=== PATIENT | female | born 1940 | race Caucasian/White ===

== ENCOUNTER 2016-06-06 20:37 | Emergency (ER) | payer MEDICARE ==
[2016-06-06 21:24] VITALS: BP 133/54
[2016-06-06] MEDS ORDERED: BSS OPTH.SOL* BTL ONE ×2 (21:56→22:02)
[2016-06-06] MEDS ORDERED: Fluorescein Sodium TOPICAL* 1 MG TEST ONE (21:56)
--- NOTE | 2016-06-06 22:16 | UC ---
Eye Complaint HPI - HPI Summary HPI Summary: pt is acocmpanied by . Pt reports that [place] and the wind blew dirt/dust into her right eye. Pt reports that she irrigated her right eye with copious amounts of water but still has FB sensation. Pt reports pain worsens with blinking of eye. - History of Current Complaint Chief Complaint: UCEye Stated Complaint: FB RIGHT EYE Time Seen by Provider: 06/06/16 21:51 Hx Obtained From: Patient Hx Last Menstrual Period: n/a ?: No Onset/Duration: Sudden Onset, Lasting Hours Timing: Constant - with blinking Severity Initially: Mild Severity Currently: Mild Character: Foreign Body Sensation Aggravating Factor(s): Light, Other - blinking Associated Signs And Symptoms: Positive: Drainage (Clear) - Allergies/Home Medications Allergies/Adverse Reactions: Allergies Allergy/AdvReac Type Severity Reaction Status Date / Time Adhesive Tape Allergy Intermediate Rash Verified 06/06/16 21:08 Penicillins Allergy Intermediate Hives Verified 06/06/16 21:08 Amoxicillin Allergy Hives Verified 06/06/16 21:08 Prednisone Allergy Facial Verified 06/06/16 21:08 Redness/Flushing Tetracycline AdvReac Intermediate Headache Verified 06/06/16 21:08 Home Medications: Home Medications Meclizine TAB* [Antivert 12.5 TAB*] 25 mg PO TID PRN 06/06/16 [History Confirmed 06/06/16] PMH/Surg Hx/FS Hx/Imm Hx Previously Healthy: Yes Endocrine History Of: Denies: Diabetes Cardiovascular History Of: Denies: Hypertension, Congestive Heart Failure Respiratory History Of: Reports: Asthma, Bronchitis - HX OF GI/ History Of: Denies: Renal Disease Cancer History Of: Denies: Breast Cancer - Surgical History Surgical History: Yes Surgery Procedure, Year, and Place: GALLBLADDER 2004[id number]. right knee surgery- [facility]. x2[facility] wall hernia[facility], then mesh infection and subsequent removal. Hernia repair Mar 2016. TUBAL LIGATION - Family History Known Family History: Positive: None - Social History Occupation: Retired Alcohol Use: None Substance Use Type: None Smoking Status (MU): Never Smoked Tobacco - Immunization History Most Recent Influenza Vaccination: 2016 Most Recent Tetanus Shot: UTD Most Recent Pneumonia Vaccination: 11/2013 Review of Systems Constitutional: Negative Skin: Negative Eyes: Drainage, Eye Redness, Other - FB sensation ENT: Negative Respiratory: Negative Cardiovascular: Negative Gastrointestinal: Negative Genitourinary: Negative Motor: Negative Neurovascular: Negative Musculoskeletal: Negative Neurological: Negative Psychological: Negative All Other Systems Reviewed And Are Negative: Yes Physical Exam Triage Information Reviewed: Yes Appearance: Well-Appearing Vital Signs: Initial Vital Signs Temp 98.1 F 06/06/16 21:12 Pulse 80 06/06/16 21:12 Resp 18 06/06/16 21:12 BP 133/54 06/06/16 21:12 Pulse Ox 98 06/06/16 21:12 Vital Signs Reviewed: Yes Eye Exam: Other - scleritis Eyes: Positive: Conjunctiva Clear, Other: - negative uptake for flurouscein, no fb visualized Respiratory Exam: Other Respiratory: Positive: No respiratory distress Musculoskeletal Exam: Normal Neurological Exam: Normal Psychological Exam: Normal Skin Exam: Normal Eye Complaint Course/Dx - Differential Dx/Diagnosis Differential Diagnosis/HQI/PQRI: Corneal Abrasion, Foreign Body Provider Diagnoses: possible FB right eye. eye pain right eye Discharge - Discharge Plan Condition: Stable Disposition: HOME Patient Education Materials: Eye Pain (ED) Referrals: Jonh Gallardo MD [Primary Care Provider] - Additional Instructions: Please follow up with your eye care provider tomorrow if your symptoms do not improve.
== END 2016-06-06 22:18 | disposition home or self-care (01) ==
LOC: UCCORT 20:37
DX: H57.11 Ocular pain, right eye (principal)
CPT/HCPCS: 99212; A9270-GY; G0463

== ENCOUNTER 2017-10-23 11:41 | Emergency (ER) | payer MEDICARE ==
--- OUTSIDE RECORDS SUMMARY | 2017-10-23 12:00 | XMS REPORT ---
:1940 External Reference #:[id number] Author Organization [facility] Address [address] [place] [address] Phone [phone] Care Team Providers Name Role Phone Jonh Gallardo M.D. Primary Care Physician Unavailable Payers Type Date Identification Numbers Payment Provider Subscriber Medicare Primary Effective: Policy Number: Medicare-National Mariangel Oviedo 2006 [id number] [id number] PayID: [id number] [address] [place] [address] Medigap Part B Effective: Policy Number: Aarp United Mariangel Oviedo 2014 [id number] Healthcare Group Name: Medicare Supplement Plan [facility] Claims PayID: [id number] [address] [place] [address] Medigap Part B Effective: 2009 Policy Number: [id number] Anabell Oviedo Expires: 2014 [facility] [address] [place] [address] Problems Date Description Provider Status Onset: 03/15/2017 Uncomplicated moderate persistent LORI EncarnacionC Active asthma Onset: 07/28/2016 Mild persistent asthma Cristian Abreu M.D. Active Onset: 07/28/2016 Body mass index 30+ - obesity Cristian Abreu M.D. 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 Has a window air conditioner Home Environment Stairs are present Home Environment The basement is dry Home Environment Finished Basement Home Environment Cotton Comforter Home Environment Mattress is 8 years old Home Environment Mattress is not encased in an allergy proof case Home Environment Regular Mattress Home Environment Pillows are polyester Home Environment Pillows are not encased in an allergy proof case Home Environment Does not use a dehumidifier Home Environment There are draperies in the home Home Environment The home is not daryl Home Environment The floors are wood Home Environment The floors are carpeted Home Environment Uses hot water heating Home Environment Uses baseboard heating Home Environment [place] Home Environment Water Source: Well Smoke-Free Home is smoke-free Pets 1 cat Pets 1 dog Occupation Retired ETOH Use Denies alcohol use Smoking Patient has never smoked Recreational Drug Use Denies Drug Use Allergies, Adverse Reactions, Alerts Date Description Reaction Status Severity Comments 08/07/2001 Amoxicillin Urticaria active 07/28/2016 Tetracycline active headache 09/28/2017 Adhesives (Tape) reddens skin active Medications Medication Date Status Form Strength Qnty SIG Indications Ordering Provider Proair HFA 06/22/ Active Aerosol 108(90Base 1units 2 puffs q4 2016 ) mcg/Act hours when Uldrich, needed. FOUNTAIN WAITRESS/WAITER-C pre-exerci se 2 puffs Flovent HFA 02/25/ Active Aerosol 110mcg/Act 1units inhale 2 J45.40 Alba 2016 puffs by Uldrich, mouth FOUNTAIN WAITRESS/WAITER-C twice a day Omeprazole / Active Capsules DR 40mg once a day Unknown 0000 Sucralfate / Active Tablets 1gm once a day Unknown 0000 Vitamin B12 / Active Tablets 100mcg once a day Unknown 0000 Calcium / Active Capsules 200-100-33 Unknown 600/Magnesium 0000 .3mg-mg-Un 300/Vitamin D it Fish Oil / Active Capsules 600mg once a day Unknown 0000 Nystatin / Active Cream [id number] Morgan To Unknown 0000 /GM Affected Areas Under Breasts tid prn Metamucil / Active Packet 51.7% once a Unknown Fiber 0000 day. Domperidone / Active 10mg once a day Unknown 0000 Fluticasone / Active Suspension 50mcg/Act 16unit 1 spray in Alba Propionate 0000 s each Uldrich, nostril FOUNTAIN WAITRESS/WAITER-C twice daily Vitamin D3 / Active Capsules 1000Unit 1 by mouth Unknown 0000 every day Medications Administered in Office Medication Date Status Form Strength Qnty SIG Indications Ordering Provider Injection 09/28/ Administered Injection Allergy 2017 Injection Injection 08/01/ Administered Injection Allergy 2017 Injection Injection 07/17/ Administered Injection Allergy 2017 Injection Injection 07/03/ Administered Injection Cristian Goldie 2017 Deisy Abreu Injection 07/03/ Administered Injection Allergy 2017 Injection Injection 06/19/ Administered Injection Allergy 2017 Injection Injection 05/29/ Administered Injection Allergy 2017 Injection Injection 05/15/ Administered Injection Allergy 2017 Injection Injection 05/03/ Administered Injection Allergy 2018 Injection Injection 04/19/ Administered Injection Allergy 2018 Injection Injection 03/13/ Administered Injection Allergy 2018 Injection Injection 02/15/ Administered Injection Allergy 2018 Injection Injection 01/09/ Administered Injection Allergy 2018 Injection Injection 12/07/ Administered Injection Allergy 2017 Injection Injection 11/07/ Administered Injection Allergy 2017 Injection Injection 10/24/ Administered Injection Allergy 2017 Injection Injection 10/03/ Administered Injection Allergy 2017 Injection Injection 09/19/ Administered Injection Allergy 2016 Injection Injection 08/29/ Administered Injection Allergy 2016 Injection Injection 08/15/ Administered Injection Allergy 2016 Injection Injection 08/01/ Administered Injection Allergy 2016 Injection Injection 07/20/ Administered Injection Allergy 2016 Injection Injection 07/06/ Administered Injection Allergy 2016 Injection Injection 06/21/ Administered Injection Allergy 2016 Injection Injection 06/08/ Administered Injection Allergy 2016 Injection Injection 05/30/ Administered Injection Cristian Abreu M.D. Injection 05/30/ Administered Injection Allergy 2016 Injection Injection 05/16/ Administered Injection Allergy 2016 Injection Injection 05/02/ Administered Injection Allergy 2016 Injection Injection 04/18/ Administered Injection Allergy 2016 Injection Injection 04/06/ Administered Injection Allergy 2016 Injection Injection 03/07/ Administered Injection Allergy 2016 Injection Injection // Administered Injection Cristian Amezcua 2016 Deisy Abreu Injection 01/31/ Administered Injection Allergy 2016 Injection Injection 01/05/ Administered Injection Allergy 2016 Injection Injection 12/01/ Administered Injection Allergy 2015 Injection Injection 11/15/ Administered Injection Allergy 2015 Injection Injection 10/20/ Administered Injection Allergy 2015 Injection Injection 10/04/ Administered Injection Allergy 2015 Injection Injection 09/20/ Administered Injection Allergy 2015 Injection Injection 08/30/ Administered Injection Allergy 2015 Injection Injection 08/09/ Administered Injection Allergy 2015 Injection Injection 07/19/ Administered Injection Allergy 2015 Injection Injection 06/28/ Administered Injection Allergy 2015 Injection Injection 06/14/ Administered Injection Allergy 2015 Injection Injection 06/02/ Administered Injection Allergy 2015 Injection Injection 05/17/ Administered Injection Allergy 2015 Injection Injection 04/26/ Administered Injection Allergy 2015 Injection Injection 04/12/ Administered Injection Allergy 2015 Injection Injection 02/18/ Administered Injection Allergy 2015 Injection Injection 01/19/ Administered Injection Allergy 2016 Injection Injection 12/22/ Administered Injection Allergy 2015 Injection Injection 11/24/ Administered Injection Allergy 2015 Injection Injection 11/17/ Administered Injection Allergy 2015 Injection Injection 11/10/ Administered Injection Allergy 2015 Injection Injection 11/03/ Administered Injection Allergy 2015 Injection Injection 10/29/ Administered Injection Allergy 2015 Injection Injection 10/06/ Administered Injection Allergy 2015 Injection Injection 09/15/ Administered Injection Allergy 2015 Injection Injection 08/18/ Administered Injection Allergy 2015 Injection Injection 06/23/ Administered Injection Allergy 2015 Injection Injection 06/04/ Administered Injection Allergy 2015 Injection Injection 05/19/ Administered Injection Allergy 2015 Injection Injection 05/05/ Administered Injection Allergy 2015 Injection Injection 04/28/ Administered Injection Allergy 2015 Injection Injection 03/17/ Administered Injection Allergy 2015 Injection Injection 02/10/ Administered Injection Allergy 2015 Injection Injection 01/06/ Administered Injection Allergy 2015 Injection Injection 12/02/ Administered Injection Allergy 2013 Injection Injection 11/04/ Administered Injection Allergy 2013 Injection Injection 10/21/ Administered Injection Jj 2013 Deisy Monson Injection 10// Administered Injection Allergy 2013 Injection Injection 10/07/ Administered Injection Jj 2013 Deisy Monson Injection 10/07/ Administered Injection Allergy 2013 Injection Injection 09/16/ Administered Injection Jj 2013 Deisy Monson Injection 09/16/ Administered Injection Allergy 2013 Injection Injection 09/02/ Administered Injection Jj 2013 Deisy Monson Injection 09/02/ Administered Injection Allergy 2013 Injection Injection 08/19/ Administered Injection Allergy 2013 Injection Injection 08/05/ Administered Injection Jj 2013 Deisy Monson Injection 08/05/ Administered Injection Allergy 2013 Injection Injection 08/28/ Administered Injection Jj 2013 Deisy Monson Injection // Administered Injection Allergy 2013 Injection Injection // Administered Injection Jj 2013 Deisy Monson Injection 07/08/ Administered Injection Allergy 2013 Injection Injection 07/31/ Administered Injection Allergy 2013 Injection Injection // Administered Injection Allergy 2013 Injection Injection // Administered Injection Jj 2013 Deisy Monson Injection // Administered Injection Allergy 2013 Injection Injection 05// Administered Injection Jj 2013 Deisy Monson Injection // Administered Injection Allergy 2013 Injection Injection 05/29/ Administered Injection Jj 2013 Deisy Monson Injection 05/29/ Administered Injection Allergy 2013 Injection Injection 05/01/ Administered Injection Jj 2013 Deisy Monson Injection 05/01/ Administered Injection Allergy 2013 Injection Injection 04/05/ Administered Injection Allergy 2013 Injection Injection 03/08/ Administered Injection Jj 2013 Deisy Monson Injection 03/08/ Administered Injection Allergy 2013 Injection Injection 02/08/ Administered Injection Jj 2013 Deisy Monson Injection // Administered Injection Allergy 2013 Injection Injection 12/26/ Administered Injection Jj 2012 Deisy Monson Injection // Administered Injection Allergy 2012 Injection Injection 11/30/ Administered Injection Jj 2012 Deisy Monson Injection 11/30/ Administered Injection Allergy 2012 Injection Injection 10/24/ Administered Injection Allergy 2012 Injection Injection 09/05/ Administered Injection Jj 2012 Deisy Monson Injection 09/05/ Administered Injection Allergy 2012 Injection Injection // Administered Injection Jj 2012 Deisy Monson Injection // Administered Injection Allergy 2012 Injection Injection 08// Administered Injection Jj 2012 Deisy Monson Injection // Administered Injection Allergy 2012 Injection Injection 08/29/ Administered Injection Jj 2012 Deisy Monson Injection 08/29/ Administered Injection Allergy 2012 Injection Injection 08/03/ Administered Injection Jj 2012 Deisy Monson Injection 08/03/ Administered Injection Allergy 2012 Injection Injection 07/18/ Administered Injection Tamanna Chiquis 2012 Deisy Chi Injection 06/11/ Administered Injection Jj 2012 Deisy Monson Injection 07/18/ Administered Injection Allergy 2012 Injection Injection 07/04/ Administered Injection Jj 2012 Deisy Monson Injection 07/04/ Administered Injection Allergy 2012 Injection Injection 06/20/ Administered Injection Jj 2012 Deisy Monson Injection 06/20/ Administered Injection Allergy 2012 Injection Injection 06/06/ Administered Injection Jj 2012 Deisy Monson Injection 06/06/ Administered Injection Allergy 2012 Injection Injection 05/23/ Administered Injection Jj 2012 Deisy Monson Injection 05/23/ Administered Injection Allergy 2012 Injection Injection 05/09/ Administered Injection Jj 2012 Deisy Monson Injection 05/09/ Administered Injection Allergy 2012 Injection Injection 04/18/ Administered Injection Jj 2012 Deisy Monson Injection 03/21/ Administered Injection Jj 2012 Deisy Monson Injection 02/21/ Administered Injection Jj 2012 Deisy Monson Injection 01/17/ Administered Injection Jj 2011 Deisy Monson Injection 11/22/ Administered Injection Jj 2011 Deisy Monson Injection 11/01/ Administered Injection Jj 2011 Deisy Monson Injection 10/18/ Administered Injection Jj 2011 Deisy Monson Injection 09/27/ Administered Injection Jj 2011 Deisy Monson Injection 09/13/ Administered Injection Jj 2011 Deisy Monson Injection 08/30/ Administered Injection Jj 2011 Deisy Monson Injection 08/16/ Administered Injection Jj 2011 Deisy Monson Injection 08/02/ Administered Injection Jj 2011 Deisy Monson Injection 07/21/ Administered Injection Jj 2011 Deisy Monson Injection 07/05/ Administered Injection Jj 2011 Deisy Monson Injection 06/23/ Administered Injection Jj 2011 Deisy Monson Injection 06/07/ Administered Injection Jj 2011 Deisy Monson Injection 05/26/ Administered Injection Jj 2011 Deisy Monson Injection 05/10/ Administered Injection Jj 2011 Deisy Monson Celestone/Cor 05/03/ Administered Injection Jj tisone 2011 Ermias, [id number] M.DNito cc Injection 04/19/ Administered Injection Jj 2011 Deisy Monson Injection 04/06/ Administered Injection Jj 2011 Deisy Monson Injection 03/09/ Administered Injection Jj 2011 Deisy Monson Injection 02/09/ Administered Injection Jj 2011 Deisy Monson Injection 01/12/ Administered Injection Jj 2010 Deisy Monson Injection 12/17/ Administered Injection Jj 2010 Deisy Monson Injection 11/26/ Administered Injection Jj 2010 Deisy Monson Injection 11/10/ Administered Injection Jj 2010 Deisy Monson Injection 10/27/ Administered Injection Jj 2010 Deisy Monson Injection 10/13/ Administered Injection Jj 2010 Deisy Monson Injection 09/22/ Administered Injection Jj 2010 Deisy Monson Injection 09/10/ Administered Injection Jj 2010 Deisy Monson Injection 08/25/ Administered Injection Jj 2010 Deisy Monson Injection 08/11/ Administered Injection Jj 2010 Deisy Monson Injection 07/28/ Administered Injection Jj 2010 Deisy Monson Injection 06/25/ Administered Injection Jj 2010 Deisy Monson Celestone/Cor 06/18/ Administered Injection Jj tisone 2010 Ermias [id number] 1 M.DNito cc Injection 06/02/ Administered Injection Jj 2010 Deisy Monson Injection 05/19/ Administered Injection Jj 2010 Deisy Monson Injection 05/05/ Administered Injection Jj 2010 Deisy Monson Injection 04/21/ Administered Injection Jj 2010 Deisy Monson Injection 03/19/ Administered Injection Jj 2010 Deisy Monson Injection 02/12/ Administered Injection Jj 2010 Deisy Monson Injection 01/20/ Administered Injection Jj 2009 Diesy Monson Injection 12/25/ Administered Injection Jj 2009 Deisy Monson Injection 11/27/ Administered Injection Jj 2009 Deisy Monson Injection 11/11/ Administered Injection Tamanna M 2009 Deisy Chi Injection 10/28/ Administered Injection Jj 2009 Deisy Monson Injection 10/16/ Administered Injection Jj 2009 Deisy Monson Injection 09/30/ Administered Injection Jj 2009 Deisy Monson Injection 09/16/ Administered Injection Jj 2009 Deisy Monson Injection 08/26/ Administered Injection Jj 2009 Deisy Monson Injection 08/12/ Administered Injection Jj 2009 Deisy Monson Injection 07/22/ Administered Injection Jj 2009 Deisy Monson Injection 07/01/ Administered Injection Jj 2009 Deisy Monson Injection 06/17/ Administered Injection Jj 2009 Deisy Monson Injection 06/03/ Administered Injection Jj 2009 Deisy Monson Injection 05/20/ Administered Injection Jj 2009 Deisy Monson Injection 05/06/ Administered Injection Jj 2009 Deisy Monson Injection 04/08/ Administered Injection Jj 2009 Deisy Monson Injection 03/11/ Administered Injection Tamanna M 2009 Deisy Chi Injection 02/11/ Administered Injection Jj 2009 Deisy Monson Injection 01/16/ Administered Injection Jj 2008 Deisy Monson Injection 12/17/ Administered Injection Christopher 2008 Jes[facility]s House M.D. Injection 11/19/ Administered Injection Jj 2008 Deisy Monson Injection 10/29/ Administered Injection Jj 2008 Deisy Monson Injection 10/15/ Administered Injection Jj 2008 Deisy Monson Injection 10/01/ Administered Injection Jj 2008 Deisy Monson Injection 09/10/ Administered Injection Jj 2008 Deisy Monson Injection 08/27/ Administered Injection Jj 2008 Deisy Monson Injection 08/13/ Administered Injection Jj 2008 Deisy Monsno Injection 08/01/ Administered Injection Jj 2008 Deisy Monson Injection 07/18/ Administered Injection Jj 2008 Deisy Monson Injection 07/04/ Administered Injection Jj 2009 Deisy Monson Injection 06/25/ Administered Injection Jj 2009 Deisy Monson Injection 06/13/ Administered Injection Jj 2008 Deisy Monson Injection 05/30/ Administered Injection Jj 2008 Deisy Monson Injection 05/21/ Administered Injection Jj 2009 Deisy Monson Injection 04/23/ Administered Injection Jj 2008 Deisy Monson Injection 03/26/ Administered Injection Jj 2009 Deisy Monson Injection 02/26/ Administered Injection Jj 2008 Deisy Monson Injection 01/24/ Administered Injection Jj 2007 Deisy Monson Injection 12/25/ Administered Injection Jj 2007 Deisy Monson Injection 11/20/ Administered Injection Jj 2007 Deisy Monson Injection 11/06/ Administered Injection Jj 2007 Deisy Monson Injection 10/23/ Administered Injection Jj 2007 Deisy Monson Injection 10/09/ Administered Injection Jj 2007 Deisy Monson Injection 09/25/ Administered Injection Jj 2007 Deisy Monson Injection 09/13/ Administered Injection Jj 2007 Deisy Monson Injection 08/21/ Administered Injection Jj 2007 Deisy Monson Injection 08/07/ Administered Injection Jj 2007 Deisy Monson Injection 07/26/ Administered Injection Jj 2007 Deisy Monson Injection 06/19/ Administered Injection Jj 2007 Deisy Monson Injection 05/29/ Administered Injection Jj 2007 Deisy Monson Injection 05/08/ Administered Injection Jj 2007 Deisy Monson Injection 04/24/ Administered Injection Jj 2007 Deisy Monson Injection 03/28/ Administered Injection Jj 2007 Deisy Monson Injection 03/07/ Administered Injection Jj 2008 Deisy Monson Injection 02/09/ Administered Injection Jj 2008 Deisy Monson Injection 01/17/ Administered Injection Jj 2007 Deisy Monson Injection 01/03/ Administered Injection Jj 2006 Deisy Monson Injection 12/22/ Administered Injection Jj 2007 Deisy Monson Injection 12/06/ Administered Injection Jj 2007 Deisy Monson Injection 11/24/ Administered Injection Jj 2007 Deisy Monson Injection 11/08/ Administered Injection Jj 2007 Deisy Monson Injection 10/25/ Administered Injection Jj 2007 Deisy Monson Injection 10/11/ Administered Injection Jj 2007 Deisy Monson Injection 09/27/ Administered Injection Jj 2007 Deisy Monson Injection 09/13/ Administered Injection Jj 2007 Deisy Monson Injection 08/30/ Administered Injection Jj 2006 Deisy Monson Injection 08/16/ Administered Injection Jj 2007 Deisy Monson Injection 08/02/ Administered Injection Jj 2007 Deisy Monson Injection 07/21/ Administered Injection Jj 2007 Deisy Monson Injection 06/28/ Administered Injection Jj 2007 Deisy Monson Injection 06/14/ Administered Injection Jj 2007 Deisy Monson Injection 05/31/ Administered Injection Jj 2007 Deisy Monson Injection 05/19/ Administered Injection Jj 2007 Deisy Monson Injection 05/05/ Administered Injection Jj 2007 Deisy Monson Injection 04/19/ Administered Injection Jj 2007 Deisy Monson Injection 03/31/ Administered Injection Jj 2007 Deisy Monson Injection 03/17/ Administered Injection Jj 2007 Deisy Monson Injection 03/03/ Administered Injection Jj 2007 Deisy Monson Injection 02/15/ Administered Injection Jj 2007 Deisy Monson Injection 02/01/ Administered Injection Jj 2006 Deisy Monson Injection 01/25/ Administered Injection Jj 2006 Deisy Monson Injection 01/06/ Administered Injection Jj 2006 Deisy Monson Injection 11/30/ Administered Injection Jj 2006 Deisy Monson Injection 11/16/ Administered Injection Jj 2006 Deisy Monson Injection 11/04/ Administered Injection Jj 2006 Deisy Monson Injection 09/28/ Administered Injection Jj 2006 Deisy Monson Injection 09/21/ Administered Injection Jj 2006 Deisy Monson Injection 09/07/ Administered Injection Jj 2006 Deisy Monson Injection 08/24/ Administered Injection Jj 2006 Deisy Monson Injection 08/03/ Administered Injection Jj 2006 Deisy Monson Injection 07/13/ Administered Injection Jj 2006 Deisy Monson Injection 06/24/ Administered Injection Jj 2006 Deisy Monson Injection 06/01/ Administered Injection Jj 2006 Deisy Monson Injection 05/18/ Administered Injection Jj 2006 Deisy Monson Injection 04/20/ Administered Injection Jj 2006 Deisy Monson Injection 03/23/ Administered Injection Jj 2006 Deisy Monson Injection 02/23/ Administered Injection Jj 2006 Deisy Monson Injection 01/19/ Administered Injection Jj 2005 Deisy Monson Injection 12/29/ Administered Injection Jj 2005 Deisy Monson Injection 12/17/ Administered Injection Jj 2005 Deisy Monson Injection 11/26/ Administered Injection Jj 2005 Deisy Monson Injection 11/12/ Administered Injection Jj 2005 Deisy Monson Injection 10/27/ Administered Injection Jj 2005 Deisy Monson Injection 10/08/ Administered Injection Jj 2005 Deisy Monson Injection 09/24/ Administered Injection Jj 2004 Deisy Monson Injection 09/10/ Administered Injection Jj 2004 Deisy Monson Injection 08/20/ Administered Injection Jj 2004 Deisy Monson Injection 08/06/ Administered Injection Jj 2005 Deisy Monson Injection 07/23/ Administered Injection Jj 2005 Deisy Monson Injection 07/09/ Administered Injection Jj 2005 Deisy Monson Injection 06/25/ Administered Injection Jj 2005 Deisy Monson Injection 06/11/ Administered Injection Jj 2005 Deisy Monson Injection 05/28/ Administered Injection Jj 2005 Jaki MonsonNito Injection 05/14/ Administered Injection Jj 2005 Chiquis Monson.DNito Injection 04/30/ Administered Injection Jj 2005 Ermias M.D. Injection 04/14/ Administered Injection Jj 2005 Ermias M.D. Injection 03/17/ Administered Injection Jj 2005 Chiquis Monson.DNito Injection 02/17/ Administered Injection Jj 2005 Josefina MonsonDNito Injection 01/22/ Administered Injection Jj 2003 Chiquis Monson.DNito Injection 12/25/ Administered Injection Jj 2004 Chiquis Monson.DNito Injection 11/27/ Administered Injection Jj 2004 Chiquis Monson.D. Injection 11/11/ Administered Injection Jj 2004 Ermias M.D. Injection 10/30/ Administered Injection Jj 2004 Chiquis Monson.D. Injection 10/16/ Administered Injection Jj 2004 Chiquis Monson.D. Injection 09/25/ Administered Injection Jj 2004 Deisy Monson Injection 09/18/ Administered Injection Jj 2004 Josefina MonsonDNito Injection 09/04/ Administered Injection Jj 2004 Chiquis Monson.DNito Injection 08/21/ Administered Injection Jj 2004 Josefina MonsonDNito Injection 08/07/ Administered Injection Jj 2004 Chiquis Monson.DNito Injection 07/24/ Administered Injection Jj 2004 Ermias, M.D. Injection 07/10/ Administered Injection Jj 2004 Chiquis Monson.D. Injection 06/26/ Administered Injection Jj 2004 Chiquis Monson.D. Injection 06/12/ Administered Injection Jj 2004 Ermias M.D. Injection 05/29/ Administered Injection Jj 2004 Chiquis Monson.D. Injection 05/15/ Administered Injection Jj 2004 Chiquis Monson.D. Injection 04/24/ Administered Injection Jj 2004 Ermias M.D. Injection 04/17/ Administered Injection Jj 2004 Ermias M.D. Injection 04/04/ Administered Injection Jj 2004 Chiquis Monson.D. Injection 03/21/ Administered Injection Jj 2004 Chiquis Monson.D. Injection 03/07/ Administered Injection Jj 2004 Chiquis Monson.D. Injection 01/15/ Administered Injection Jj 2004 Deisy Monson Injection 01/29/ Administered Injection Jj 2002 Deisy Monson Injection 01/15/ Administered Injection Jj 2002 Deisy Monson Injection 01/01/ Administered Injection Jj 2002 Deisy Monson Injection 12/20/ Administered Injection Jj 2002 Deisy Monson Injection 12/06/ Administered Injection Jj 2002 Deisy Monson Injection 11/22/ Administered Injection Jj 2002 Deisy Monson Injection 11/08/ Administered Injection Jj 2002 Deisy Monson Injection 10/25/ Administered Injection Jj 2002 Deisy Monson Injection 10/11/ Administered Injection Jj 2002 Deisy Monson Injection 09/25/ Administered Injection Jj 2002 Deisy Monson Injection 09/06/ Administered Injection Jj 2002 Deisy Monson Immunizations CPT Code Status Date Vaccine Lot # [id number] Given Unknown Pneumococcal Vaccine 19750 Given Unknown Pneumococcal Vaccine 89879 Given Unknown Pneumococcal Vaccine 41222 Given Unknown Influenza Vaccine 26701 Given Unknown Influenza Vaccine 87558 Given Unknown Influenza Vaccine Vital Signs Date Vital Result Comment 09/28/2017 Height 62 inches 5'2" Weight 194.00 lb Weight in kg's 87.998 Respiratory Rate 20 /min Heart Rate 83 /min O2 % BldC Oximetry 97 % BP Systolic 133 mmHg BP Diastolic 65 mmHg Asthma Control Test 24 BMI (Body Mass Index) 35.5 kg/m2 03/24/2017 Height 62 inches 5'2" Weight 198.00 lb Weight in kg's 89.813 Respiratory Rate 18 /min Heart Rate 100 /min O2 % BldC Oximetry 97 % BP Systolic 138 mmHg BP Diastolic 75 mmHg Asthma Control Test 21 BMI (Body Mass Index) 36.2 kg/m2 03/15/2017 Height 62 inches 5'2" Weight 198.00 lb Weight in kg's 89.813 Respiratory Rate 20 /min Heart Rate 94 /min Body Temperature 98.3 F O2 % BldC Oximetry 96 % BP Systolic 127 mmHg BP Diastolic 66 mmHg Asthma Control Test 23 BMI (Body Mass Index) 36.2 kg/m2 02/15/2017 Height 62 inches 5'2" Weight 198.00 lb Weight in kg's 89.813 Respiratory Rate 20 /min Heart Rate 90 /min Body Temperature 99.0 F O2 % BldC Oximetry 98 % BP Systolic 132 mmHg BP Diastolic 60 mmHg Asthma Control Test 23 BMI (Body Mass Index) 36.2 kg/m2 01/25/2017 Height 62 inches 5'2" Weight 190.00 lb Weight in kg's 86.184 Respiratory Rate 16 /min Heart Rate 84 /min 84 First Take Body Temperature 99.1 F O2 % BldC Oximetry 96 % BP Systolic 121 mmHg 141/74 First Take BP Diastolic 57 mmHg 141/74 First Take Asthma Control Test 25 BMI (Body Mass Index) 34.7 kg/m2 07/28/2016 Height 62 inches 5'2" Weight 190.00 lb Weight in kg's 86.184 Respiratory Rate 20 /min Heart Rate 91 /min O2 % BldC Oximetry 97 % BP Systolic 123 mmHg BP Diastolic 57 mmHg Asthma Control Test 24 BMI (Body Mass Index) 34.7 kg/m2 08/05/2015 Height 62 inches 5'2" Weight 186.00 lb Weight in kg's 84.370 Respiratory Rate 16 /min Heart Rate 90 /min O2 % BldC Oximetry 97 % BP Systolic 132 mmHg BP Diastolic 61 mmHg Asthma Control Test 25 BMI (Body Mass Index) 34.0 kg/m2 02/25/2015 Height 62 inches 5'2" Weight 186.00 lb Weight in kg's 84.370 Respiratory Rate 20 /min Heart Rate 93 /min O2 % BldC Oximetry 97 % BP Systolic 111 mmHg BP Diastolic 57 mmHg Asthma Control Test 24 BMI (Body Mass Index) 34.0 kg/m2 03/26/2014 Height 62 inches 5'2" Weight 202.00 lb patient stated Weight in kg's 91.627 Respiratory Rate 16 /min Heart Rate 95 /min O2 % BldC Oximetry 98 % BP Systolic 148 mmHg BP Diastolic 80 mmHg Asthma Control Test 22 BMI (Body Mass Index) 36.9 kg/m2 09/18/2013 Height 62 inches 5'2" Weight 201.00 lb Weight in kg's 91.174 Respiratory Rate 18 /min Heart Rate 79 /min O2 % BldC Oximetry 97 % BP Systolic 128 mmHg BP Diastolic 82 mmHg BMI (Body Mass Index) 36.8 kg/m2 06/12/2013 Height 62.5 inches 5'2.50" Weight 199.00 lb Weight in kg's 90.266 Respiratory Rate 20 /min Heart Rate 93 /min O2 % BldC Oximetry 96 % BP Systolic 136 mmHg BP Diastolic 62 mmHg Asthma Control Test 24 BMI (Body Mass Index) 35.8 kg/m2 01/23/2013 Height 63 inches 5'3" Weight 202.00 lb Weight in kg's 91.627 Respiratory Rate 20 /min Heart Rate 87 /min O2 % BldC Oximetry 96 % BMI (Body Mass Index) 35.8 kg/m2 07/18/2012 Height 64 inches 5'4" Weight 214.00 lb Weight in kg's 97.070 Respiratory Rate 16 /min Heart Rate 87 /min O2 % BldC Oximetry 94 % BP Systolic 124 mmHg BP Diastolic 66 mmHg BMI (Body Mass Index) 36.7 kg/m2 02/29/2012 Respiratory Rate 16 /min Heart Rate 82 /min O2 % BldC Oximetry 94 % Results Description No Information Procedures Date CPT Code Description Status 09/28/2017 29559 Injection Completed 09/28/2017 52114 Pre PFT Completed 09/07/2017 29971 Injection Completed 08/23/2017 72161 Injection Completed 08/09/2017 41696 Injection Completed 08/09/2017 60599 Injection Completed 07/26/2017 33852 Injection Completed 07/05/2017 00040 Injection Completed 06/21/2017 85892 Injection Completed 06/09/2017 45560 Injection Completed 05/26/2017 99953 Injection Completed 04/19/2017 56486 Injection Completed 03/24/2017 22530 Injection Completed 03/15/2017 05422 Ippb Completed 03/15/2017 74025 Pre PFT Completed 02/15/2017 25071 Injection Completed 02/15/2017 47843 Pre PFT Completed 01/13/2017 51482 Injection Completed 12/17/2016 76320 Extract 1-10 Completed 12/14/2016 88501 Injection Completed 11/30/2016 28216 Injection Completed 11/09/2016 06872 Injection Completed 10/26/2016 69874 Injection Completed 10/05/2016 20703 Injection Completed 09/21/2016 08931 Injection Completed 09/07/2016 52938 Injection Completed 08/26/2016 22081 Injection Completed 08/12/2016 12914 Injection Completed 07/28/2016 96552 Injection Completed 07/28/2016 44988 Pre PFT Completed 07/22/2016 14273 Extract 1-10 Completed 07/15/2016 99504 Injection Completed 07/06/2016 62621 Injection Completed 07/06/2016 51322 Injection Completed 06/22/2016 25434 Injection Completed 06/08/2016 96783 Injection Completed 05/25/2016 40993 Injection Completed 05/13/2016 67484 Injection Completed 04/13/2016 59087 Injection Completed 03/09/2016 70858 Injection Completed 03/09/2016 44317 Injection Completed 02/12/2016 08049 Injection Completed 01/08/2016 11414 Injection Completed 12/23/2015 80688 Injection Completed 11/27/2015 58680 Injection Completed 11/12/2015 32728 Extract 1-10 Completed 11/11/2015 48356 Injection Completed 10/28/2015 68873 Injection Completed 10/07/2015 49052 Injection Completed 09/16/2015 77048 Injection Completed 08/26/2015 12927 Injection Completed 08/05/2015 22985 Injection Completed 08/05/2015 64333 Pre PFT Completed 07/22/2015 07863 Injection Completed 07/10/2015 15750 Injection Completed 06/24/2015 44255 Injection Completed 06/03/2015 43602 Injection Completed 05/20/2015 63051 Injection Completed 04/16/2015 87369 Extract 1-10 Completed 03/27/2015 98044 Injection Completed 02/25/2015 15127 Injection Completed 02/25/2015 78712 Pre PFT Completed 01/28/2015 04745 Injection Completed 12/31/2014 83911 Injection Completed 12/24/2014 43743 Injection Completed 12/17/2014 02687 Injection Completed 12/10/2014 59557 Injection Completed 12/05/2014 12656 Injection Completed 11/12/2014 29221 Injection Completed 10/22/2014 51327 Injection Completed 09/24/2014 42318 Injection Completed 07/30/2014 75825 Injection Completed 07/11/2014 39590 Injection Completed 07/03/2014 98384 Extract 1-10 Completed 06/25/2014 25235 Injection Completed 06/11/2014 55177 Injection Completed 06/04/2014 86198 Injection Completed 04/23/2014 27001 Injection Completed 03/26/2014 22318 Pre PFT Completed 03/19/2014 53694 Injection Completed 02/12/2014 45164 Injection Completed 01/08/2014 73979 Injection Completed 12/11/2013 74470 Injection Completed 11/27/2013 59954 Injection Completed 11/27/2013 69496 Injection Completed 11/13/2013 35943 Injection Completed 11/13/2013 30335 Injection Completed 10/23/2013 16706 Injection Completed 10/23/2013 81132 Injection Completed 10/18/2013 71378 Extract 1-10 Completed 10/09/2013 28250 Injection Completed 10/09/2013 41716 Injection Completed 09/25/2013 22128 Injection Completed 09/18/2013 54670 Pre PFT Completed 09/18/2013 48420 Pre PFT Completed 09/11/2013 45666 Injection Completed 09/11/2013 70129 Injection Completed 08/28/2013 81504 Injection Completed 08/28/2013 20985 Injection Completed 08/14/2013 71127 Injection Completed 08/14/2013 28028 Injection Completed 07/31/2013 50258 Injection Completed 07/17/2013 96375 Injection Completed 06/26/2013 27446 Injection Completed 06/26/2013 05692 Injection Completed 06/12/2013 50944 Pre PFT Completed 06/12/2013 33107 Injection Completed 06/12/2013 98988 Injection Completed 05/29/2013 52830 Injection Completed 05/29/2013 14595 Injection Completed 05/01/2013 39881 Injection Completed 05/01/2013 83861 Injection Completed 04/05/2013 87314 Injection Completed 03/08/2013 07628 Injection Completed 03/08/2013 35736 Injection Completed 02/08/2013 54014 Injection Completed 02/08/2013 73992 Injection Completed 01/23/2013 97398 Oxygen Level - Pulse Oximiter Completed 01/01/2013 86330 Extract 1-10 Completed 12/26/2012 23238 Injection Completed 12/26/2012 18545 Injection Completed 11/30/2012 27434 Injection Completed 11/30/2012 32597 Injection Completed 10/24/2012 79084 Injection Completed 10/12/2012 94325 Injection Completed 10/12/2012 66707 Injection Completed 09/26/2012 42609 Injection Completed 09/26/2012 83823 Injection Completed 09/12/2012 66438 Injection Completed 09/12/2012 92243 Injection Completed 08/29/2012 10740 Injection Completed 08/29/2012 98502 Injection Completed 08/03/2012 23497 Injection Completed 08/03/2012 24261 Injection Completed 07/18/2012 69331 Injection Completed 07/18/2012 38681 Injection Completed 07/18/2012 04853 Injection Completed 07/18/2012 53272 Oxygen Level - Pulse Oximiter Completed 07/18/2012 04715 Pulmonary Function Test Completed 07/04/2012 51234 Injection Completed 07/04/2012 43065 Injection Completed 06/20/2012 37617 Injection Completed 06/20/2012 87447 Injection Completed 06/06/2012 26475 Injection Completed 06/06/2012 90163 Injection Completed 05/26/2012 73191 Extract 1-10 Completed 05/23/2012 36294 Injection Completed 05/23/2012 22144 Injection Completed 05/09/2012 42042 Injection Completed 05/09/2012 70468 Injection Completed 04/18/2012 88604 Injection Completed 03/21/2012 74767 Injection Completed 02/22/2012 63718 Injection Completed 01/18/2012 67096 Injection Completed 11/23/2011 14991 Injection Completed 11/02/2011 42213 Injection Completed 10/19/2011 41843 Injection Completed 09/28/2011 39950 Injection Completed 09/14/2011 10707 Injection Completed 08/31/2011 93363 Injection Completed 08/26/2011 49886 Extract 1-10 Completed 08/17/2011 20232 Injection Completed 08/03/2011 27067 Injection Completed 07/22/2011 62482 Injection Completed 07/06/2011 91390 Injection Completed 07/06/2011 89075 Pulmonary Function Test Completed 06/24/2011 98297 Injection Completed 06/08/2011 21902 Injection Completed 05/27/2011 11411 Injection Completed 05/11/2011 88204 Injection Completed 04/20/2011 61953 Injection Completed 04/06/2011 69699 Injection Completed 03/09/2011 03696 Injection Completed 02/11/2011 17150 Extract 1-10 Completed 02/09/2011 53244 Injection Completed 01/12/2011 92551 Injection Completed 12/17/2010 56430 Injection Completed 11/26/2010 45426 Injection Completed 11/10/2010 51815 Injection Completed 10/27/2010 06889 Injection Completed 10/13/2010 87520 Injection Completed 09/22/2010 80811 Injection Completed 09/22/2010 88248 Pulmonary Function Test Completed 09/10/2010 99678 Injection Completed 08/25/2010 69711 Injection Completed 08/11/2010 45430 Injection Completed 08/11/2010 75981 Extract 1-10 Completed 07/28/2010 06620 Injection Completed 06/25/2010 86833 Injection Completed 06/18/2010 48809 Pulmonary Function Test Completed 06/02/2010 95966 Injection Completed 05/19/2010 35318 Injection Completed 05/05/2010 51718 Injection Completed 04/21/2010 62730 Injection Completed 03/19/2010 47928 Injection Completed 02/12/2010 30180 Injection Completed 01/20/2010 75831 Injection Completed 12/25/2009 82319 Injection Completed 11/27/2009 36026 Injection Completed 11/27/2009 05710 Pulmonary Function Test Completed 11/13/2009 43818 Extract 1-10 Completed 11/11/2009 88347 Injection Completed 10/28/2009 48626 Injection Completed 10/16/2009 26214 Injection Completed 09/30/2009 76865 Injection Completed 09/16/2009 43939 Injection Completed 08/26/2009 72393 Injection Completed 08/12/2009 53265 Injection Completed 07/22/2009 20776 Injection Completed 07/01/2009 48901 Injection Completed 06/17/2009 20143 Injection Completed 06/05/2009 18339 Extract 1-10 Completed 06/03/2009 12180 Injection Completed 05/20/2009 84925 Injection Completed 05/06/2009 90846 Injection Completed 04/08/2009 10328 Injection Completed 03/11/2009 68688 Injection Completed 02/11/2009 82243 Injection Completed 01/16/2009 29054 Injection Completed 12/17/2008 05437 Injection Completed 12/05/2008 77305 Pulmonary Function Test Completed 11/19/2008 35116 Injection Completed 10/29/2008 56363 Injection Completed 10/15/2008 50785 Injection Completed 10/03/2008 77394 Extract 1-10 Completed 10/01/2008 52275 Injection Completed 09/10/2008 94237 Injection Completed 08/27/2008 98465 Injection Completed 08/13/2008 00076 Injection Completed 08/01/2008 96159 Injection Completed 07/18/2008 56840 Injection Completed 07/04/2008 46950 Injection Completed 06/25/2008 83106 Injection Completed 06/13/2008 43144 Injection Completed 05/30/2008 35020 Injection Completed 05/21/2008 04018 Injection Completed 04/25/2008 44582 Extract 1-10 Completed 04/23/2008 93022 Injection Completed 03/26/2008 53961 Injection Completed 02/27/2008 98470 Injection Completed 01/25/2008 56443 Injection Completed 12/26/2007 09220 Injection Completed 12/19/2007 35675 Pulmonary Function Test Completed 11/21/2007 05404 Injection Completed 11/07/2007 68174 Injection Completed 10/24/2007 20242 Injection Completed 10/10/2007 89781 Injection Completed 09/26/2007 25078 Injection Completed 09/14/2007 65629 Injection Completed 08/22/2007 96727 Injection Completed 08/08/2007 16419 Injection Completed 07/27/2007 30581 Injection Completed 06/20/2007 00319 Injection Completed 05/30/2007 43860 Injection Completed 05/09/2007 22265 Injection Completed 05/04/2007 12302 Extract 1-10 Completed 04/25/2007 32023 Injection Completed 03/28/2007 67072 Injection Completed 03/07/2007 84073 Injection Completed 02/09/2007 52867 Injection Completed 01/17/2007 03633 Injection Completed 01/03/2007 96356 Injection Completed 12/22/2006 61403 Injection Completed 12/20/2006 85274 Pulmonary Function Test Completed 12/06/2006 68940 Injection Completed 11/24/2006 22127 Injection Completed 11/08/2006 16768 Injection Completed 10/26/2006 16650 Extract 1-10 Completed 10/25/2006 40551 Injection Completed 10/11/2006 88072 Injection Completed 09/27/2006 02794 Injection Completed 09/13/2006 71621 Injection Completed 08/30/2006 20527 Injection Completed 08/16/2006 82311 Injection Completed 08/02/2006 08422 Injection Completed 07/21/2006 45107 Injection Completed 06/28/2006 33253 Injection Completed 06/14/2006 94595 Injection Completed 05/31/2006 14445 Injection Completed 05/19/2006 27092 Injection Completed 05/10/2006 96317 Extract 1-10 Completed 05/05/2006 97224 Injection Completed 04/19/2006 63437 Injection Completed 03/31/2006 21255 Injection Completed 03/17/2006 68613 Injection Completed 03/03/2006 04684 Injection Completed 02/15/2006 98624 Injection Completed 02/01/2006 46529 Injection Completed 01/25/2006 23968 Injection Completed 01/24/2006 36990 Extract 1-10 Completed 01/06/2006 85223 Injection Completed 12/21/2005 47869 Pulmonary Function Test Completed 11/30/2005 26007 Injection Completed 11/16/2005 13306 Injection Completed 11/04/2005 43881 Injection Completed 10/14/2005 58523 Ippb Completed 09/28/2005 65084 Injection Completed 09/21/2005 79206 Injection Completed 09/07/2005 29714 Injection Completed 08/24/2005 74086 Injection Completed 08/03/2005 99354 Injection Completed 07/13/2005 58804 Injection Completed 07/08/2005 89748 Extract 1-10 Completed 06/24/2005 21749 Injection Completed 06/01/2005 87931 Injection Completed 05/18/2005 27937 Injection Completed 04/20/2005 33716 Injection Completed 03/23/2005 87570 Injection Completed 02/23/2005 33684 Injection Completed 01/19/2005 70519 Injection Completed 12/29/2004 34017 Injection Completed 12/17/2004 91464 Injection Completed 11/26/2004 72869 Injection Completed 11/24/2004 98941 Extract 1-10 Completed 11/12/2004 22999 Injection Completed 10/27/2004 20303 Injection Completed 10/13/2004 61595 Pulmonary Function Test Completed 10/08/2004 88751 Injection Completed 09/24/2004 96674 Injection Completed 09/10/2004 97757 Injection Completed 08/20/2004 37026 Injection Completed 08/06/2004 62136 Injection Completed 07/23/2004 44308 Injection Completed 07/09/2004 37587 Injection Completed 06/25/2004 06430 Injection Completed 06/23/2004 79547 Extract 1-10 Completed 06/11/2004 20236 Injection Completed 05/28/2004 63932 Injection Completed 05/14/2004 13291 Injection Completed 04/30/2004 43718 Injection Completed 04/14/2004 51923 Injection Completed 03/17/2004 66127 Injection Completed 02/18/2004 44758 Injection Completed 01/23/2004 80601 Injection Completed 12/26/2003 66620 Injection Completed 11/28/2003 65520 Injection Completed 11/26/2003 35896 Extract 1-10 Completed 11/12/2003 66590 Injection Completed 10/31/2003 36275 Injection Completed 10/17/2003 36641 Injection Completed 09/26/2003 81727 Injection Completed 09/19/2003 60623 Injection Completed 09/05/2003 30980 Injection Completed 08/27/2003 45808 Pulmonary Function Test Completed 08/22/2003 94004 Injection Completed 08/08/2003 19382 Injection Completed 07/25/2003 96593 Injection Completed 07/11/2003 78322 Injection Completed 07/09/2003 33967 Extract 1-10 Completed 06/27/2003 62301 Injection Completed 06/13/2003 07927 Injection Completed 05/30/2003 90298 Injection Completed 05/16/2003 37013 Injection Completed 04/25/2003 89519 Injection Completed 04/18/2003 66644 Injection Completed 04/04/2003 99058 Injection Completed 03/21/2003 56755 Injection Completed 03/07/2003 51003 Injection Completed 02/21/2003 01788 Injection Completed 02/05/2003 66829 Extract 1-10 Completed 01/29/2003 31223 Injection Completed 01/15/2003 85414 Injection Completed 01/01/2003 93927 Injection Completed 12/20/2002 46280 Injection Completed 12/06/2002 74913 Injection Completed 11/22/2002 85862 Injection Completed 11/08/2002 34997 Injection Completed 10/25/2002 08333 Injection Completed 10/11/2002 58225 Injection Completed 09/25/2002 37701 Injection Completed 09/21/2002 32916 Extract 1-10 Completed 09/06/200264854 Injection Completed Encounters Type Date Location Provider CPT E/M Dx Office Visit 09/28/2017 9:00a [facility] Alba Mcgovern [facility] 56542 J30.89 J30.81 J30.2 J45.40 Office Visit 03/24/2017 3:00p [facility] Haylee Nathan [facility] 54908 J45.40 J30.1 J30.81 J30.89 J30.2 Office Visit 03/15/2017 11:20a [facility] Nancy Yarbrough [facility] 68695 J45.40 J30.1 J30.81 R05 J06.9 Office Visit 02/15/2017 3:00p [facility] Nancy Yarbrough [facility] 66636 J30.1 J45.30 J30.2 Office Visit 01/25/2017 11:40a [facility] Tamanna Chi M.D. 77961 J30.1 J30.2 J30.81 J30.89 J45.30 J01.90 Office Visit 07/28/2016 11:00a [facility] Cristian Abreu M.D. 65363 J30.89 J45.30 Z68.34 Office Visit 08/05/2015 2:40p [facility] Haylee Nathan, [facility] 13837 J45.40 J30.1 J30.81 J30.89 J30.2 Z68.34 Office Visit 02/25/2015 10:20a [facility] Haylee Nathan, [facility] 28303 J45.40 J30.1 J30.2 J30.89 J30.81 Z68.34 Office Visit 03/26/2014 9:20a [facility] Nadine Bowenvirybarber, [address] 477.0 PH.D, [facility] 477.8 493.00 Office Visit 09/18/2013 9:20a [facility] Valeria Duke [facility] 67891 477.0 477.8 493.00 Office Visit 06/12/2013 10:20a [facility] Valeria Duke [facility] 80715 477.8 477.0 493.00 Office Visit 01/23/2013 2:20p [facility] Valeria Leilani [facility] 74700 461.0 Office Visit 07/18/2012 8:40a [facility] Tamanna Chi M.D. 89744 477.0 477.8 477.0 493.00 Office Visit 02/29/2012 10:40a [facility] Oumou Verma, [facility] 17661 784.91 786.2 465.8 Office Visit 01/18/2012 8:54a [facility] Jj Monson M.D. 54689 477.0 477.8 Office Visit 01/28/2011 10:40a [facility] Greyson Flaherty M.D. 91774 477.0 477.8 493.90 Office Visit 11/11/2009 11:00a [facility] Tamanna Chi M.D. 76418 477.0 477.8 493.90 Office Visit 10/14/2005 8:30a [facility] Jj Monson M.D. 35293 477.0 477.8 493.90 Office Visit 02/12/2003 9:00a [facility] Jj Monson M.D. 61031 477.0 477.8 Plan of Care Future Appointment(s):10/11/2017 9:00 am - Allergy Injection at [place] Ohslzl6709/28/2017 - OSCAR Crenshaw-CJ30.89 Other allergic evrdoqpnP60.81 Allergic rhinitis due to animal (cat) (dog) hair and vdhkfyN69.2 Other seasonal allergic ahbiayvdI35.40 Moderate persistent asthma, uncomplicatedRecommendations :Continue all medications as prescribed.Refrain from wearing perfumes/scented colognes while visitingour office. Continue the Fluticasone 2 sprays each nostril daily Continue the Flovent 2 puffs twice a day Continue the Proair 2 puffs every 4 hours for chest congestion, coughing, shortness of breath, or wheezing Monitor Albuterol use. If using more than 2x/week, please call the office as your asthma medications may need to be adjusted. Continue the allergy shots
[2017-10-23 12:28] VITALS: BP 137/57
--- NOTE | 2017-10-23 13:24 | UC ---
Respiratory Complaint HPI - HPI Summary HPI Summary: Cough with temp in the mid s and a headache upon waking today. Pt denies previous lung disease. Is being followed by Dr. Montemayor for CLL, no active treatment right now. Took acetaminophen and temp ad LAY went down. - History of Current Complaint Chief Complaint: UCGeneralIllness Stated Complaint: FEVER,LAY,COUGH Time Seen by Provider: 10/23/17 13:12 Hx Obtained From: Patient Hx Last Menstrual Period: n/a ?: No Onset/Duration: Sudden Onset Timing: Constant Severity Initially: Mild Severity Currently: Mild Pain Intensity: 0 Character: Cough: Productive Aggravating Factors: Nothing Alleviating Factors: OTC Meds Associated Signs And Symptoms: Positive: URI, Nasal Congestion - Allergies/Home Medications Allergies/Adverse Reactions: Allergies Allergy/AdvReac Type Severity Reaction Status Date / Time Adhesive Tape Allergy Intermediate Rash Verified 06/06/16 21:08 amoxicillin Allergy Hives Verified 10/23/17 12:29 Penicillins Allergy Hives Verified 10/23/17 12:29 prednisone Allergy Facial Verified 10/23/17 12:29 Redness/Flushing tetracycline Allergy Headache Verified 10/23/17 12:29 Home Medications: Home Medications Acetaminophen [Acetaminophen Extra Strength] 100 mg PO DAILY 10/23/17 [History Confirmed 10/23/17] Domperidone 10/23/17 [History] PMH/Surg Hx/FS Hx/Imm Hx - Additional Past Medical History Additional PMH: CLL Respiratory History: Asthma - Surgical History Surgical History: Yes Surgery Procedure, Year, and Place: GALLBLADDER 2004--[id number]. right knee surgery- [facility]. x2Abd wall hernia[place], then mesh infection and subsequent removal. Hernia repair Mar 2016. TUBAL LIGATION - Family History Known Family History: Positive: None - Social History Occupation: Retired Lives: With Family Alcohol Use: None Substance Use Type: None Smoking Status (MU): Never Smoked Tobacco - Immunization History Most Recent Influenza Vaccination: 2015 Most Recent Tetanus Shot: UTD Most Recent Pneumonia Vaccination: 11/2013 Review of Systems Constitutional: Chills Skin: Negative Eyes: Negative ENT: Negative Respiratory: Cough Cardiovascular: Negative Gastrointestinal: Negative Genitourinary: Negative Motor: Negative Neurovascular: Negative Musculoskeletal: Negative Neurological: Headache Psychological: Negative Is Patient Immunocompromised?: No All Other Systems Reviewed And Are Negative: Yes Physical Exam Triage Information Reviewed: Yes Appearance: Well-Appearing, No Pain Distress, Well-Nourished Vital Signs: Initial Vital Signs Temp 98.1 F 10/23/17 12:18 Pulse 88 10/23/17 12:18 Resp 18 10/23/17 12:18 BP 137/57 10/23/17 12:18 Pulse Ox 97 10/23/17 12:18 Vital Signs Reviewed: Yes Eye Exam: Normal Eyes: Positive: Conjunctiva Clear ENT Exam: Normal ENT: Positive: Normal ENT inspection, Hearing grossly normal, Pharynx normal, TMs normal Neck exam: Normal Neck: Positive: Supple Respiratory Exam: Normal Respiratory: Positive: Chest non-tender, Lungs clear, Normal breath sounds, No respiratory distress, No accessory muscle use Cardiovascular Exam: Normal Cardiovascular: Positive: RRR, No Murmur Musculoskeletal Exam: Normal Neurological Exam: Normal Neurological: Positive: Alert Psychological Exam: Normal Skin Exam: Normal UC Diagnostic Evaluation - Laboratory O2 Sat by Pulse Oximetry: 97 Respiratory Course/Dx - Course Course Of Treatment: Stressed the likelihood that this is a viral infection, should resolve on its own. But she should have recheck with Dr. Barrett this week to make sure she is improving. - Differential Dx/Diagnosis Provider Diagnoses: URI, likely viral Discharge - Sign-Out/Discharge Documenting (check all that apply): Patient Departure All imaging exams completed and their final reports reviewed: No Studies - Discharge Plan Condition: Stable Disposition: HOME Patient Education Materials: Upper Respiratory Infection (ED) Referrals: Jonh Gallardo MD [Primary Care Provider] - 4 Days Additional Instructions: UPPER RESPIRATORY ILLNESS: You have a viral infection of the respiratory passages -- a "cold." This common infection causes nasal congestion, drainage, and often sore throat and cough. It is highly contagious. The disease usually worsens for 3-5 days, then resolves after about 10 to 14 days. It is very common to have some residual cough or nasal congestion for another week or so. There is no "cure" for the viral infection -- it must run its course. If there is a complication, such as bacterial infection in the nose, sinuses, middle ear, or bronchial tubes, antibiotics may be required. The antibiotics won't affect the virus. Drink plenty of fluids. A humidifier may help. An expectorant medication or decongestant may make you more comfortable. Use acetaminophen or ibuprofen for fever or aches. Please call or return if you develop difficulty breathing, fever over 100F , sudden worsening, or failure to improve at all for 4 or more days. [id number] MEDICINES ARE ONLY INTENDED TO GIVE TEMPORARY RELIEF. YOU SHOULD STOP TAKING ANY COUGH OR COLD PREPARATION THAT FAILS TO MAKE YOU FEEL AT LEAST A LITTLE BIT BETTER. - Billing Disposition and Condition Condition: STABLE Disposition: Home
== END 2017-10-23 13:35 | disposition home or self-care (01) ==
LOC: UCCORT 11:41
CPT/HCPCS: 99212; G0463

== ENCOUNTER 2017-11-03 15:31 | Emergency (ER) | payer MEDICARE ==
[2017-11-03 15:37] VITALS: BP 176/86
--- OUTSIDE RECORDS SUMMARY | 2017-11-03 15:44 | XMS REPORT ---
:1940 External Reference #:[id number] Author Organization [facility] Address [address] [place] [address] Phone [phone] Care Team Providers Name Role Phone Jonh Gallardo M.D. Primary Care Physician Unavailable Payers Type Date Identification Numbers Payment Provider Subscriber Medicare Primary Effective: Policy Number: Medicare-National Mariangel Oviedo 2006 [id number] PayID: [id number] [address] [place] [address] Medigap Part B Effective: Policy Number: Aarp United Mariangel Oviedo 2014 [id number] Healthcare Group Name: Medicare Supplement Plan [facility] PayID: [id number] [address] [place] [address] Medigap Part B Effective: 2009 Policy Number: [id number] Anabell Oviedo Expires: 2014 [facility] [address] [place] [address] Problems Date Description Provider Status Onset: 03/15/2017 Uncomplicated moderate persistent LORI EncarnacionC Active asthma Onset: 07/28/2016 Mild persistent asthma Cristian Abreu M.D. Active Onset: 07/28/2016 Body mass index 30+ - obesity Cristian Abreu M.D. 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 PROJECT ACCOUNTANT-C pre-exerci se 2 puffs Flovent HFA 02/25/ Active Aerosol 110mcg/Act 1units inhale 2 J45.40 Alba 2016 puffs by Uldrich, mouth PROJECT ACCOUNTANT-C twice a day Omeprazole / Active Capsules DR 40mg once a day Unknown 0000 Sucralfate / Active Tablets 1gm once a day Unknown 0000 Vitamin B12 / Active Tablets 100mcg once a day Unknown 0000 Fish Oil / Active Capsules 600mg once a day Unknown 0000 Nystatin / Active Cream [id number] Morgan To Unknown 0000 /GM Affected Areas Under Breasts tid prn Metamucil / Active Packet 51.7% once a Unknown Fiber 0000 day. Domperidone / Active 10mg once a day Unknown 0000 Fluticasone / Active Suspension 50mcg/Act 16unit 1 spray in Alba Propionate 0000 s each Uldrich, nostril PROJECT ACCOUNTANT-C twice daily Vitamin D3 / Active Capsules 1000Unit 1 by mouth Unknown 0000 every day Vitamin C TR / Active Tablets ER 1000mg 1 by mouth Unknown 0000 every day Medications Administered in Office Medication Date Status Form Strength Qnty SIG Indications Ordering Provider Injection 10/11/ Administered Injection Allergy 2018 Injection Injection 09/28/ Administered Injection Allergy 2018 Injection Injection 09/07/ Administered Injection Allergy 2018 Injection Injection 08/23/ Administered Injection Allergy 2018 Injection Injection 08/09/ Administered Injection Cristian Abreu M.D. Injection 08/09/ Administered Injection Allergy 2018 Injection Injection 07/26/ Administered Injection Allergy 2018 Injection Injection 07/05/ Administered Injection Allergy 2018 Injection Injection 06/21/ Administered Injection Allergy 2018 Injection Injection 05/ Administered Injection Allergy 2018 Injection Injection 05/26/ Administered Injection Allergy 2018 Injection Injection 04/19/ Administered Injection Allergy 2018 Injection Injection 03/24/ Administered Injection Allergy 2018 Injection Injection 02/15/ Administered Injection Allergy 2018 Injection Injection 01/13/ Administered Injection Allergy 2017 Injection Injection 12/14/ Administered Injection Allergy 2017 Injection Injection 11/30/ Administered Injection Allergy 2017 Injection Injection 11/09/ Administered Injection Allergy 2017 Injection Injection 10/26/ Administered Injection Allergy 2017 Injection Injection 10/05/ Administered Injection Allergy 2017 Injection Injection 09/21/ Administered Injection Allergy 2017 Injection Injection 09/07/ Administered Injection Allergy 2017 Injection Injection 08/26/ Administered Injection Allergy 2016 Injection Injection 08/12/ Administered Injection Allergy 2016 Injection Injection 06/21/ Administered Injection Allergy 2017 Injection Injection 06/08/ Administered Injection Allergy 2017 Injection Injection 05/30/ Administered Injection Cristian WNito 2016 Deisy Abreu Injection 05/30/ Administered Injection Allergy 2016 Injection Injection 05/16/ Administered Injection Allergy 2017 Injection Injection 05/02/ Administered Injection Allergy 2017 Injection Injection 04/18/ Administered Injection Allergy 2017 Injection Injection 04/06/ Administered Injection Allergy 2017 Injection Injection 03/07/ Administered Injection Allergy 2016 Injection Injection 01/31/ Administered Injection Cristian WNito 2016 Deisy Abreu Injection 01/31/ Administered Injection Allergy 2016 Injection Injection 01/05/ Administered Injection Allergy 2016 Injection Injection 12/01/ Administered Injection Allergy 2016 Injection Injection 11/15/ Administered Injection Allergy 2015 Injection Injection 10/20/ Administered Injection Allergy 2015 Injection Injection 10/04/ Administered Injection Allergy 2016 Injection Injection 09/20/ Administered Injection Allergy 2015 Injection Injection 08/30/ Administered Injection Allergy 2015 Injection Injection 08/09/ Administered Injection Allergy 2016 Injection Injection 07/19/ Administered Injection Allergy 2016 Injection Injection 06/28/ Administered Injection Allergy 2016 Injection Injection 06/14/ Administered Injection Allergy 2016 Injection Injection 06/02/ Administered Injection Allergy 2016 Injection Injection 05/17/ Administered Injection Allergy 2016 Injection Injection 04/26/ Administered Injection Allergy 2016 Injection Injection 04/12/ Administered Injection Allergy 2016 Injection Injection 02/18/ Administered Injection Allergy 2016 Injection Injection 01/19/ Administered Injection Allergy 2016 [...] 2015 Injection Injection 06/04/ Administered Injection Allergy 2014 Injection Injection 05/19/ Administered Injection Allergy 2015 Injection Injection 05/05/ Administered Injection Allergy 2015 Injection Injection 04/28/ Administered Injection Allergy 2015 Injection Injection 03/17/ Administered Injection Allergy 2015 Injection Injection 02/10/ Administered Injection Allergy 2015 Injection Injection 01/06/ Administered Injection Allergy 2015 Injection Injection 12/02/ Administered Injection Allergy 2013 Injection Injection 11/04/ Administered Injection Allergy 2014 Injection Injection 10/21/ Administered Injection Jj Monson M.D. Injection 10// Administered Injection Allergy 2013 Injection Injection 11/13/ Administered Injection Jj 2013 Deisy Monson Injection 11/13/ Administered Injection Allergy 2013 Injection Injection 10/23/ Administered Injection Jj 2013 Deisy Monson Injection 10/23/ Administered Injection Allergy 2013 Injection Injection 10/09/ Administered Injection Jj 2013 Deisy Monson Injection 10/09/ Administered Injection Allergy 2013 Injection Injection 09/25/ Administered Injection Allergy 2013 Injection Injection 09/11/ Administered Injection Jj 2013 Deisy Monson Injection // Administered Injection Allergy 2013 Injection Injection 08/28/ Administered Injection Jj 2013 Deisy Monson Injection 08/28/ Administered Injection Allergy 2013 Injection Injection 08/14/ Administered Injection Jj 2013 Deisy Monson Injection 08/14/ Administered Injection Allergy 2013 Injection Injection 07/31/ Administered Injection Allergy 2013 Injection Injection 06/ Administered Injection Allergy 2013 Injection Injection 06/26/ Administered Injection Jj 2013 Deisy Monson Injection 06/26/ Administered Injection Allergy 2013 Injection Injection 05// Administered Injection Jj 2013 Deisy Monson Injection 05// Administered Injection Allergy 2013 Injection Injection 05/29/ [...] Administered Injection Jj 2013 Deisy Monson Injection 02/08/ Administered Injection Allergy 2013 Injection Injection 12/26/ Administered Injection Jj 2012 Deisy Monson Injection 12/26/ Administered Injection Allergy 2012 Injection Injection 11/30/ Administered Injection Jj 2012 Deisy Monson Injection 11/30/ Administered Injection Allergy 2012 Injection Injection 10/24/ Administered Injection Allergy 2012 Injection Injection // Administered Injection Jj 2012 Deisy Monson Injection // Administered Injection Allergy 2012 Injection Injection 09/26/ Administered Injection Jj 2012 Deisy Monson Injection 09/26/ Administered Injection Allergy 2012 Injection Injection 09/12/ Administered Injection Jj 2012 Deisy Monson Injection 09/12/ Administered Injection Allergy 2012 Injection Injection 08/29/ Administered Injection Jj 2012 Deisy Monson Injection 08/29/ Administered Injection Allergy 2012 Injection Injection 08/03/ Administered Injection Jj 2012 Deisy Monson Injection 08/03/ Administered Injection Allergy 2012 Injection Injection 07/18/ Administered Injection Tamanna M 2012 Deisy Chi Injection 07/18/ Administered Injection Jj 2012 Deisy Monson Injection [...] Celestone/Cor 05/03/ Administered Injection Jj tisone 2011 Ermias [id number] 1 M.DNito cc Injection 04/19/ Administered Injection [...] 06/18/ Administered Injection Jj tisone 2010 Ermias [id number] 1 M.D. cc Injection 06/02/ Administered Injection Jj 2010 Deisy Monson Injection 05/19/ Administered Injection Jj 2010 Deisy Monson Injection 05/05/ Administered Injection Jj 2010 Deisy Monson Injection 04/21/ Administered Injection Jj 2010 Deisy Monson Injection 03/19/ Administered Injection Jj 2010 Deisy Monson Injection 02/12/ Administered Injection Jj 2010 Deisy Monson Injection 01/20/ Administered Injection Jj 2009 Deisy Monson Injection 12/25/ Administered Injection Jj 2009 [...] Deisy Monson Injection 10/01/ Administered Injection Jj 2009 Deisy Monson Injection 09/10/ Administered Injection Jj 2009 Deisy Monson Injection 08/27/ Administered Injection Jj 2009 Deisy Monson Injection 08/13/ Administered Injection Jj 2008 Deisy Monson Injection 08/01/ Administered Injection Jj 2009 Deisy Monson Injection 07/18/ Administered Injection Jj 2008 Deisy Monson Injection 07/04/ Administered Injection Jj 2009 Deisy Monson Injection 06/25/ Administered Injection Jj 2009 Deisy Monson Injection 06/13/ Administered Injection Jj 2008 Deisy Monson Injection 05/30/ Administered Injection Jj 2008 Deisy Monson Injection 05/21/ Administered Injection Jj 2008 Deisy Monson Injection 04/23/ Administered Injection Jj 2009 Deisy Monson Injection 03/26/ Administered Injection Jj 2008 Deisy Monson Injection 02/26/ Administered Injection Jj 2008 Deisy Monson Injection 01/24/ Administered Injection Jj 2007 Deisy Monson Injection 12/25/ Administered Injection Jj 2007 Deisy Monson Injection 11/20/ Administered Injection Jj 2007 Diesy Monson Injection 11/06/ Administered Injection Jj 2007 [...] Deisy Monson Injection 03/07/ Administered Injection Jj 2007 Deisy Monson Injection 02/09/ Administered Injection Jj 2007 Deisy Monson Injection 01/17/ Administered Injection Jj 2006 Deisy Monson Injection 01/03/ Administered Injection Jj 2006 Deisy Monson Injection 12/22/ Administered Injection Jj 2007 Deisy Monson Injection 12/06/ Administered Injection Jj 2006 Deisy Monson Injection 11/24/ Administered Injection Jj 2006 Deisy Monson Injection 11/08/ Administered Injection Jj 2006 Deisy Monson Injection 10/25/ Administered Injection Jj 2006 Deisy Monson Injection 10/11/ Administered Injection Jj 2007 Deisy Monson Injection 09/27/ Administered Injection Jj 2007 Deisy Monson Injection 09/13/ Administered Injection Jj 2007 Deisy Monson Injection 08/30/ Administered Injection Jj 2007 Deisy Monson Injection 08/16/ Administered Injection Jj [...] Monson Injection 11/04/ Administered Injection Jj 2006 eDisy Monson Injection 09/28/ Administered Injection Jj 2006 [...] Deisy Monson Injection 12/29/ Administered Injection Jj 2004 Deisy Monson Injection 12/17/ Administered Injection Jj 2004 Deisy Monson Injection 11/26/ Administered Injection Jj 2004 Deisy Monson Injection 11/12/ Administered Injection Jj 2004 Deisy Monson Injection 10/27/ Administered Injection Jj 2004 Deisy Monson Injection 10/08/ Administered Injection Jj 2004 Deisy Monson Injection 09/24/ Administered Injection Jj 2005 Deisy Monson Injection 09/10/ Administered Injection Jj 2005 Deisy Monson Injection 08/20/ Administered Injection Jj 2005 Deisy Monson Injection 08/06/ Administered Injection Jj 2005 Deisy Monson Injection 07/23/ Administered Injection Jj 2005 Josefina MonsonDNito Injection 07/09/ Administered Injection Jj 2005 Josefina MonsonDNito Injection 06/25/ Administered Injection Jj 2005 Josefina MonsonDNito Injection 06/11/ Administered Injection Jj 2005 Deisy Monson Injection 05/28/ Administered Injection Jj 2005 Deisy Monson Injection 05/14/ Administered Injection Jj 2005 Josefina MnosonDNito Injection 04/30/ Administered Injection Jj 2005 Josefina MonsonDNito Injection 04/14/ Administered Injection Jj 2005 Josefina MonsonDNito Injection 03/17/ Administered Injection Jj 2005 Deisy Monson Injection 02/17/ Administered Injection Jj 2005 Deisy Monson Injection 01/22/ Administered Injection Jj 2003 Deisy Monson Injection 12/25/ Administered Injection Jj 2003 Deisy Monson Injection 11/27/ Administered Injection Jj 2003 Deisy Monson Injection 11/11/ Administered Injection Jj 2004 Deisy Monson Injection 10/30/ Administered Injection Jj 2003 Deisy Monson Injection 10/16/ Administered Injection Jj 2004 Josefina MonsonDNito Injection 09/25/ Administered Injection Jj 2003 Deisy Monson Injection 09/18/ Administered Injection Jj 2003 Deisy Monosn Injection 09/04/ Administered Injection Jj 2003 Deisy Monson Injection 08/21/ Administered Injection Jj 2003 Deisy Monson Injection 08/07/ Administered Injection Jj 2003 Josefina MonsonDNito Injection 07/24/ Administered Injection Jj 2004 Josefina MonsonDNito Injection 07/10/ Administered Injection Jj 2004 Josefina MonsonDNito Injection 06/26/ Administered Injection Jj 2004 Josefina MonsonDNito Injection 06/12/ Administered Injection Jj 2004 Deisy Monson Injection 05/29/ Administered Injection Jj 2004 Chiquis Monson.D. Injection 05/15/ Administered Injection Jj 2004 Deisy Monson Injection 04/24/ Administered Injection Jj 2003 Deisy Monson Injection 04/17/ Administered Injection Jj 2003 Deisy Monson Injection 04/04/ Administered Injection Jj 2003 Deisy Monson Injection 03/21/ Administered Injection Jj 2003 Deisy Monson Injection 03/07/ Administered Injection Jj 2003 Deisy Monson Injection 02/21/ Administered Injection Jj 2003 Deisy Monson Injection 01/29/ Administered Injection Jj [...] CPT Code Status Date Vaccine Lot # [id number] Given Unknown Pneumococcal Vaccine 03275 Given Unknown Pneumococcal Vaccine 29564 Given Unknown Pneumococcal Vaccine 61996 Given Unknown Influenza Vaccine 55019 Given Unknown Influenza Vaccine 86365 Given Unknown Influenza Vaccine Vital Signs Date Vital Result Comment 11/01/2017 Height 62 inches 5'2" Weight 195.00 lb Weight in kg's 88.452 Respiratory Rate 20 /min Heart Rate 97 /min 99 first take Body Temperature 100.0 F O2 % BldC Oximetry 95 % BP Systolic 138 mmHg 163/87 first BP Diastolic 76 mmHg 163/87 first Asthma Control Test 17 BMI (Body Mass Index) 35.7 kg/m2 09/28/2017 Height 62 inches 5'2" Weight 194.00 [...] Information Procedures Date CPT Code Description Status 11/01/2017 64125 Ippb Completed 10/11/2017 05461 Injection Completed 10/03/2017 93933 Extract 1-10 Completed 10/03/2017 09088 Extract 1-10 Completed 09/28/2017 82915 Injection Completed 09/28/2017 76857 Pre PFT Completed 09/07/2017 40725 Injection Completed 08/23/2017 17313 Injection Completed 08/09/2017 74634 Injection Completed 08/09/2017 77395 Injection Completed 07/26/2017 94196 Injection Completed 07/05/2017 95907 Injection Completed 06/21/2017 52906 Injection Completed 06/09/2017 30980 Injection Completed 05/26/2017 48416 Injection Completed 04/19/2017 66823 Injection Completed 03/24/2017 99830 Injection Completed 03/15/2017 33291 Ippb Completed 03/15/2017 42446 Pre PFT Completed 02/15/2017 92989 Injection Completed 02/15/2017 46085 Pre PFT Completed 01/13/2017 43183 Injection Completed 12/17/2016 20287 Extract 1-10 Completed 12/14/2016 36077 Injection Completed 11/30/2016 61636 Injection Completed 11/09/2016 93561 Injection Completed 10/26/2016 47819 Injection Completed 10/05/2016 58344 Injection Completed 09/21/2016 77330 Injection Completed 09/07/2016 93377 Injection Completed 08/26/2016 86111 Injection Completed 08/12/2016 24515 Injection Completed 07/28/2016 71829 Injection Completed 07/28/2016 15675 Pre PFT Completed 07/22/2016 17375 Extract 1-10 Completed 07/15/2016 74874 Injection Completed 07/06/2016 88645 Injection Completed 07/06/2016 90277 Injection Completed 06/22/2016 78406 Injection Completed 06/08/2016 13421 Injection Completed 05/25/2016 90453 Injection Completed 05/13/2016 64351 Injection Completed 04/13/2016 51828 Injection Completed 03/09/2016 99680 Injection Completed 03/09/2016 58286 Injection Completed 02/12/2016 74507 Injection Completed 01/08/2016 74566 Injection Completed 12/23/2015 97308 Injection Completed 11/27/2015 25588 Injection Completed 11/12/2015 00391 Extract 1-10 Completed 11/11/2015 65956 Injection Completed 10/28/2015 40091 Injection Completed 10/07/2015 39509 Injection Completed 09/16/2015 77855 Injection Completed 08/26/2015 09336 Injection Completed 08/05/2015 46567 Injection Completed 08/05/2015 59395 Pre PFT Completed 07/22/2015 77923 Injection Completed 07/10/2015 27053 Injection Completed 06/24/2015 01574 Injection Completed 06/03/2015 29105 Injection Completed 05/20/2015 40122 Injection Completed 04/16/2015 52715 Extract 1-10 Completed 03/27/2015 45561 Injection Completed 02/25/2015 27216 Injection Completed 02/25/2015 60259 Pre PFT Completed 01/28/2015 47609 Injection Completed 12/31/2014 10755 Injection Completed 12/24/2014 83347 Injection Completed 12/17/2014 57756 Injection Completed 12/10/2014 51205 Injection Completed 12/05/2014 44054 Injection Completed 11/12/2014 89508 Injection Completed 10/22/2014 88629 Injection Completed 09/24/2014 71343 Injection Completed 07/30/2014 44521 Injection Completed 07/11/2014 41285 Injection Completed 07/03/2014 87376 Extract 1-10 Completed 06/25/2014 87844 Injection Completed 06/11/2014 30250 Injection Completed 06/04/2014 22588 Injection Completed 04/23/2014 08276 Injection Completed 03/26/2014 41161 Pre PFT Completed 03/19/2014 88878 Injection Completed 02/12/2014 96418 Injection Completed 01/08/2014 69841 Injection Completed 12/11/2013 99095 Injection Completed 11/27/2013 59658 Injection Completed 11/27/2013 73964 Injection Completed 11/13/2013 47470 Injection Completed 11/13/2013 79662 Injection Completed 10/23/2013 33737 Injection Completed 10/23/2013 92515 Injection Completed 10/18/2013 15649 Extract 1-10 Completed 10/09/2013 63357 Injection Completed 10/09/2013 24479 Injection Completed 09/25/2013 54547 Injection Completed 09/18/2013 02184 Pre PFT Completed 09/18/2013 53228 Pre PFT Completed 09/11/2013 80902 Injection Completed 09/11/2013 33109 Injection Completed 08/28/2013 01968 Injection Completed 08/28/2013 25408 Injection Completed 08/14/2013 38817 Injection Completed 08/14/2013 83186 Injection Completed 07/31/2013 92605 Injection Completed 07/17/2013 33689 Injection Completed 06/26/2013 51819 Injection Completed 06/26/2013 29487 Injection Completed 06/12/2013 35915 Injection Completed 06/12/2013 82720 Injection Completed 06/12/2013 72232 Pre PFT Completed 05/29/2013 89422 Injection Completed 05/29/2013 08538 Injection Completed 05/01/2013 07756 Injection Completed 05/01/2013 10185 Injection Completed 04/05/2013 20676 Injection Completed 03/08/2013 19673 Injection Completed 03/08/2013 32900 Injection Completed 02/08/2013 45864 Injection Completed 02/08/2013 61180 Injection Completed 01/23/2013 55333 Oxygen Level - Pulse Oximiter Completed 01/01/2013 72640 Extract 1-10 Completed 12/26/2012 00160 Injection Completed 12/26/2012 08663 Injection Completed 11/30/2012 89455 Injection Completed 11/30/2012 05207 Injection Completed 10/24/2012 89179 Injection Completed 10/12/2012 40627 Injection Completed 10/12/2012 62066 Injection Completed 09/26/2012 55435 Injection Completed 09/26/2012 56170 Injection Completed 09/12/2012 04465 Injection Completed 09/12/2012 49402 Injection Completed 08/29/2012 97452 Injection Completed 08/29/2012 29045 Injection Completed 08/03/2012 49883 Injection Completed 08/03/2012 03961 Injection Completed 07/18/2012 52327 Pulmonary Function Test Completed 07/18/2012 98543 Oxygen Level - Pulse Oximiter Completed 07/18/2012 08249 Injection Completed 07/18/2012 03048 Injection Completed 07/18/2012 20056 Injection Completed 07/04/2012 39461 Injection Completed 07/04/2012 91439 Injection Completed 06/20/2012 89980 Injection Completed 06/20/2012 48498 Injection Completed 06/06/2012 43307 Injection Completed 06/06/2012 14812 Injection Completed 05/26/2012 83616 Extract 1-10 Completed 05/23/2012 83907 Injection Completed 05/23/2012 25463 Injection Completed 05/09/2012 23865 Injection Completed 05/09/2012 76995 Injection Completed 04/18/2012 99885 Injection Completed 03/21/2012 15024 Injection Completed 02/22/2012 43401 Injection Completed 01/18/2012 02194 Injection Completed 11/23/2011 03819 Injection Completed 11/02/2011 84881 Injection Completed 10/19/2011 85201 Injection Completed 09/28/2011 39457 Injection Completed 09/14/2011 26851 Injection Completed 08/31/2011 40333 Injection Completed 08/26/2011 24219 Extract 1-10 Completed 08/17/2011 88018 Injection Completed 08/03/2011 32072 Injection Completed 07/22/2011 59771 Injection Completed 07/06/2011 78373 Injection Completed 07/06/2011 92182 Pulmonary Function Test Completed 06/24/2011 36206 Injection Completed 06/08/2011 50932 Injection Completed 05/27/2011 26035 Injection Completed 05/11/2011 78366 Injection Completed 04/20/2011 40796 Injection Completed 04/06/2011 58537 Injection Completed 03/09/2011 02456 Injection Completed 02/11/2011 05609 Extract 1-10 Completed 02/09/2011 70652 Injection Completed 01/12/2011 53721 Injection Completed 12/17/2010 24863 Injection Completed 11/26/2010 90310 Injection Completed 11/10/2010 23433 Injection Completed 10/27/2010 41174 Injection Completed 10/13/2010 42687 Injection Completed 09/22/2010 68428 Injection Completed 09/22/2010 75438 Pulmonary Function Test Completed 09/10/2010 58638 Injection Completed 08/25/2010 67127 Injection Completed 08/11/2010 29033 Extract 1-10 Completed 08/11/2010 38108 Injection Completed 07/28/2010 25650 Injection Completed 06/25/2010 21119 Injection Completed 06/18/2010 05195 Pulmonary Function Test Completed 06/02/2010 62161 Injection Completed 05/19/2010 71380 Injection Completed 05/05/2010 13996 Injection Completed 04/21/2010 65755 Injection Completed 03/19/2010 01504 Injection Completed 02/12/2010 93226 Injection Completed 01/20/2010 91798 Injection Completed 12/25/2009 61936 Injection Completed 11/27/2009 51222 Injection Completed 11/27/2009 87899 Pulmonary Function Test Completed 11/13/2009 96879 Extract 1-10 Completed 11/11/2009 10602 Injection Completed 10/28/2009 97262 Injection Completed 10/16/2009 37561 Injection Completed 09/30/2009 99689 Injection Completed 09/16/2009 05052 Injection Completed 08/26/2009 26618 Injection Completed 08/12/2009 79057 Injection Completed 07/22/2009 82570 Injection Completed 07/01/2009 46299 Injection Completed 06/17/2009 78207 Injection Completed 06/05/2009 12528 Extract 1-10 Completed 06/03/2009 87004 Injection Completed 05/20/2009 69302 Injection Completed 05/06/2009 75786 Injection Completed 04/08/2009 90866 Injection Completed 03/11/2009 20399 Injection Completed 02/11/2009 05194 Injection Completed 01/16/2009 87790 Injection Completed 12/17/2008 19929 Injection Completed 12/05/2008 53923 Pulmonary Function Test Completed 11/19/2008 49152 Injection Completed 10/29/2008 35875 Injection Completed 10/15/2008 86337 Injection Completed 10/03/2008 37470 Extract 1-10 Completed 10/01/2008 46664 Injection Completed 09/10/2008 12449 Injection Completed 08/27/2008 06217 Injection Completed 08/13/2008 85609 Injection Completed 08/01/2008 16649 Injection Completed 07/18/2008 28437 Injection Completed 07/04/2008 72781 Injection Completed 06/25/2008 16784 Injection Completed 06/13/2008 51623 Injection Completed 05/30/2008 08417 Injection Completed 05/21/2008 11647 Injection Completed 04/25/2008 16536 Extract 1-10 Completed 04/23/2008 45143 Injection Completed 03/26/2008 45153 Injection Completed 02/27/2008 83042 Injection Completed 01/25/2008 38806 Injection Completed 12/26/2007 09656 Injection Completed 12/19/2007 12445 Pulmonary Function Test Completed 11/21/2007 08941 Injection Completed 11/07/2007 76122 Injection Completed 10/24/2007 98820 Injection Completed 10/10/2007 06823 Injection Completed 09/26/2007 07355 Injection Completed 09/14/2007 24143 Injection Completed 08/22/2007 30569 Injection Completed 08/08/2007 71821 Injection Completed 07/27/2007 51893 Injection Completed 06/20/2007 21260 Injection Completed 05/30/2007 77115 Injection Completed 05/09/2007 10261 Injection Completed 05/04/2007 56000 Extract 1-10 Completed 04/25/2007 33378 Injection Completed 03/28/2007 29513 Injection Completed 03/07/2007 05015 Injection Completed 02/09/2007 70748 Injection Completed 01/17/2007 10064 Injection Completed 01/03/2007 13788 Injection Completed 12/22/2006 96242 Injection Completed 12/20/2006 52007 Pulmonary Function Test Completed 12/06/2006 88970 Injection Completed 11/24/2006 35052 Injection Completed 11/08/2006 58290 Injection Completed 10/26/2006 51133 Extract 1-10 Completed 10/25/2006 48435 Injection Completed 10/11/2006 67252 Injection Completed 09/27/2006 47157 Injection Completed 09/13/2006 77391 Injection Completed 08/30/2006 67290 Injection Completed 08/16/2006 55340 Injection Completed 08/02/2006 78987 Injection Completed 07/21/2006 42338 Injection Completed 06/28/2006 16123 Injection Completed 06/14/2006 41693 Injection Completed 05/31/2006 89471 Injection Completed 05/19/2006 70667 Injection Completed 05/10/2006 21019 Extract 1-10 Completed 05/05/2006 00531 Injection Completed 04/19/2006 86030 Injection Completed 03/31/2006 36454 Injection Completed 03/17/2006 02420 Injection Completed 03/03/2006 25329 Injection Completed 02/15/2006 45170 Injection Completed 02/01/2006 57497 Injection Completed 01/25/2006 89894 Injection Completed 01/24/2006 18830 Extract 1-10 Completed 01/06/2006 79430 Injection Completed 12/21/2005 43390 Pulmonary Function Test Completed 11/30/2005 01823 Injection Completed 11/16/2005 88753 Injection Completed 11/04/2005 67563 Injection Completed 10/14/2005 89254 Ippb Completed 09/28/2005 10717 Injection Completed 09/21/2005 28795 Injection Completed 09/07/2005 30502 Injection Completed 08/24/2005 77064 Injection Completed 08/03/2005 21203 Injection Completed 07/13/2005 10857 Injection Completed 07/08/2005 37374 Extract 1-10 Completed 06/24/2005 76017 Injection Completed 06/01/2005 50661 Injection Completed 05/18/2005 27026 Injection Completed 04/20/2005 53992 Injection Completed 03/23/2005 34060 Injection Completed 02/23/2005 58827 Injection Completed 01/19/2005 81195 Injection Completed 12/29/2004 56519 Injection Completed 12/17/2004 25144 Injection Completed 11/26/2004 07780 Injection Completed 11/24/2004 39908 Extract 1-10 Completed 11/12/2004 62502 Injection Completed 10/27/2004 86238 Injection Completed 10/13/2004 48051 Pulmonary Function Test Completed 10/08/2004 75948 Injection Completed 09/24/2004 11284 Injection Completed 09/10/2004 39189 Injection Completed 08/20/2004 84570 Injection Completed 08/06/2004 62608 Injection Completed 07/23/2004 22292 Injection Completed 07/09/2004 79792 Injection Completed 06/25/2004 10096 Injection Completed 06/23/2004 28249 Extract 1-10 Completed 06/11/2004 06460 Injection Completed 05/28/2004 55096 Injection Completed 05/14/2004 79385 Injection Completed 04/30/2004 50436 Injection Completed 04/14/2004 16734 Injection Completed 03/17/2004 22042 Injection Completed 02/18/2004 04468 Injection Completed 01/23/2004 74197 Injection Completed 12/26/2003 63480 Injection Completed 11/28/2003 52657 Injection Completed 11/26/2003 17395 Extract 1-10 Completed 11/12/2003 27559 Injection Completed 10/31/2003 12714 Injection Completed 10/17/2003 76781 Injection Completed 09/26/2003 38192 Injection Completed 09/19/2003 05941 Injection Completed 09/05/2003 09502 Injection Completed 08/27/2003 07264 Pulmonary Function Test Completed 08/22/2003 61177 Injection Completed 08/08/2003 88198 Injection Completed 07/25/2003 07607 Injection Completed 07/11/2003 25039 Injection Completed 07/09/2003 36512 Extract 1-10 Completed 06/27/2003 13864 Injection Completed 06/13/2003 17611 Injection Completed 05/30/2003 38694 Injection Completed 05/16/2003 71360 Injection Completed 04/25/2003 45614 Injection Completed 04/18/2003 11985 Injection Completed 04/04/2003 39207 Injection Completed 03/21/2003 00917 Injection Completed 03/07/2003 99527 Injection Completed 02/21/2003 28387 Injection Completed 02/05/2003 99793 Extract 1-10 Completed 01/29/2003 65411 Injection Completed 01/15/2003 33419 Injection Completed 01/01/2003 63414 Injection Completed 12/20/2002 31910 Injection Completed 12/06/2002 68903 Injection Completed 11/22/2002 76964 Injection Completed 11/08/2002 30358 Injection Completed 10/25/2002 42792 Injection Completed 10/11/2002 03187 Injection Completed 09/25/2002 51830 Injection Completed 09/21/2002 23767 Extract 1-10 Completed 09/06/2002 15034 Injection Completed Encounters Type Date Location Provider CPT E/M Dx Office Visit 11/01/2017 4:20p [facility] ANTONIA Crenshaw 22434 Z23 J45.41 J30.81 J30.1 Office Visit 09/28/2017 9:00a [facility] Alba Mcgovern, [facility] 48998 J30.89 J30.81 J30.2 J45.40 Office Visit 03/24/2017 3:00p [facility] Haylee Nathan [facility] 82928 J45.40 J30.1 J30.81 J30.89 J30.2 Office Visit 03/15/2017 11:20a [facility] Nancy Yarbrough [facility] 44122 J45.40 J30.1 J30.81 R05 J06.9 Office Visit 02/15/2017 3:00p [facility] Nancy Yarbrough [facility] 76989 J30.1 J45.30 J30.2 Office Visit 01/25/2017 11:40a [facility] Tamanna Chi M.D. 45706 J30.1 J30.2 J30.81 J30.89 J45.30 J01.90 Office Visit 07/28/2016 11:00a [facility] Cristian Abreu M.D. 34105 J30.89 J45.30 Z68.34 Office Visit 08/05/2015 2:40p [facility] Haylee Nathan [facility] 48482 J45.40 J30.1 J30.81 J30.89 J30.2 Z68.34 Office Visit 02/25/2015 10:20a [facility] Haylee Nathan [facility] 16513 J45.40 J30.1 J30.2 J30.89 J30.81 Z68.34 Office Visit 03/26/2014 9:20a [facility] Nadine Hernandez, 04807 477.0 PH.D, RPA-C 477.8 493.00 Office Visit 09/18/2013 9:20a [facility] Valeria Duke [facility] 97998 477.0 477.8 493.00 Office Visit 06/12/2013 10:20a [facility] Valeria Duke [facility] 11199 477.8 477.0 493.00 Office Visit 01/23/2013 2:20p [facility] Valeria Duke, PROJECT ACCOUNTANTShantelBC 76011 461.0 Office Visit 07/18/2012 8:40a [facility] Tamanna Chi M.D. 18032 477.0 477.8 477.0 493.00 Office Visit 02/29/2012 10:40a [facility] Oumou VermaLIZZYP-C 18388 784.91 786.2 465.8 Office Visit 01/18/2012 8:54a [facility] Jj Monson M.D. 55734 477.0 477.8 Office Visit 01/28/2011 10:40a [facility] Greyson Flaherty M.D. 90825 477.0 477.8 493.90 Office Visit 11/11/2009 11:00a [facility] Tamanna Chi M.D. 63111 477.0 477.8 493.90 Office Visit 10/14/2005 8:30a [facility] Jj Monson M.D. 50905 477.0 477.8 493.90 Office Visit 02/12/2003 9:00a [facility] Jj Monson M.D. 57453 477.0 477.8 Plan of Care 11/01/2017 - OSCAR Crenshaw-CZ23 Encounter for ivrkjxpfaqnoD87.41 Moderate persistent asthma with (acute) sxipzpjorkvrT16.81 Allergic rhinitis due to animal (cat) (dog) hair and ghhiqbW05.1 Allergic rhinitis due to pollenNew Medication:Prednisone 5 mgZithromax Z-Luther 250 mgRecommendations: Continue all medications as prescribed.Refrain from wearing perfumes/scented colognes while visitingour office. Give IBBP now Start the Zithromax today as directed on the label Start the prednisone today and take with food tonight. The rest of the time take in the morning with food as directed on the label Prednisone 40 mg now Continue the Fluticasone 2 sprays each nostril [...]
--- OUTSIDE RECORDS SUMMARY | 2017-11-03 15:45 | XMS REPORT ---
:1940 External Reference #:[id number] Author Organization [facility] Address [address] [place] [address] Phone [phone] Care Team Providers Name Role Phone Jonh Gallardo M.D. Primary Care Physician Unavailable Payers Type Date Identification Numbers Payment Provider Subscriber Medicare Primary Effective: Policy Number: Medicare-National Mariangel Oviedo 2006 [id number] PayID: [id number] [address] [place] [address] Medigap Part B Effective: Policy Number: Aarp United Mariangel Oviedo 2014 [id number] Healthcare Group Name: Medicare Supplement Plan [facility] PayID: [id number] [address] [place] [address] Medigap Part B Effective: 2009 Policy Number: [id number] Anabell Oviedo Expires: 2014 [facility] [address] [place] [address] Problems Date Description Provider Status Onset: 03/15/2017 [...] Spouse Home Environment 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 [employer] pre-exerci se 2 puffs Flovent HFA 02/25/ Active Aerosol 110mcg/Act 1units inhale 2 J45.40 Alba 2016 puffs by Uldrich, mouth [employer] twice a day Omeprazole / Active Capsules DR 40mg once a day Unknown 0000 Sucralfate / Active Tablets 1gm once a day Unknown 0000 Vitamin B12 / Active Tablets 100mcg once a day Unknown 0000 Fish Oil / Active Capsules 600mg once a day Unknown 0000 Nystatin / Active Cream [id number] Morgan To Unknown 0000 /GM Affected Areas Under Breasts tid prn Metamucil / Active Packet 51.7% once a Unknown Fiber 0000 day. Domperidone / Active 10mg once a day Unknown 0000 Fluticasone / Active Suspension 50mcg/Act 16unit 1 spray in Alba Propionate 0000 s each Uldrich, nostril [employer] twice daily Vitamin D3 / Active Capsules [...] 2016 Injection Injection 01/31/ Administered Injection Cristian WNiot 2016 Deisy Abreu Injection 01/31/ Administered Injection [...] 05/03/ Administered Injection Jj tisone 2011 Ermias [id number] 1 M.DNito cc Injection 04/19/ Administered Injection [...] 06/18/ Administered Injection Jj tisone 2010 Ermias [id number] 1 M.D. cc Injection 06/02/ Administered Injection [...] Injection 09/10/ Administered Injection Jj 2005 Deisy Mnoson Injection 08/20/ Administered Injection Jj 2005 Deisy Monson Injection 08/06/ Administered Injection Jj 2005 Deisy Monson Injection 07/23/ Administered Injection Jj 2005 Josefina MonsonDNito Injection 07/09/ Administered Injection Jj 2005 Josefina MonsonDNito Injection 06/25/ Administered Injection Jj 2005 Josefina MonsonDNito Injection 06/11/ Administered Injection Jj 2005 Deisy Monson Injection 05/28/ Administered Injection Jj 2005 Deisy Monson Injection 05/14/ Administered Injection Jj 2005 Josefina MonsonDNito Injection 04/30/ Administered Injection Jj 2005 Josefina [...] Injection 09/18/ Administered Injection Jj 2003 Deisy Monson Injection 09/04/ Administered Injection Jj 2003 Deisy [...] CPT Code Status Date Vaccine Lot # [id number] Given Unknown Pneumococcal Vaccine 25420 Given Unknown Pneumococcal Vaccine 96200 Given Unknown Pneumococcal Vaccine 30212 Given Unknown Influenza Vaccine 87181 Given Unknown Influenza Vaccine 92492 Given Unknown Influenza Vaccine Vital Signs Date [...] Procedures Date CPT Code Description Status 11/01/2017 02195 Ippb Completed 10/11/2017 69552 Injection Completed 10/03/2017 47331 Extract 1-10 Completed 10/03/2017 09321 Extract 1-10 Completed 09/28/2017 88478 Injection Completed 09/28/2017 31487 Pre PFT Completed 09/07/2017 61389 Injection Completed 08/23/2017 16531 Injection Completed 08/09/2017 01499 Injection Completed 08/09/2017 04877 Injection Completed 07/26/2017 47662 Injection Completed 07/05/2017 65475 Injection Completed 06/21/2017 25351 Injection Completed 06/09/2017 99426 Injection Completed 05/26/2017 41939 Injection Completed 04/19/2017 26990 Injection Completed 03/24/2017 66861 Injection Completed 03/15/2017 28600 Ippb Completed 03/15/2017 02129 Pre PFT Completed 02/15/2017 75254 Injection Completed 02/15/2017 45325 Pre PFT Completed 01/13/2017 45227 Injection Completed 12/17/2016 05011 Extract 1-10 Completed 12/14/2016 72106 Injection Completed 11/30/2016 19986 Injection Completed 11/09/2016 22972 Injection Completed 10/26/2016 12856 Injection Completed 10/05/2016 30741 Injection Completed 09/21/2016 46169 Injection Completed 09/07/2016 75058 Injection Completed 08/26/2016 87257 Injection Completed 08/12/2016 94348 Injection Completed 07/28/2016 27748 Injection Completed 07/28/2016 73743 Pre PFT Completed 07/22/2016 49857 Extract 1-10 Completed 07/15/2016 56875 Injection Completed 07/06/2016 00020 Injection Completed 07/06/2016 80861 Injection Completed 06/22/2016 25145 Injection Completed 06/08/2016 30881 Injection Completed 05/25/2016 44106 Injection Completed 05/13/2016 97120 Injection Completed 04/13/2016 05125 Injection Completed 03/09/2016 99172 Injection Completed 03/09/2016 20373 Injection Completed 02/12/2016 31429 Injection Completed 01/08/2016 89129 Injection Completed 12/23/2015 52558 Injection Completed 11/27/2015 89356 Injection Completed 11/12/2015 73988 Extract 1-10 Completed 11/11/2015 95464 Injection Completed 10/28/2015 03403 Injection Completed 10/07/2015 73225 Injection Completed 09/16/2015 08549 Injection Completed 08/26/2015 20133 Injection Completed 08/05/2015 94129 Injection Completed 08/05/2015 79436 Pre PFT Completed 07/22/2015 33594 Injection Completed 07/10/2015 65233 Injection Completed 06/24/2015 56385 Injection Completed 06/03/2015 20291 Injection Completed 05/20/2015 77666 Injection Completed 04/16/2015 66871 Extract 1-10 Completed 03/27/2015 43904 Injection Completed 02/25/2015 99173 Injection Completed 02/25/2015 33362 Pre PFT Completed 01/28/2015 18390 Injection Completed 12/31/2014 35706 Injection Completed 12/24/2014 97332 Injection Completed 12/17/2014 04119 Injection Completed 12/10/2014 06291 Injection Completed 12/05/2014 15395 Injection Completed 11/12/2014 23904 Injection Completed 10/22/2014 71936 Injection Completed 09/24/2014 49532 Injection Completed 07/30/2014 28340 Injection Completed 07/11/2014 91913 Injection Completed 07/03/2014 33271 Extract 1-10 Completed 06/25/2014 05868 Injection Completed 06/11/2014 45639 Injection Completed 06/04/2014 79808 Injection Completed 04/23/2014 52992 Injection Completed 03/26/2014 89328 Pre PFT Completed 03/19/2014 76113 Injection Completed 02/12/2014 15773 Injection Completed 01/08/2014 13302 Injection Completed 12/11/2013 17771 Injection Completed 11/27/2013 96735 Injection Completed 11/27/2013 15359 Injection Completed 11/13/2013 65825 Injection Completed 11/13/2013 96029 Injection Completed 10/23/2013 64433 Injection Completed 10/23/2013 41923 Injection Completed 10/18/2013 55169 Extract 1-10 Completed 10/09/2013 50832 Injection Completed 10/09/2013 82603 Injection Completed 09/25/2013 53856 Injection Completed 09/18/2013 96975 Pre PFT Completed 09/18/2013 07362 Pre PFT Completed 09/11/2013 96589 Injection Completed 09/11/2013 28330 Injection Completed 08/28/2013 98380 Injection Completed 08/28/2013 66032 Injection Completed 08/14/2013 69496 Injection Completed 08/14/2013 81744 Injection Completed 07/31/2013 69410 Injection Completed 07/17/2013 12547 Injection Completed 06/26/2013 40072 Injection Completed 06/26/2013 90781 Injection Completed 06/12/2013 02247 Injection Completed 06/12/2013 44931 Injection Completed 06/12/2013 49163 Pre PFT Completed 05/29/2013 06679 Injection Completed 05/29/2013 45664 Injection Completed 05/01/2013 18636 Injection Completed 05/01/2013 87268 Injection Completed 04/05/2013 07791 Injection Completed 03/08/2013 05634 Injection Completed 03/08/2013 65733 Injection Completed 02/08/2013 68067 Injection Completed 02/08/2013 94943 Injection Completed 01/23/2013 67742 Oxygen Level - Pulse Oximiter Completed 01/01/2013 52132 Extract 1-10 Completed 12/26/2012 77015 Injection Completed 12/26/2012 80758 Injection Completed 11/30/2012 82502 Injection Completed 11/30/2012 21310 Injection Completed 10/24/2012 61428 Injection Completed 10/12/2012 08201 Injection Completed 10/12/2012 16860 Injection Completed 09/26/2012 43567 Injection Completed 09/26/2012 03776 Injection Completed 09/12/2012 44475 Injection Completed 09/12/2012 41040 Injection Completed 08/29/2012 36529 Injection Completed 08/29/2012 57380 Injection Completed 08/03/2012 46897 Injection Completed 08/03/2012 22385 Injection Completed 07/18/2012 58282 Pulmonary Function Test Completed 07/18/2012 86647 Oxygen Level - Pulse Oximiter Completed 07/18/2012 98123 Injection Completed 07/18/2012 08963 Injection Completed 07/18/2012 77156 Injection Completed 07/04/2012 78872 Injection Completed 07/04/2012 98574 Injection Completed 06/20/2012 42532 Injection Completed 06/20/2012 30097 Injection Completed 06/06/2012 00834 Injection Completed 06/06/2012 41556 Injection Completed 05/26/2012 88221 Extract 1-10 Completed 05/23/2012 23098 Injection Completed 05/23/2012 04481 Injection Completed 05/09/2012 17390 Injection Completed 05/09/2012 02840 Injection Completed 04/18/2012 30546 Injection Completed 03/21/2012 35842 Injection Completed 02/22/2012 26278 Injection Completed 01/18/2012 29820 Injection Completed 11/23/2011 93574 Injection Completed 11/02/2011 56190 Injection Completed 10/19/2011 74285 Injection Completed 09/28/2011 96637 Injection Completed 09/14/2011 62744 Injection Completed 08/31/2011 80324 Injection Completed 08/26/2011 55353 Extract 1-10 Completed 08/17/2011 72548 Injection Completed 08/03/2011 86612 Injection Completed 07/22/2011 97285 Injection Completed 07/06/2011 55960 Injection Completed 07/06/2011 76155 Pulmonary Function Test Completed 06/24/2011 46209 Injection Completed 06/08/2011 45493 Injection Completed 05/27/2011 12183 Injection Completed 05/11/2011 10053 Injection Completed 04/20/2011 14166 Injection Completed 04/06/2011 18919 Injection Completed 03/09/2011 32868 Injection Completed 02/11/2011 48789 Extract 1-10 Completed 02/09/2011 92277 Injection Completed 01/12/2011 14142 Injection Completed 12/17/2010 31074 Injection Completed 11/26/2010 23751 Injection Completed 11/10/2010 41966 Injection Completed 10/27/2010 17563 Injection Completed 10/13/2010 94859 Injection Completed 09/22/2010 35262 Injection Completed 09/22/2010 70871 Pulmonary Function Test Completed 09/10/2010 20291 Injection Completed 08/25/2010 96500 Injection Completed 08/11/2010 10023 Extract 1-10 Completed 08/11/2010 65552 Injection Completed 07/28/2010 00300 Injection Completed 06/25/2010 06659 Injection Completed 06/18/2010 22766 Pulmonary Function Test Completed 06/02/2010 11011 Injection Completed 05/19/2010 90061 Injection Completed 05/05/2010 39570 Injection Completed 04/21/2010 56758 Injection Completed 03/19/2010 82406 Injection Completed 02/12/2010 87794 Injection Completed 01/20/2010 97948 Injection Completed 12/25/2009 30927 Injection Completed 11/27/2009 70125 Injection Completed 11/27/2009 04626 Pulmonary Function Test Completed 11/13/2009 89380 Extract 1-10 Completed 11/11/2009 29686 Injection Completed 10/28/2009 17053 Injection Completed 10/16/2009 72731 Injection Completed 09/30/2009 03986 Injection Completed 09/16/2009 39653 Injection Completed 08/26/2009 47588 Injection Completed 08/12/2009 49118 Injection Completed 07/22/2009 31535 Injection Completed 07/01/2009 81724 Injection Completed 06/17/2009 03978 Injection Completed 06/05/2009 46039 Extract 1-10 Completed 06/03/2009 77161 Injection Completed 05/20/2009 97368 Injection Completed 05/06/2009 32863 Injection Completed 04/08/2009 78223 Injection Completed 03/11/2009 84145 Injection Completed 02/11/2009 78798 Injection Completed 01/16/2009 68631 Injection Completed 12/17/2008 84698 Injection Completed 12/05/2008 27730 Pulmonary Function Test Completed 11/19/2008 09994 Injection Completed 10/29/2008 77591 Injection Completed 10/15/2008 58012 Injection Completed 10/03/2008 03459 Extract 1-10 Completed 10/01/2008 41678 Injection Completed 09/10/2008 48073 Injection Completed 08/27/2008 84872 Injection Completed 08/13/2008 20308 Injection Completed 08/01/2008 99600 Injection Completed 07/18/2008 84780 Injection Completed 07/04/2008 39820 Injection Completed 06/25/2008 41053 Injection Completed 06/13/2008 29899 Injection Completed 05/30/2008 86682 Injection Completed 05/21/2008 83244 Injection Completed 04/25/2008 95344 Extract 1-10 Completed 04/23/2008 55368 Injection Completed 03/26/2008 87319 Injection Completed 02/27/2008 12279 Injection Completed 01/25/2008 62656 Injection Completed 12/26/2007 43670 Injection Completed 12/19/2007 44482 Pulmonary Function Test Completed 11/21/2007 15453 Injection Completed 11/07/2007 11003 Injection Completed 10/24/2007 94145 Injection Completed 10/10/2007 28639 Injection Completed 09/26/2007 79629 Injection Completed 09/14/2007 91742 Injection Completed 08/22/2007 30627 Injection Completed 08/08/2007 30695 Injection Completed 07/27/2007 90246 Injection Completed 06/20/2007 90055 Injection Completed 05/30/2007 14783 Injection Completed 05/09/2007 66567 Injection Completed 05/04/2007 52701 Extract 1-10 Completed 04/25/2007 36015 Injection Completed 03/28/2007 92986 Injection Completed 03/07/2007 23111 Injection Completed 02/09/2007 24000 Injection Completed 01/17/2007 53032 Injection Completed 01/03/2007 16831 Injection Completed 12/22/2006 19874 Injection Completed 12/20/2006 36527 Pulmonary Function Test Completed 12/06/2006 43510 Injection Completed 11/24/2006 47194 Injection Completed 11/08/2006 86909 Injection Completed 10/26/2006 72602 Extract 1-10 Completed 10/25/2006 01023 Injection Completed 10/11/2006 15595 Injection Completed 09/27/2006 76673 Injection Completed 09/13/2006 20146 Injection Completed 08/30/2006 38315 Injection Completed 08/16/2006 11852 Injection Completed 08/02/2006 69413 Injection Completed 07/21/2006 95042 Injection Completed 06/28/2006 14191 Injection Completed 06/14/2006 89626 Injection Completed 05/31/2006 65702 Injection Completed 05/19/2006 99458 Injection Completed 05/10/2006 42833 Extract 1-10 Completed 05/05/2006 44191 Injection Completed 04/19/2006 37231 Injection Completed 03/31/2006 85127 Injection Completed 03/17/2006 51063 Injection Completed 03/03/2006 64176 Injection Completed 02/15/2006 83896 Injection Completed 02/01/2006 44885 Injection Completed 01/25/2006 74226 Injection Completed 01/24/2006 15913 Extract 1-10 Completed 01/06/2006 57022 Injection Completed 12/21/2005 13356 Pulmonary Function Test Completed 11/30/2005 67665 Injection Completed 11/16/2005 52760 Injection Completed 11/04/2005 11405 Injection Completed 10/14/2005 32029 Ippb Completed 09/28/2005 19617 Injection Completed 09/21/2005 89343 Injection Completed 09/07/2005 74949 Injection Completed 08/24/2005 65045 Injection Completed 08/03/2005 29773 Injection Completed 07/13/2005 96038 Injection Completed 07/08/2005 50913 Extract 1-10 Completed 06/24/2005 25179 Injection Completed 06/01/2005 19153 Injection Completed 05/18/2005 67228 Injection Completed 04/20/2005 77521 Injection Completed 03/23/2005 19821 Injection Completed 02/23/2005 42628 Injection Completed 01/19/2005 58820 Injection Completed 12/29/2004 86025 Injection Completed 12/17/2004 18916 Injection Completed 11/26/2004 60271 Injection Completed 11/24/2004 61643 Extract 1-10 Completed 11/12/2004 13693 Injection Completed 10/27/2004 95205 Injection Completed 10/13/2004 46579 Pulmonary Function Test Completed 10/08/2004 88811 Injection Completed 09/24/2004 63269 Injection Completed 09/10/2004 40058 Injection Completed 08/20/2004 52934 Injection Completed 08/06/2004 07331 Injection Completed 07/23/2004 33469 Injection Completed 07/09/2004 90472 Injection Completed 06/25/2004 39313 Injection Completed 06/23/2004 51240 Extract 1-10 Completed 06/11/2004 07058 Injection Completed 05/28/2004 14958 Injection Completed 05/14/2004 97599 Injection Completed 04/30/2004 81413 Injection Completed 04/14/2004 03590 Injection Completed 03/17/2004 38787 Injection Completed 02/18/2004 39067 Injection Completed 01/23/2004 40111 Injection Completed 12/26/2003 09234 Injection Completed 11/28/2003 03081 Injection Completed 11/26/2003 55229 Extract 1-10 Completed 11/12/2003 43543 Injection Completed 10/31/2003 14385 Injection Completed 10/17/2003 61690 Injection Completed 09/26/2003 34253 Injection Completed 09/19/2003 34269 Injection Completed 09/05/2003 71387 Injection Completed 08/27/2003 92730 Pulmonary Function Test Completed 08/22/2003 04315 Injection Completed 08/08/2003 94522 Injection Completed 07/25/2003 93351 Injection Completed 07/11/2003 10091 Injection Completed 07/09/2003 15784 Extract 1-10 Completed 06/27/2003 06100 Injection Completed 06/13/2003 78555 Injection Completed 05/30/2003 77201 Injection Completed 05/16/2003 90234 Injection Completed 04/25/2003 22543 Injection Completed 04/18/2003 29881 Injection Completed 04/04/2003 30655 Injection Completed 03/21/2003 69720 Injection Completed 03/07/2003 91226 Injection Completed 02/21/2003 33167 Injection Completed 02/05/2003 25795 Extract 1-10 Completed 01/29/2003 34274 Injection Completed 01/15/2003 25445 Injection Completed 01/01/2003 42838 Injection Completed 12/20/2002 84588 Injection Completed 12/06/2002 55515 Injection Completed 11/22/2002 52509 Injection Completed 11/08/2002 78357 Injection Completed 10/25/2002 84564 Injection Completed 10/11/2002 85144 Injection Completed 09/25/2002 97454 Injection Completed 09/21/2002 30712 Extract 1-10 Completed 09/06/2002 45019 Injection Completed Encounters Type Date Location Provider CPT E/M Dx Office Visit 11/01/2017 4:20p [facility] ANTONIA Crenshaw 12287 Z23 J45.41 J30.81 J30.1 Office Visit 09/28/2017 9:00a [facility] Alba Mcgovern, [facility] [address]7899 J30.89 J30.81 J30.2 J45.40 Office Visit 03/24/2017 3:00p [facility] Haylee Nathan [facility] 53260 J45.40 J30.1 J30.81 J30.89 J30.2 Office Visit 03/15/2017 11:20a [facility] Nancy Yarbrough [facility] 40694 J45.40 J30.1 J30.81 R05 J06.9 Office Visit 02/15/2017 3:00p [facility] Nancy Yarbrough [facility] 60324 J30.1 J45.30 J30.2 Office Visit 01/25/2017 11:40a [facility] Tamanna Chi M.D. 73892 J30.1 J30.2 J30.81 J30.89 J45.30 J01.90 Office Visit 07/28/2016 11:00a [facility] Cristian Abreu M.D. 03171 J30.89 J45.30 Z68.34 Office Visit 08/05/2015 2:40p [facility] Haylee Nathan [facility] 89751 J45.40 J30.1 J30.81 J30.89 J30.2 Z68.34 Office Visit 02/25/2015 10:20a [facility] Haylee Nathan [facility] 00928 J45.40 J30.1 J30.2 J30.89 J30.81 Z68.34 Office Visit 03/26/2014 9:20a [facility] Nadine Hernandez, 20122 477.0 PH.D, RPA-C 477.8 493.00 Office Visit 09/18/2013 9:20a [facility] Valeria Duke [facility] 67462 477.0 477.8 493.00 Office Visit 06/12/2013 10:20a [facility] Valeria Duke [facility] 78564 477.8 477.0 493.00 Office Visit 01/23/2013 2:20p [facility] Valeria Duke, [employer] 37838 461.0 Office Visit 07/18/2012 8:40a [facility] Tamanna Chi M.D. 58362 477.0 477.8 477.0 493.00 Office Visit 02/29/2012 10:40a [facility] Oumou VermaLIZZYP-C 00520 784.91 786.2 465.8 Office Visit 01/18/2012 8:54a [facility] Jj Monson M.D. 44915 477.0 477.8 Office Visit 01/28/2011 10:40a [facility] Greyson Flaherty M.D. 64509 477.0 477.8 493.90 Office Visit 11/11/2009 11:00a [facility] Tamanna Chi M.D. 12530 477.0 477.8 493.90 Office Visit 10/14/2005 8:30a [facility] Jj Monson M.D. 73464 477.0 477.8 493.90 Office Visit 02/12/2003 9:00a [facility] Jj Monson M.D. 93323 477.0 477.8 Plan of Care 11/01/2017 - OSCAR Crenshaw-CZ23 Encounter for tnxgrssgvvbdS04.41 Moderate persistent asthma with (acute) elxggnkeatiuG43.81 Allergic rhinitis due to animal (cat) (dog) hair and iwwkcoA05.1 Allergic rhinitis due to pollenNew Medication:Prednisone 5 [...]
--- OUTSIDE RECORDS SUMMARY | 2017-11-03 15:46 | XMS REPORT ---
:1940 External Reference #:[id number] Author Organization [facility] Address [address] [place] [address] Phone [phone] Care Team Providers Name Role Phone Jonh Gallardo M.D. Primary Care Physician Unavailable Payers Type Date Identification Numbers Payment Provider Subscriber Medicare Primary Effective: Policy Number: Medicare-National Mariangel Oviedo 2006 [id number] PayID: [id number] [address] [place] [address] Medigap Part B Effective: Policy Number: Aarp United Mariangel Oviedo 2014 [id number] Healthcare Group Name: Medicare Supplement Plan [facility] Claims PayID: [id number] [address] [place] [address] Medigap Part B Effective: 2009 Policy Number: [id number] Anabell Oviedo Expires: 2014 [facility] [address] [place] [address] Problems Date Description Provider Status Onset: 03/15/2017 [...] Spouse Home Environment 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 [employer] pre-exerci se 2 puffs Flovent HFA 02/25/ Active Aerosol 110mcg/Act 1units inhale 2 J45.40 Alba 2016 puffs by Uldrich, mouth [employer] SCI[employer]ER[employer]C twice a day Omeprazole / Active Capsules DR 40mg once a day Unknown 0000 Sucralfate / Active Tablets 1gm once a day Unknown 0000 Vitamin B12 / Active Tablets 100mcg once a day Unknown 0000 Fish Oil / Active Capsules 600mg once a day Unknown 0000 Nystatin / Active Cream [id number] Morgan To Unknown 0000 /GM Affected Areas Under Breasts tid prn Metamucil / Active Packet 51.7% once a Unknown Fiber 0000 day. Domperidone / Active 10mg once a day Unknown 0000 Fluticasone / Active Suspension 50mcg/Act 16unit 1 spray in Alba Propionate 0000 s each Uldrich, nostril [employer] SCI[employer] TE[employer]ER-C twice daily Vitamin D3 / Active Capsules [...] 05/03/ Administered Injection Jj tisone 2011 Ermias [id number] 1 M.DNito cc Injection 04/19/ Administered Injection [...] 06/18/ Administered Injection Jj tisone 2010 Ermias [id number] 1 M.D. cc Injection 06/02/ Administered Injection [...] Monson Injection 01/03/ Administered Injection Jj 2006 eDisy Monson Injection 12/22/ Administered Injection Jj 2007 [...] Injection 04/30/ Administered Injection Jj 2005 Josefina MnosonDNito Injection 04/14/ Administered Injection Jj 2005 Josefina [...] Injection 06/26/ Administered Injection Jj 2004 Josefina MonsonDiNto Injection 06/12/ Administered Injection Jj 2004 Deisy [...] Injection 11/22/ Administered Injection Jj 2002 Deisy Monsno Injection 11/08/ Administered Injection Jj 2002 Deisy Monson Injection 10/25/ Administered Injection Jj 2002 Deisy Monson Injection 10/11/ Administered Injection Jj 2002 Deisy Monson Injection 09/25/ Administered Injection Jj 2002 Deisy Monson Injection 09/06/ Administered Injection Jj 2002 Deisy Monson Immunizations CPT Code Status Date Vaccine Lot # [id number] Given Unknown Pneumococcal Vaccine 81139 Given Unknown Pneumococcal Vaccine 08980 Given Unknown Pneumococcal Vaccine 13770 Given Unknown Influenza Vaccine 89150 Given Unknown Influenza Vaccine 14583 Given Unknown Influenza Vaccine Vital Signs Date [...] Procedures Date CPT Code Description Status 11/01/2017 88275 Ippb Completed 10/11/2017 16725 Injection Completed 10/03/2017 47814 Extract 1-10 Completed 10/03/2017 15883 Extract 1-10 Completed 09/28/2017 57621 Injection Completed 09/28/2017 10189 Pre PFT Completed 09/07/2017 55286 Injection Completed 08/23/2017 69377 Injection Completed 08/09/2017 29171 Injection Completed 08/09/2017 15242 Injection Completed 07/26/2017 00444 Injection Completed 07/05/2017 54683 Injection Completed 06/21/2017 29448 Injection Completed 06/09/2017 69525 Injection Completed 05/26/2017 95133 Injection Completed 04/19/2017 90853 Injection Completed 03/24/2017 83698 Injection Completed 03/15/2017 11694 Ippb Completed 03/15/2017 75259 Pre PFT Completed 02/15/2017 30902 Injection Completed 02/15/2017 96659 Pre PFT Completed 01/13/2017 47024 Injection Completed 12/17/2016 77297 Extract 1-10 Completed 12/14/2016 98480 Injection Completed 11/30/2016 11307 Injection Completed 11/09/2016 56447 Injection Completed 10/26/2016 13840 Injection Completed 10/05/2016 75369 Injection Completed 09/21/2016 43423 Injection Completed 09/07/2016 48936 Injection Completed 08/26/2016 09669 Injection Completed 08/12/2016 63082 Injection Completed 07/28/2016 67342 Injection Completed 07/28/2016 11794 Pre PFT Completed 07/22/2016 47583 Extract 1-10 Completed 07/15/2016 74174 Injection Completed 07/06/2016 53600 Injection Completed 07/06/2016 10745 Injection Completed 06/22/2016 21692 Injection Completed 06/08/2016 70043 Injection Completed 05/25/2016 53483 Injection Completed 05/13/2016 32289 Injection Completed 04/13/2016 71155 Injection Completed 03/09/2016 76030 Injection Completed 03/09/2016 63072 Injection Completed 02/12/2016 08306 Injection Completed 01/08/2016 09492 Injection Completed 12/23/2015 82125 Injection Completed 11/27/2015 29285 Injection Completed 11/12/2015 75315 Extract 1-10 Completed 11/11/2015 64977 Injection Completed 10/28/2015 03066 Injection Completed 10/07/2015 58740 Injection Completed 09/16/2015 68396 Injection Completed 08/26/2015 50421 Injection Completed 08/05/2015 85059 Injection Completed 08/05/2015 71831 Pre PFT Completed 07/22/2015 39991 Injection Completed 07/10/2015 44427 Injection Completed 06/24/2015 08163 Injection Completed 06/03/2015 13569 Injection Completed 05/20/2015 63866 Injection Completed 04/16/2015 36433 Extract 1-10 Completed 03/27/2015 05969 Injection Completed 02/25/2015 82434 Injection Completed 02/25/2015 14232 Pre PFT Completed 01/28/2015 05691 Injection Completed 12/31/2014 26483 Injection Completed 12/24/2014 74030 Injection Completed 12/17/2014 47584 Injection Completed 12/10/2014 21614 Injection Completed 12/05/2014 08146 Injection Completed 11/12/2014 22186 Injection Completed 10/22/2014 09697 Injection Completed 09/24/2014 20147 Injection Completed 07/30/2014 28469 Injection Completed 07/11/2014 71473 Injection Completed 07/03/2014 26795 Extract 1-10 Completed 06/25/2014 68322 Injection Completed 06/11/2014 39371 Injection Completed 06/04/2014 67548 Injection Completed 04/23/2014 83920 Injection Completed 03/26/2014 09484 Pre PFT Completed 03/19/2014 33891 Injection Completed 02/12/2014 58400 Injection Completed 01/08/2014 57318 Injection Completed 12/11/2013 13383 Injection Completed 11/27/2013 27821 Injection Completed 11/27/2013 75261 Injection Completed 11/13/2013 00902 Injection Completed 11/13/2013 50190 Injection Completed 10/23/2013 43295 Injection Completed 10/23/2013 97701 Injection Completed 10/18/2013 17212 Extract 1-10 Completed 10/09/2013 45757 Injection Completed 10/09/2013 48849 Injection Completed 09/25/2013 93575 Injection Completed 09/18/2013 13166 Pre PFT Completed 09/18/2013 95165 Pre PFT Completed 09/11/2013 95452 Injection Completed 09/11/2013 71308 Injection Completed 08/28/2013 98187 Injection Completed 08/28/2013 87152 Injection Completed 08/14/2013 06134 Injection Completed 08/14/2013 35483 Injection Completed 07/31/2013 86472 Injection Completed 07/17/2013 78573 Injection Completed 06/26/2013 76551 Injection Completed 06/26/2013 81375 Injection Completed 06/12/2013 66224 Injection Completed 06/12/2013 90594 Injection Completed 06/12/2013 82065 Pre PFT Completed 05/29/2013 73619 Injection Completed 05/29/2013 57900 Injection Completed 05/01/2013 84362 Injection Completed 05/01/2013 78363 Injection Completed 04/05/2013 96465 Injection Completed 03/08/2013 95432 Injection Completed 03/08/2013 48358 Injection Completed 02/08/2013 14538 Injection Completed 02/08/2013 98279 Injection Completed 01/23/2013 93155 Oxygen Level - Pulse Oximiter Completed 01/01/2013 43443 Extract 1-10 Completed 12/26/2012 15268 Injection Completed 12/26/2012 99107 Injection Completed 11/30/2012 64978 Injection Completed 11/30/2012 72969 Injection Completed 10/24/2012 08485 Injection Completed 10/12/2012 79119 Injection Completed 10/12/2012 52136 Injection Completed 09/26/2012 99794 Injection Completed 09/26/2012 16401 Injection Completed 09/12/2012 47483 Injection Completed 09/12/2012 24489 Injection Completed 08/29/2012 06091 Injection Completed 08/29/2012 23306 Injection Completed 08/03/2012 63500 Injection Completed 08/03/2012 63088 Injection Completed 07/18/2012 18050 Pulmonary Function Test Completed 07/18/2012 18899 Oxygen Level - Pulse Oximiter Completed 07/18/2012 18115 Injection Completed 07/18/2012 72702 Injection Completed 07/18/2012 10293 Injection Completed 07/04/2012 63839 Injection Completed 07/04/2012 61314 Injection Completed 06/20/2012 00547 Injection Completed 06/20/2012 74598 Injection Completed 06/06/2012 66417 Injection Completed 06/06/2012 83027 Injection Completed 05/26/2012 54128 Extract 1-10 Completed 05/23/2012 45631 Injection Completed 05/23/2012 51613 Injection Completed 05/09/2012 29990 Injection Completed 05/09/2012 58124 Injection Completed 04/18/2012 86563 Injection Completed 03/21/2012 97633 Injection Completed 02/22/2012 53448 Injection Completed 01/18/2012 54163 Injection Completed 11/23/2011 05632 Injection Completed 11/02/2011 09163 Injection Completed 10/19/2011 87133 Injection Completed 09/28/2011 51768 Injection Completed 09/14/2011 15973 Injection Completed 08/31/2011 98864 Injection Completed 08/26/2011 24012 Extract 1-10 Completed 08/17/2011 46005 Injection Completed 08/03/2011 02109 Injection Completed 07/22/2011 22858 Injection Completed 07/06/2011 95918 Injection Completed 07/06/2011 19103 Pulmonary Function Test Completed 06/24/2011 37868 Injection Completed 06/08/2011 08340 Injection Completed 05/27/2011 00640 Injection Completed 05/11/2011 94550 Injection Completed 04/20/2011 73293 Injection Completed 04/06/2011 78184 Injection Completed 03/09/2011 56862 Injection Completed 02/11/2011 17350 Extract 1-10 Completed 02/09/2011 78891 Injection Completed 01/12/2011 78234 Injection Completed 12/17/2010 10237 Injection Completed 11/26/2010 07026 Injection Completed 11/10/2010 92887 Injection Completed 10/27/2010 15602 Injection Completed 10/13/2010 47386 Injection Completed 09/22/2010 61601 Injection Completed 09/22/2010 87302 Pulmonary Function Test Completed 09/10/2010 51947 Injection Completed 08/25/2010 16896 Injection Completed 08/11/2010 06714 Extract 1-10 Completed 08/11/2010 82849 Injection Completed 07/28/2010 90283 Injection Completed 06/25/2010 16517 Injection Completed 06/18/2010 60956 Pulmonary Function Test Completed 06/02/2010 64045 Injection Completed 05/19/2010 31561 Injection Completed 05/05/2010 48205 Injection Completed 04/21/2010 98363 Injection Completed 03/19/2010 07980 Injection Completed 02/12/2010 30013 Injection Completed 01/20/2010 29190 Injection Completed 12/25/2009 97492 Injection Completed 11/27/2009 09805 Injection Completed 11/27/2009 50402 Pulmonary Function Test Completed 11/13/2009 96189 Extract 1-10 Completed 11/11/2009 44944 Injection Completed 10/28/2009 76757 Injection Completed 10/16/2009 64767 Injection Completed 09/30/2009 07574 Injection Completed 09/16/2009 10037 Injection Completed 08/26/2009 30140 Injection Completed 08/12/2009 29458 Injection Completed 07/22/2009 92339 Injection Completed 07/01/2009 40249 Injection Completed 06/17/2009 08180 Injection Completed 06/05/2009 12054 Extract 1-10 Completed 06/03/2009 99519 Injection Completed 05/20/2009 75714 Injection Completed 05/06/2009 49756 Injection Completed 04/08/2009 36093 Injection Completed 03/11/2009 02158 Injection Completed 02/11/2009 71504 Injection Completed 01/16/2009 11192 Injection Completed 12/17/2008 05720 Injection Completed 12/05/2008 93797 Pulmonary Function Test Completed 11/19/2008 23933 Injection Completed 10/29/2008 89217 Injection Completed 10/15/2008 01027 Injection Completed 10/03/2008 23916 Extract 1-10 Completed 10/01/2008 72570 Injection Completed 09/10/2008 28184 Injection Completed 08/27/2008 78328 Injection Completed 08/13/2008 90478 Injection Completed 08/01/2008 13566 Injection Completed 07/18/2008 68671 Injection Completed 07/04/2008 24411 Injection Completed 06/25/2008 04503 Injection Completed 06/13/2008 28954 Injection Completed 05/30/2008 63608 Injection Completed 05/21/2008 14042 Injection Completed 04/25/2008 18069 Extract 1-10 Completed 04/23/2008 61804 Injection Completed 03/26/2008 31477 Injection Completed 02/27/2008 18909 Injection Completed 01/25/2008 68093 Injection Completed 12/26/2007 05873 Injection Completed 12/19/2007 64509 Pulmonary Function Test Completed 11/21/2007 81657 Injection Completed 11/07/2007 92336 Injection Completed 10/24/2007 23734 Injection Completed 10/10/2007 73798 Injection Completed 09/26/2007 17357 Injection Completed 09/14/2007 63221 Injection Completed 08/22/2007 42860 Injection Completed 08/08/2007 62287 Injection Completed 07/27/2007 30451 Injection Completed 06/20/2007 47690 Injection Completed 05/30/2007 49872 Injection Completed 05/09/2007 77467 Injection Completed 05/04/2007 38118 Extract 1-10 Completed 04/25/2007 76422 Injection Completed 03/28/2007 27188 Injection Completed 03/07/2007 47335 Injection Completed 02/09/2007 98770 Injection Completed 01/17/2007 38067 Injection Completed 01/03/2007 68563 Injection Completed 12/22/2006 59862 Injection Completed 12/20/2006 58711 Pulmonary Function Test Completed 12/06/2006 90139 Injection Completed 11/24/2006 10777 Injection Completed 11/08/2006 61087 Injection Completed 10/26/2006 68671 Extract 1-10 Completed 10/25/2006 69915 Injection Completed 10/11/2006 81137 Injection Completed 09/27/2006 03466 Injection Completed 09/13/2006 02809 Injection Completed 08/30/2006 82494 Injection Completed 08/16/2006 92794 Injection Completed 08/02/2006 10482 Injection Completed 07/21/2006 73791 Injection Completed 06/28/2006 58973 Injection Completed 06/14/2006 54337 Injection Completed 05/31/2006 01246 Injection Completed 05/19/2006 80309 Injection Completed 05/10/2006 50749 Extract 1-10 Completed 05/05/2006 72812 Injection Completed 04/19/2006 20909 Injection Completed 03/31/2006 66111 Injection Completed 03/17/2006 52841 Injection Completed 03/03/2006 15815 Injection Completed 02/15/2006 52338 Injection Completed 02/01/2006 27182 Injection Completed 01/25/2006 42314 Injection Completed 01/24/2006 35345 Extract 1-10 Completed 01/06/2006 35341 Injection Completed 12/21/2005 76526 Pulmonary Function Test Completed 11/30/2005 01922 Injection Completed 11/16/2005 09609 Injection Completed 11/04/2005 23652 Injection Completed 10/14/2005 42025 Ippb Completed 09/28/2005 46052 Injection Completed 09/21/2005 41768 Injection Completed 09/07/2005 47600 Injection Completed 08/24/2005 32853 Injection Completed 08/03/2005 73856 Injection Completed 07/13/2005 97385 Injection Completed 07/08/2005 35089 Extract 1-10 Completed 06/24/2005 21210 Injection Completed 06/01/2005 12972 Injection Completed 05/18/2005 76585 Injection Completed 04/20/2005 77653 Injection Completed 03/23/2005 93063 Injection Completed 02/23/2005 42580 Injection Completed 01/19/2005 59175 Injection Completed 12/29/2004 13566 Injection Completed 12/17/2004 16810 Injection Completed 11/26/2004 26904 Injection Completed 11/24/2004 36934 Extract 1-10 Completed 11/12/2004 25046 Injection Completed 10/27/2004 36871 Injection Completed 10/13/2004 98244 Pulmonary Function Test Completed 10/08/2004 77619 Injection Completed 09/24/2004 30865 Injection Completed 09/10/2004 35292 Injection Completed 08/20/2004 04220 Injection Completed 08/06/2004 33372 Injection Completed 07/23/2004 25475 Injection Completed 07/09/2004 49640 Injection Completed 06/25/2004 39750 Injection Completed 06/23/2004 36152 Extract 1-10 Completed 06/11/2004 17949 Injection Completed 05/28/2004 81500 Injection Completed 05/14/2004 78429 Injection Completed 04/30/2004 41414 Injection Completed 04/14/2004 79376 Injection Completed 03/17/2004 53218 Injection Completed 02/18/2004 24458 Injection Completed 01/23/2004 35470 Injection Completed 12/26/2003 16405 Injection Completed 11/28/2003 63637 Injection Completed 11/26/2003 67931 Extract 1-10 Completed 11/12/2003 07324 Injection Completed 10/31/2003 51936 Injection Completed 10/17/2003 69749 Injection Completed 09/26/2003 29697 Injection Completed 09/19/2003 65193 Injection Completed 09/05/2003 06096 Injection Completed 08/27/2003 47172 Pulmonary Function Test Completed 08/22/2003 86740 Injection Completed 08/08/2003 03124 Injection Completed 07/25/2003 65114 Injection Completed 07/11/2003 31862 Injection Completed 07/09/2003 42191 Extract 1-10 Completed 06/27/2003 43990 Injection Completed 06/13/2003 30412 Injection Completed 05/30/2003 98512 Injection Completed 05/16/2003 09894 Injection Completed 04/25/2003 23803 Injection Completed 04/18/2003 55366 Injection Completed 04/04/2003 53759 Injection Completed 03/21/2003 72231 Injection Completed 03/07/2003 87210 Injection Completed 02/21/2003 95606 Injection Completed 02/05/2003 73185 Extract 1-10 Completed 01/29/2003 68059 Injection Completed 01/15/2003 50266 Injection Completed 01/01/2003 64307 Injection Completed 12/20/2002 50672 Injection Completed 12/06/2002 10812 Injection Completed 11/22/2002 34395 Injection Completed 11/08/2002 08456 Injection Completed 10/25/2002 33592 Injection Completed 10/11/2002 52275 Injection Completed 09/25/2002 92814 Injection Completed 09/21/2002 17418 Extract 1-10 Completed 09/06/2002 27935 Injection Completed Encounters Type Date Location Provider CPT E/M Dx Office Visit 09/28/2017 9:00a [place] ANTONIA Kaur 23925 J30.89 J30.81 J30.2 J45.40 Office Visit 03/24/2017 3:00p [place] [facility] Haylee Nathan [facility] 55673 J45.40 J30.1 J30.81 J30.89 J30.2 Office Visit 03/15/2017 11:20a [place] [facility] Nancy Yarbrough [facility] 77236 J45.40 J30.1 J30.81 R05 J06.9 Office Visit 02/15/2017 3:00p [place] [facility] Nancy Yarbrough [facility] 42860 J30.1 J45.30 J30.2 Office Visit 01/25/2017 11:40a [place] [facility] Tamanna Chi M.D. 26895 J30.1 J30.2 J30.81 J30.89 J45.30 J01.90 Office Visit 07/28/2016 11:00a [place] [facility] Cristian Abreu M.D. 27478 J30.89 J45.30 Z68.34 Office Visit 08/05/2015 2:40p [place] [facility] Haylee Nathan [facility] 59243 J45.40 J30.1 J30.81 J30.89 J30.2 Z68.34 Office Visit 02/25/2015 10:20a [place] [facility] Haylee Nathan [facility] 32853 J45.40 J30.1 J30.2 J30.89 J30.81 Z68.34 Office Visit 03/26/2014 9:20a [place] [facility] Nadine Hernandez, 06829 477.0 PH.D, RPA-C 477.8 493.00 Office Visit 09/18/2013 9:20a [place] [facility] Valeria Duke [facility] 04997 477.0 477.8 493.00 Office Visit 06/12/2013 10:20a [place] [facility] Valeria Duke [facility] 33531 477.8 477.0 493.00 Office Visit 01/23/2013 2:20p [place] [facility] Valeria Duke [facility] 59926 461.0 Office Visit 07/18/2012 8:40a [place] [facility] Tamanna Chi M.D. 44455 477.0 477.8 477.0 493.00 Office Visit 02/29/2012 10:40a [place] [facility] Oumou VermaOSCAR-Yeison 84178 784.91 786.2 465.8 Office Visit 01/18/2012 8:54a [place] [facility] Jj Monson M.D. 98105 477.0 477.8 Office Visit 01/28/2011 10:40a [place] [facility] Greyson Flaherty M.D. 76465 477.0 477.8 493.90 Office Visit 11/11/2009 11:00a [place] [facility] Tamanna Chi M.D. 45149 477.0 477.8 493.90 Office Visit 10/14/2005 8:30a [place] [facility] Jj Monson M.D. 39112 477.0 477.8 493.90 Office Visit 02/12/2003 9:00a [place] [facility] Jj Monson M.D. 54187 477.0 477.8 Plan of Care 11/01/2017 - [facility] Crenshaw-CZ23 Encounter for zqcmirjujmtpN55.41 Moderate persistent asthma with (acute) cfwzlququypwW53.81 Allergic rhinitis due to animal (cat) (dog) hair and lownjkI67.1 Allergic rhinitis due to pollenNew Medication:Prednisone 5 [...]
[2017-11-03] MEDS ORDERED: Levalbuterol 1.25MG/0.5ML NEB INH ONE (16:14)
--- NOTE | 2017-11-03 16:19 | UC ---
Respiratory Complaint HPI - HPI Summary HPI Summary: 77 yo with asthma, developed upper respiratory symptoms approx 10 days ago. Progressive, with development of fever about 5 days ago. Assessed by gis instructor on 11/01, started prednisone, azithromycin and had a nebulizer with improvement. Fever has decreased, but feels more short of breath. Uses albuterol ad wilfredo, sounds as though she has used Proair about 4 times since this morning ? 8 puffs. Mildly tachycardic, but without chest pain. On 40mg of prednisone, had potatoes, squash and icecream about 3 hours ago, now has FS glucose of 172. - History of Current Complaint Chief Complaint: UCRespiratory Stated Complaint: SOB Time Seen by Provider: 11/03/17 15:55 Hx Obtained From: Patient Hx Last Menstrual Period: n/a Onset/Duration: Gradual Onset, Lasting Days Severity Currently: Moderate Pain Intensity: 2 Character: Cough: Nonproductive Aggravating Factors: Exertion, Recumbent Position Alleviating Factors: Bronchodilator Associated Signs And Symptoms: Positive: Dyspnea, Dizziness - Risk Factors Pulmonary Embolism Risk Factors: Negative - Allergies/Home Medications Allergies/Adverse Reactions: Allergies Allergy/AdvReac Type Severity Reaction Status Date / Time Adhesive Tape Allergy Intermediate Rash Verified 11/03/17 15:37 amoxicillin Allergy Hives Verified 11/03/17 15:37 Penicillins Allergy Hives Verified 11/03/17 15:37 prednisone Allergy Facial Verified 11/03/17 15:37 Redness/Flushing tetracycline Allergy Headache Verified 11/03/17 15:37 Home Medications: Home Medications Albuterol HFA INHALER* [Ventolin HFA Inhaler*] 2 puff INH Q6H PRN 11/03/17 [ History Confirmed 11/03/17] Azithromycin TAB* [Zithromax TAB (Z-CORY) 250 mg #6 tabs] 250 mg PO DAILY [History Confirmed 11/03/17] predniSONE TAB* [Deltasone 20 MG TAB*] 40 mg PO DAILY 11/03/17 [History Confirmed 11/03/17] PMH/Surg Hx/FS Hx/Imm Hx Previously Healthy: No - CLL in remission Respiratory History: Asthma - Surgical History Surgical History: Yes Surgery Procedure, Year, and Place: GALLBLADDER 2004--[id number]. right knee surgery- [facility]. [facility]d wall her[place], then mesh infection and subsequent removal. Hernia repair Mar 2016. TUBAL LIGATION - Family History Known Family History: Positive: None - Social History Occupation: Retired Lives: With Family Alcohol Use: None Substance Use Type: None Smoking Status (MU): Never Smoked Tobacco - Immunization History Most Recent Influenza Vaccination: 2015 Most Recent Tetanus Shot: UTD Most Recent Pneumonia Vaccination: 11/2013 Review of Systems Constitutional: Fatigue Skin: Negative Eyes: Negative ENT: Negative Respiratory: Shortness Of Breath, Cough Cardiovascular: Negative Gastrointestinal: Negative Genitourinary: Negative Motor: Negative Neurovascular: Negative Musculoskeletal: Negative Neurological: Negative Psychological: Negative Is Patient Immunocompromised?: No All Other Systems Reviewed And Are Negative: Yes Physical Exam Triage Information Reviewed: Yes Appearance: Ill-Appearing - looks chronically unwell Vital Signs: Initial Vital Signs Temp 96.7 F 11/03/17 15:33 Pulse 107 11/03/17 15:33 Resp 18 11/03/17 15:33 BP 176/86 11/03/17 15:33 Pulse Ox 98 11/03/17 15:33 Eyes: Positive: Conjunctiva Clear ENT: Positive: Pharynx normal Neck: Positive: Supple, Nontender, No Lymphadenopathy Respiratory: Positive: Decreased breath sounds - prior to neb, improved post xopenex use, Wheezing - some wheeze. Cardiovascular: Positive: RRR, No Murmur Musculoskeletal Exam: Normal Neurological: Positive: Alert, Muscle Tone Normal Psychological Exam: Other - mildly anxious Skin Exam: Normal UC Diagnostic Evaluation - Laboratory O2 Sat by Pulse Oximetry: 98 Re-Evaluation - Re-Evaluation First Eval Re-Evaluation Time: 17:10 - improved air entry Change: Improved Respiratory Course/Dx - Course Course Of Treatment: add omnicef to azithromycin, continue prednisone and inhalants. Needs follow up CT; this was reviewed with Mrs. Oviedo and we reviewed her options for follow up. - Differential Dx/Diagnosis Differential Diagnosis/HQI/PQRI: Asthma, Bronchitis, Lower Resp Infection Provider Diagnoses: right perihilar pneumonia Discharge - Sign-Out/Discharge Documenting (check all that apply): Patient Departure All imaging exams completed and their final reports reviewed: Yes - Discharge Plan Condition: Stable Disposition: HOME Prescriptions: Cefdinir cap (NF) [Cefdinir 300 MG cap (NF)] 300 mg PO BID #14 cap Patient Education Materials: Bacterial Pneumonia (ED) Referrals: Jonh Velásquez MD [Primary Care Provider] - Additional Instructions: As discussed the chest xray suggests a pneumonia in the right lung. IT IS ESSENTIAL THAT YOU HAVE A FOLLOW UP EVALUATION ON TUESDAY WITH YOUR APPEALS NURSE OR WITH DR. VELÁSQUEZ. IF YOU ARE NOT IMPROVING, A CT SCAN OF THE CHEST HAS BEEN ADVISED. IF YOU IMPROVE, IT IS STILL IMPORTANT THAT YOU HAVE FOLLOW UP IMAGING OF YOUR CHEST TO ENSURE THAT THE AFFECTED AREA IN THE RIGHT LUNG HAS IMPROVED. The follow up is important, because you could have enlarged lymph nodes in the chest, or a mass that needs to be assessed. IF YOU WORSEN OVERNIGHT, PLEASE GO TO THE EMERGENCY ROOM Complete your course of prednisone and azithromycin. I have added a second antibiotic for treatment. - Billing Disposition and Condition Condition: STABLE Disposition: Home
[2017-11-03] MEDS: Levalbuterol 0.63MG/3ML NEB* UNIT OF USE INH ONE (16:23)
--- NOTE | 2017-11-03 16:49 | RAD ---
Indication: Cough, shortness of breath. 2 views of the chest including dual energy PA views are reviewed. There is some right perihilar fullness and atelectasis. This may represent pneumonia although the obstructive mass in the right hilum is not excluded. Follow-up exam is suggested. IMPRESSION: Likely right perihilar infiltrate although an obstructive process is not excluded and follow-up exam after treatment is suggested. Alternatively CT could BE performed for further evaluation.
== END 2017-11-03 17:40 | disposition home or self-care (01) ==
LOC: UCCORT 15:31
DX: J18.9 Pneumonia, unspecified organism (principal); Z88.0 Allergy status to penicillin; Z88.1 Allergy status to other antibiotic agents; Z88.8 Allergy status to other drugs, medicaments and biological substances; J45.909 Unspecified asthma, uncomplicated
CPT/HCPCS: 71046; 93005; 99212; A9270-GY; G0463

== ENCOUNTER 2018-03-29 07:30 | Day surgery (SDC) | payer MEDICARE ==
[~2018-03-29 07:30] MED LIST: Acetaminophen TAB* 325 MG PO PRN; Buffered Lidocaine 1% SYRIN* 1 ML/SYRINGE INTRADERM ONE
[2018-03-29] MEDS ORDERED: Ketorolac 0.5% OPHTH (NF) 0.5 % 5 ML BTL ONE (09:18)
[2018-03-29] MEDS ORDERED: Lidocaine 1%* 5 ML VIAL ONE (09:18)
[2018-03-29] MEDS ORDERED: Neomycin/Polymy/Dex OPTH.SUSP* MAXITROL 0.1% 5 ML ONE (09:18)
[2018-03-29] MEDS ORDERED: Phenylephrine 2.5% OPTH.SOL* 2 ML BTL ONE (09:18)
[2018-03-29] MEDS ORDERED: acetaZOLAMIDE TAB* 250 MG ONE (09:18)
[2018-03-29] MEDS ORDERED: Povidone Iodine 5% OPTH* 30 ML BTL ONE (09:18)
[2018-03-29] MEDS ORDERED: Lidocaine 2% EPI 1:200000 MPF*10-20 ML VIAL ONE (09:18)
[2018-03-29] MEDS ORDERED: Cyclopentolate 1% OPTH.SOL* 2 ML BTL ONE (09:18)
[2018-03-29] MEDS ORDERED: Proparacaine 0.5% OPHTH.SOL* 15 ML BTL ONE (09:18)
[2018-03-29] MEDS ORDERED: Midazolam* 1 MG/ML 2 ML VIAL (2 MG) ONE (09:46)
[2018-03-29 10:31] VITALS: BP 141/56
--- NOTE | 2018-03-29 10:51 | OP ---
OPERATIVE NOTE: DATE OF OPERATION: 03/29/18 DATE OF : 42 SURGEON: Cristiano Levy M.D. PREOPERATIVE DIAGNOSIS: Cataract, right eye. POSTOPERATIVE DIAGNOSIS: Cataract, right eye. OPERATIVE PROCEDURE: Extracapsular cataract extraction with intraocular lens implant, right eye. PROCEDURE: The patient was brought to the operating room after being given 1/2% Alcaine with epineph rine drops in the preoperative area. The eye was prepped and draped in the usual sterile fashion. S terile drape and eyelid speculum were placed. Again, topical 1/2% Alcaine with epinephrine was given . A paracentesis incision was made at the 9 o'clock position with the No.75 blade. Clear cornea inc ision 2.2 x 2.2-mm was created at the 12 o'clock position starting at the anterior limbus using the 2 .2-mm keratome. The anterior chamber was irrigated with 0.4 mL of 1% non-preservative intracameral l idocaine and filled with DisCoVisc. A capsulorrhexis was completed using the cystotome and the Utrat a forceps. Hydrodissection was performed with balanced salt solution. The lens nucleus was removed w ith the phacoemulsification handpiece without incident. Cortex was removed with the irrigation-aspir ation handpiece. The capsular bag was re-inflated using DisCoVisc and an SN6AT6 of 16.5 implant was inserted with the shooter, oriented to the 21 degree meridian. Horizontal reference goldman made with the patient in the preoperative area in a seated position. The irrigation-aspiration handpiece was u sed to remove all residual DisCoVisc. The eye was refilled with balanced salt solution and the wound checked and found to be watertight. Topical Maxitrol drops were given. [id number]/[facility] #: [id number]
== END 2018-03-29 10:40 | disposition home or self-care (01) ==
LOC: OREAST 07:30
PROVIDERS: ATTEND Specialist
DX: H25.811 Combined forms of age-related cataract, right eye (principal); H04.123 Dry eye syndrome of bilateral lacrimal glands; H40.013 Open angle with borderline findings, low risk, bilateral; K21.9 Gastro-esophageal reflux disease without esophagitis; Z85.72 Personal history of non-Hodgkin lymphomas; J45.909 Unspecified asthma, uncomplicated
CPT/HCPCS: A9270-GY; J2250; V2787

== ENCOUNTER 2018-04-12 07:09 | Day surgery (SDC) | payer MEDICARE ==
[~2018-04-12 07:09] MED LIST changes: -Acetaminophen TAB* 325 MG PO PRN
[2018-04-12] MEDS ORDERED: Midazolam* 1 MG/ML 2 ML VIAL (2 MG) ONE (08:43)
[2018-04-12 09:24] VITALS: BP 133/56
[2018-04-12] MEDS ORDERED: Lidocaine 1%* 5 ML VIAL ONE (09:43)
[2018-04-12] MEDS ORDERED: Neomycin/Polymy/Dex OPTH.SUSP* MAXITROL 0.1% 5 ML ONE (09:43)
[2018-04-12] MEDS ORDERED: Lidocaine 2% EPI 1:200000 MPF*10-20 ML VIAL ONE (09:43)
[2018-04-12] MEDS ORDERED: Proparacaine 0.5% OPHTH.SOL* 15 ML BTL ONE (09:43)
[2018-04-12] MEDS ORDERED: Povidone Iodine 5% OPTH* 30 ML BTL ONE (09:43)
[2018-04-12] MEDS ORDERED: acetaZOLAMIDE TAB* 250 MG ONE (09:43)
[2018-04-12] MEDS ORDERED: Cyclopentolate 1% OPTH.SOL* 2 ML BTL ONE (09:43)
[2018-04-12] MEDS ORDERED: Ketorolac 0.5% OPHTH (NF) 0.5 % 5 ML BTL ONE (09:43)
--- NOTE | 2018-04-12 09:48 | OP ---
OPERATIVE NOTE: DATE OF OPERATION: 04/12/18 DATE OF : 42 SURGEON: Cristiano Levy M.D. PREOPERATIVE DIAGNOSIS: Cataract, left eye. POSTOPERATIVE DIAGNOSIS: Cataract, left eye. OPERATIVE PROCEDURE: Extracapsular cataract extraction with intraocular lens implant, left eye. PROCEDURE: The patient was brought to the operating room after being given 1/2% Alcaine with epineph rine drops in the preoperative area. The eye was prepped and draped in the usual sterile fashion. S terile drape and eyelid speculum were placed. Again, topical 1/2% Alcaine with epinephrine was given . A paracentesis incision was made at the 3 o'clock position with the No.75 blade. Clear cornea inc ision 2.2 x 2.2-mm was created at the 6 o'clock position starting at the anterior limbus using the 2. 2-mm keratome. The anterior chamber was irrigated with 0.4 mL of 1% non-preservative intracameral li docaine and filled with DisCoVisc. A capsulorrhexis was completed using the cystotome and the Utrata forceps. Hydrodissection was performed with balanced salt solution. The lens nucleus was removed wi th the Phacoemulsification handpiece without incident. Cortex was removed with the irrigation-aspira tion handpiece. The capsular bag was re-inflated using DisCoVisc and an SN6AT6 16 implant was insert ed with the shooter and oriented to the 171 degree [place]. Horizontal reference goldman were made wi th the patient in the seated position in the preoperative area. The irrigation-aspiration handpiece was used to remove all residual DisCoVisc. The eye was refilled with balanced salt solution and the wound checked and found to be watertight. Topical Maxitrol drops were given. [id number]/[facility] #: [id number]
== END 2018-04-12 09:29 | disposition home or self-care (01) ==
LOC: OREAST 07:09
PROVIDERS: ATTEND Specialist
DX: H25.812 Combined forms of age-related cataract, left eye (principal); H04.123 Dry eye syndrome of bilateral lacrimal glands; H40.013 Open angle with borderline findings, low risk, bilateral; Z88.0 Allergy status to penicillin; Z85.09 Personal history of malignant neoplasm of other digestive organs; I10 Essential (primary) hypertension; J45.909 Unspecified asthma, uncomplicated; K21.9 Gastro-esophageal reflux disease without esophagitis; Z85.72 Personal history of non-Hodgkin lymphomas
CPT/HCPCS: A9270-GY; J2250; V2787

== ENCOUNTER → 2018-06-08 05:31 | Day surgery (SDC) | payer MEDICARE ==
[~2018-06-08 05:31] MED LIST changes: +Acetaminophen TAB* 325 MG PO PRN; +Clindamycin 900 MG IVPREMIX(* 900 MG/50 ML SDV IV ONE; +DiMENhydriNATE IV* 50 MG/ML VIAL IV PUSH PRN; +Famotidine IV* 10 MG/ML 2 ML (20 mg) ONE; +HYDROcodone/ACETAMIN 5-325 MG* 1 TAB PO PRN; +Lactated Ringers 1000 ML Bag* 1,000 ML IV SCH; +Lidocaine 1% INJ* 10 MG/ML 30 ML SDV ONE; +Lidocaine 2% PF * 5 ML VIAL ONE; +Midazolam* 1 MG/ML 2 ML VIAL (2 MG) ONE; +Naloxone* 0.4 MG/ML 1 ML VIAL IV PRN; +Ondansetron INJ* 2 MG/ML VIAL IV PRN; +Ondansetron INJ* 2 MG/ML VIAL ONE; +Propofol* 10 MG/ML 20 ML BTL ONE; +diPHENhydraMINE IV* 50 MG/ML 1 ml VIAL (BENADRYL) IV PRN; +fentaNYL* 50 MCG/ML 2 ML VIAL (100 MCG VIAL) IV PRN; +fentaNYL* 50 MCG/ML 2 ML VIAL (100 MCG VIAL) ONE
[2018-06-08 09:27] VITALS: BP 130/73
--- NOTE | 2018-06-08 22:17 | OP ---
CC: Dr. Montemayor; Dr. Gallardo * DATE OF OPERATION: 06/08/18 - [facility] DATE OF : 42 SURGEON: Mitul Lobo MD. LOCKSTITCH COLLAR SETTER: None. ANESTHESIOLOGIST: Dr. Wallace. ANESTHESIA: LMAC anesthesia. PRE-OP DIAGNOSIS: Lymphoma. POST-OP DIAGNOSIS: Lymphoma. OPERATIVE PROCEDURE: Placement of right subclavian 8-Telugu PowerPort. DESCRIPTION OF PROCEDURE: The patient was supine on the operating table. After adequate intravenous sedation, compression stockings, Constanza-Hugger warmer, and intravenous antibiotics, the right chest and neck region were prepped with antiseptic, draped in a sterile fashion. Local infiltrative anesthesia was administered and an approximately 3 cm subclavian incision was created and inferior pocket was completed. Subclavian venipuncture was carried out without difficulty. Guidewire passed under fluoroscopic guidance. Catheter was passed through the peel- away introducer, measured and cut at 27 cm, attached to the port, which was sutured in the pocket. Pocket was closed with 3-0 and 5-0 Vicryl, followed by Steri-Strips. The port was accessed. There was good blood return. It was flushed with saline solution and heparinized solution followed by Tegaderm dressing. She tolerated the procedure well, was brought to recovery in good condition. COMPLICATIONS: There were no complications. DRAINS: No drains. SPECIMEN: No pathologic specimen. COUNTS: Sponge and instrument counts correct. ESTIMATED BLOOD LOSS: 10 mL. [id number]/[facility] #: [id number] [facility]
== END | disposition home or self-care (01) ==
LOC: OR 05:31
PROVIDERS: ATTEND Surgery
DX: C83.00 Small cell B-cell lymphoma, unspecified site (principal); C82.94 Follicular lymphoma, unspecified, lymph nodes of axilla and upper limb; Z85.42 Personal history of malignant neoplasm of other parts of uterus; I10 Essential (primary) hypertension; K21.9 Gastro-esophageal reflux disease without esophagitis; K31.84 Gastroparesis; J45.909 Unspecified asthma, uncomplicated; K75.9 Inflammatory liver disease, unspecified; R06.02 Shortness of breath; T45.1X5A Adverse effect of antineoplastic and immunosuppressive drugs, initial encounter; Y92.230 Patient room in hospital as the place of occurrence of the external cause; Z87.891 Personal history of nicotine dependence
CPT/HCPCS: 71045; 76000; C1788; J1642; J2250; J2405; J2704; J3010

== ENCOUNTER 2018-11-12 09:35 | Emergency (ER) | payer MEDICARE ==
--- OUTSIDE RECORDS SUMMARY | 2018-11-12 09:55 | XMS REPORT | Continuity of Care Document ---
:1940 External Reference #:[id number] Author Name Alba ANTONIA Mcgovern Address [address] [place] [address] Care Team Providers Name Role Phone Jonh Gallardo M.D. Care Team Information Airline Lounge Receptionist [phone] Cristian Abreu M.D. - Allergy & Care Team Information Airline Lounge Receptionist Immunology Problems Active Problems Provider Date Uncomplicated moderate persistent asthma ANTONIA Encarnacion Onset: 2017 Mild persistent asthma Cristian Abreu M.D. Onset: 07/28/2016 Body mass index 30+ - obesity Cristian Abreu M.D. Onset: 07/28/2016 Uncomplicated moderate persistent asthma Haylee ANTONIA Nathan Onset: 2015 Allergic asthma without status asthmaticus FABRICIO Cramer Onset: 07/2013 Allergic rhinitis due to pollen FABRICIO Cramer Onset: 06/12/2013 Allergic rhinitis FABRICIO Cramer Onset: 06/12/2013 Acute maxillary sinusitis FABRICIO Cramer Onset: 01/23/2013 Social History Type Date Description Comments Sex Unknown ETOH Use Denies alcohol use Tobacco Use Start: Unknown Patient has never smoked Recreational Drug Use Denies Drug Use Smoking Status Reviewed: 03/24/17 Patient has never smoked Allergies, Adverse Reactions, Alerts Active Allergies Reaction Severity Comments Date Amoxicillin Urticaria 08/07/2001 Tetracycline headache 07/28/2016 Adhesives (Tape) reddens skin 09/28/2017 Medications Active Medications SIG Qnty Indications Ordering Provider Date Pulmicort Flexhaler inhale 2 puff 1units J30.1 Alba Mcgovern, 10/04/2018 twice daily. MALTED MILK MASHER-C 180mcg/Act Aerosol rinse mouth after each use. Proair HFA 2 puffs q4 hours 1units Alba Mcgovern, 06/22/2016 108(90Base) when needed. MALTED MILK MASHER-C mcg/Act Aerosol pre-exercise 2 puffs Flovent HFA inhale 2 puffs by 1units J45.40 Alba Mcgovern, 02/25/2015 110mcg/Act mouth twice a day MALTED MILK MASHER-C Aerosol Omeprazole twice a day Unknown 40mg Capsules DR Sucralfate once a day Unknown 1gm Tablets Vitamin B12 once a day Unknown 100mcg Tablets Fish Oil once a day Unknown 600mg Capsules Nystatin Morgan To Affected Unknown [id number]/GM Areas Under Cream Breasts tid prn Metamucil Fiber once a day. Unknown 51.7% Packet Domperidone once a day Unknown 10mg Fluticasone shake liquid and 48gm Alba Mcgovern, Propionate use 1 spray in MALTED MILK MASHER-C 50mcg/Act each nostril Suspension twice daily Vitamin D3 1 by mouth every Unknown 1000Unit day Capsules Vitamin C TR 1 by mouth every Unknown 1000mg day Tablets ER Medications Administered in Office Medication SIG Qnty Indications Ordering Provider Date Injection Allergy Injection 09/26/2018 Injection Injection Allergy Injection 09/12/2018 Injection Injection Allergy Injection 08/30/2018 Injection Injection Allergy Injection 08/17/2018 Injection Injection Allergy Injection 08/01/2018 Injection Injection Allergy Injection 07/20/2018 Injection Injection Allergy Injection 07/04/2018 Injection Injection Allergy Injection 06/20/2018 Injection Injection Allergy Injection 05/30/2018 Injection Injection Allergy Injection 05/16/2018 Injection Injection Allergy Injection 05/04/2018 Injection Injection Allergy Injection 03/15/2018 Injection Injection Allergy Injection 02/15/2018 Injection Injection Allergy Injection 02/01/2018 Injection Injection Allergy Injection 01/17/2018 Injection Injection Allergy Injection 12/20/2017 Injection Injection Allergy Injection 12/07/2017 Injection Injection Allergy Injection 11/29/2017 Injection Injection Allergy Injection 10/11/2017 Injection Injection Allergy Injection 09/28/2017 Injection Injection Allergy Injection 09/07/2017 Injection Injection Allergy Injection 08/23/2017 Injection Injection Cristian Abreu M.D. 08/09/2017 Injection Injection Allergy Injection 08/09/2017 Injection Injection Allergy Injection 07/26/2017 Injection Injection Allergy Injection 07/05/2017 Injection Injection Allergy Injection 06/21/2017 Injection Injection Allergy Injection 06/09/2017 Injection Injection Allergy Injection 05/26/2017 Injection Injection Allergy Injection 04/19/2017 Injection Injection Allergy Injection 03/24/2017 Injection Injection Allergy Injection 02/15/2017 Injection Injection Allergy Injection 01/13/2017 Injection Injection Allergy Injection 12/14/2016 Injection Injection Allergy Injection 11/30/2016 Injection Injection Allergy Injection 11/09/2016 Injection Injection Allergy Injection 10/26/2016 Injection Injection Allergy Injection 10/05/2016 Injection Injection Allergy Injection 09/21/2016 Injection Injection Allergy Injection 09/07/2016 Injection Injection Allergy Injection 08/26/2016 Injection Injection Allergy Injection 08/12/2016 Injection Injection Allergy Injection 07/28/2016 Injection Injection Allergy Injection 07/15/2016 Injection Injection Cristian Abreu M.D. 07/06/2016 Injection Injection Allergy Injection 07/06/2016 Injection Injection Allergy Injection 06/22/2016 Injection Injection Allergy Injection 06/08/2016 Injection Injection Allergy Injection 05/25/2016 Injection Injection Allergy Injection 05/13/2016 Injection Injection Allergy Injection 04/13/2016 Injection Injection Cristian Abreu M.D. 03/09/2016 Injection Injection Allergy Injection 03/09/2016 Injection Injection Allergy Injection 02/12/2016 Injection Injection Allergy Injection 01/08/2016 Injection Injection Allergy Injection 12/23/2015 Injection Injection Allergy Injection 11/27/2015 Injection Injection Allergy Injection 11/11/2015 Injection Injection Allergy Injection 10/28/2015 Injection Injection Allergy Injection 10/07/2015 Injection Injection Allergy Injection 09/16/2015 Injection Injection Allergy Injection 08/26/2015 Injection Injection Allergy Injection 08/05/2015 Injection Injection Allergy Injection 07/22/2015 Injection Injection Allergy Injection 07/10/2015 Injection Injection Allergy Injection 06/24/2015 Injection Injection Allergy Injection 06/03/2015 Injection Injection Allergy Injection 05/20/2015 Injection Injection Allergy Injection 03/27/2015 Injection Injection Allergy Injection 02/25/2015 Injection Injection Allergy Injection 01/28/2015 Injection Injection Allergy Injection 12/31/2014 Injection Injection Allergy Injection 12/24/2014 Injection Injection Allergy Injection 12/17/2014 Injection Injection Allergy Injection 12/10/2014 Injection Injection Allergy Injection 12/05/2014 Injection Injection Allergy Injection 11/12/2014 Injection Injection Allergy Injection 10/22/2014 Injection Injection Allergy Injection 09/24/2014 Injection Injection Allergy Injection 07/30/2014 Injection Injection Allergy Injection 07/11/2014 Injection Injection Allergy Injection 06/25/2014 Injection Injection Allergy Injection 06/11/2014 Injection Injection Allergy Injection 06/04/2014 Injection Injection Allergy Injection 04/23/2014 Injection Injection Allergy Injection 03/19/2014 Injection Injection Allergy Injection 02/12/2014 Injection Injection Allergy Injection 01/08/2014 Injection Injection Allergy Injection 12/11/2013 Injection Injection Jj Monson M.D. 11/27/2013 Injection Injection Allergy Injection 11/27/2013 Injection Injection Jj Monson M.D. 11/13/2013 Injection Injection Allergy Injection 11/13/2013 Injection Injection Jj Monson M.D. 10/23/2013 Injection Injection Allergy Injection 10/23/2013 Injection Injection Jj Monson M.D. 10/09/2013 Injection Injection Allergy Injection 10/09/2013 Injection Injection Allergy Injection 09/25/2013 Injection Injection Jj Monson M.D. 09/11/2013 Injection Injection Allergy Injection 09/11/2013 Injection Injection Jj Monson M.D. 08/28/2013 Injection Injection Allergy Injection 08/28/2013 Injection Injection Jj Monson M.D. 08/14/2013 Injection Injection Allergy Injection 08/14/2013 Injection Injection Allergy Injection 07/31/2013 Injection Injection Allergy Injection 07/17/2013 Injection Injection Jj Monson M.D. 06/26/2013 Injection Injection Allergy Injection 06/26/2013 Injection Injection Jj Monson M.D. 06/12/2013 Injection Injection Allergy Injection 06/12/2013 Injection Injection Jj Monson M.D. 05/29/2013 Injection Injection Allergy Injection 05/29/2013 Injection Injection Jj Monson M.D. 05/01/2013 Injection Injection Allergy Injection 05/01/2013 Injection Injection Allergy Injection 04/05/2013 Injection Injection Jj ErmiasDeisy aparicio 03/08/2013 Injection Injection Allergy Injection 03/08/2013 Injection Injection Jj ErmiasDeisy aparicio 02/08/2013 Injection Injection Allergy Injection 02/08/2013 Injection Injection Jj ErmiasDeisy aparicio 12/26/2012 Injection Injection Allergy Injection 12/26/2012 Injection Injection Jj Deisy Monson 11/30/2012 Injection Injection Allergy Injection 11/30/2012 Injection Injection Allergy Injection 10/24/2012 Injection Injection Jj ErmiasDeisy aparicio 10/12/2012 Injection Injection Allergy Injection 10/12/2012 Injection Injection Jj Deisy Monson 09/26/2012 Injection Injection Allergy Injection 09/26/2012 Injection Injection Jj ErmiasDeisy aparicio 09/12/2012 Injection Injection Allergy Injection 09/12/2012 Injection Injection Jj Deisy Monson 08/29/2012 Injection Injection Allergy Injection 08/29/2012 Injection Injection Jj Deisy Monson 08/03/2012 Injection Injection Allergy Injection 08/03/2012 Injection Injection Tamanna Chi M.D. 07/18/2012 Injection Injection Jj ErmiasDeisy aparicio 07/18/2012 Injection Injection Allergy Injection 07/18/2012 Injection Injection Jj ErmiasDeisy aparicio 07/04/2012 Injection Injection Allergy Injection 07/04/2012 Injection Injection Jj ErmiasDeisy aparicio 06/20/2012 Injection Injection Allergy Injection 06/20/2012 Injection Injection Jj Deisy Monson 06/06/2012 Injection Injection Allergy Injection 06/06/2012 Injection Injection Jj ErmiasDeisy aparicio 05/23/2012 Injection Injection Allergy Injection 05/23/2012 Injection Injection Jj ErmiasDeisy aparicio 05/09/2012 Injection Injection Allergy Injection 05/09/2012 Injection Injection Jj ErmiasDeisy aparicio 04/18/2012 Injection Injection Jj ErmiasDeisy aparicio 03/21/2012 Injection Injection Jj ErmiasDeisy aparicio 02/22/2012 Injection Injection Jj Deisy Monson 01/18/2012 Injection Injection Jj ErmiasDeisy aparicio 11/23/2011 Injection Injection Jj Ermias, M.DNito 11/02/2011 Injection Injection Jj Ermias, M.DNito 10/19/2011 Injection Injection Jj Ermias, M.DNito 09/28/2011 Injection Injection Jj Ermias, M.DNito 09/14/2011 Injection Injection Jj Ermias, M.DNito 08/31/2011 Injection Injection Jj Ermias, M.DNito 08/17/2011 Injection Injection Jj Ermias, M.DNito 08/03/2011 Injection Injection Jj Ermias, M.DNito 07/22/2011 Injection Injection Jj Ermias, M.DNito 07/06/2011 Injection Injection Jj Ermias, M.DNito 06/24/2011 Injection Injection Jj Ermias, M.DNito 06/08/2011 Injection Injection Jj Ermias, M.DNito 05/27/2011 Injection Injection Jj Ermias, Chiquis.DNito 05/11/2011 Injection Celestone/Cortisone Jj Ermias, M.DNito 05/04/2011 [id number] 1 cc Injection Injection Jj Ermias, M.DNito 04/20/2011 Injection Injection Jj Ermias, Chiquis.DNito 04/06/2011 Injection Injection Jj Ermias, M.DNito 03/09/2011 Injection Injection Jj Ermias, Chiquis.DNito 02/09/2011 Injection Injection Jj Ermias, Chiquis.DNito 01/12/2011 Injection Injection Jj Ermias, M.DNito 12/17/2010 Injection Injection Jj Ermias, M.DNito 11/26/2010 Injection Injection Jj Ermias, M.DNito 11/10/2010 Injection Injection Jj Ermias, M.DNito 10/27/2010 Injection Injection Jj Ermias, M.DNito 10/13/2010 Injection Injection Jj Ermias, M.DNito 09/22/2010 Injection Injection Jj Ermias, Chiquis.DNito 09/10/2010 Injection Injection Jj Ermias, M.DNito 08/25/2010 Injection Injection Jj Ermias, M.DNito 08/11/2010 Injection Injection Jj Ermias, MNitoD. 07/28/2010 Injection Injection Jj Ermias, M.DNito 06/25/2010 Injection Celestone/Cortisone Jj Ermias, MNitoDNito 06/18/2010 [id number] 1 cc Injection Injection Jj Ermias, MNitoDNito 06/02/2010 Injection Injection Jj Ermias, MNitoDNito 05/19/2010 Injection Injection Jj Ermias, JosefinaDNito 05/05/2010 Injection Injection Jj Ermias, JosefinaDNito 04/21/2010 Injection Injection Jj Ermias, JosefinaDNito 03/19/2010 Injection Injection Jj Ermias, Deisy 02/12/2010 Injection Injection Jj Ermias, Deisy 01/20/2010 Injection Injection Jj Ermias, Deisy 12/25/2009 Injection Injection Jj Ermias, Deisy 11/27/2009 Injection Injection Tamanna Chi M.D. 11/11/2009 Injection Injection Jj Ermias, Deisy 10/28/2009 Injection Injection Jj Ermias, Deisy 10/16/2009 Injection Injection Jj Ermias, Deisy 09/30/2009 Injection Injection Jj Ermias, Deisy 09/16/2009 Injection Injection Jj Ermias, Deisy 08/26/2009 Injection Injection Jj Ermias, Deisy 08/12/2009 Injection Injection Jj Ermias, Deisy 07/22/2009 Injection Injection Jj Ermias, Deisy 07/01/2009 Injection Injection Jj Ermias, JosefinaDNito 06/17/2009 Injection Injection Jj Ermias, JosefinaDNito 06/03/2009 Injection Injection Jj Ermias, Deisy 05/20/2009 Injection Injection Jj Ermias, JosefinaDNito 05/06/2009 Injection Injection Jj Ermias, JosefinaDNito 04/08/2009 Injection Injection Tamanna Chi M.D. 03/11/2009 Injection Injection Jj Ermias, Deisy 02/11/2009 Injection Injection Jj Ermias, Deisy 01/16/2009 Injection Injection Christopher A. House, M.D. 12/17/2008 Injection Injection Jj Ermias, Deisy 11/19/2008 Injection Injection Jj Ermias, MNitoDNito 10/29/2008 Injection Injection Jj Ermias, MNitoDNito 10/15/2008 Injection Injection Jj Ermias, JosefinaDNito 10/01/2008 Injection Injection Jj Ermias, Deisy 09/10/2008 Injection Injection Jj Ermias, JosefinaDNito 08/27/2008 Injection Injection Jj Ermias, MNitoDNito 08/13/2008 Injection Injection Jj Ermias, MNitoDNito 08/01/2008 Injection Injection Jj Ermias, Deisy 07/18/2008 Injection Injection Jj Ermias, JosefinaDNito 07/04/2008 Injection Injection Jj Ermias, JosefinaDNito 06/25/2008 Injection Injection Jj Ermias, Deisy 06/13/2008 Injection Injection Jj Ermias, Deisy 05/30/2008 Injection Injection Jj Ermias, Chiquis.DNito 05/21/2008 Injection Injection Jj Ermias, Chiquis.DNito 04/23/2008 Injection Injection Jj Ermias, JosefinaDNito 03/26/2008 Injection Injection Jj Ermias, JosefinaDNito 02/27/2008 Injection Injection Jj Ermias, Deisy 01/25/2008 Injection Injection Jj Ermias, Deisy 12/26/2007 Injection Injection Jj Ermias, JosefinaDNito 11/21/2007 Injection Injection Jj Ermias, M.DNito 11/07/2007 Injection Injection Jj Ermias, Chiquis.DNito 10/24/2007 Injection Injection Jj Ermias, Chiquis.DNito 10/10/2007 Injection Injection Jj Ermias, M.DNito 09/26/2007 Injection Injection Jj Ermias, Chiquis.DNito 09/14/2007 Injection Injection Jj Ermias, Chiquis.DNito 08/22/2007 Injection Injection Jj Ermias, JosefinaDNito 08/08/2007 Injection Injection Jj Ermias, M.DNito 07/27/2007 Injection Injection Jj Ermias, M.DNito 06/20/2007 Injection Injection Jj Ermias, M.DNito 05/30/2007 Injection Injection Jj Ermias, M.DNito 05/09/2007 Injection Injection Jj Ermias, M.DNito 04/25/2007 Injection Injection Jj Ermias, M.DNito 03/28/2007 Injection Injection Jj Ermias, M.DNito 03/07/2007 Injection Injection Jj Ermias, M.DNito 02/09/2007 Injection Injection Jj Ermias, M.DNito 01/17/2007 Injection Injection Jj Ermias, M.DNito 01/03/2007 Injection Injection Jj Ermias, M.DNito 12/22/2006 Injection Injection Jj Ermias, M.DNito 12/06/2006 Injection Injection Jj Ermias, M.DNito 11/24/2006 Injection Injection Jj Ermias, M.DNito 11/08/2006 Injection Injection Jj Ermias, Chiquis.DNito 10/25/2006 Injection Injection Jj Ermias, M.DNito 10/11/2006 Injection Injection Jj Ermias, M.DNito 09/27/2006 Injection Injection Jj Ermias, Chiquis.DNito 09/13/2006 Injection Injection Jj Ermias, M.DNito 08/30/2006 Injection Injection Jj Ermias, M.DNito 08/16/2006 Injection Injection Jj Ermias, M.DNito 08/02/2006 Injection Injection Jj Ermias, M.DNito 07/21/2006 Injection Injection Jj Ermias, M.DNito 06/28/2006 Injection Injection Jj Ermias, M.DNito 06/14/2006 Injection Injection Jj Ermias, M.DNito 05/31/2006 Injection Injection Jj Ermias, M.DNito 05/19/2006 Injection Injection Jj Ermias, M.DNiot 05/05/2006 Injection Injection Jj Ermias, M.DNito 04/19/2006 Injection Injection Jj Ermias, M.DNito 03/31/2006 Injection Injection Jj Ermias, M.DNito 03/17/2006 Injection Injection Jj Ermias, M.DNito 03/03/2006 Injection Injection Jj Ermias, M.DNito 02/15/2006 Injection Injection Jj Ermias, M.DNito 02/01/2006 Injection Injection Jj Ermias, M.DNito 01/25/2006 Injection Injection Jj Ermias, M.DNito 01/06/2006 Injection Injection Jj Ermias, M.DNito 11/30/2005 Injection Injection Jj Ermias, M.DNito 11/16/2005 Injection Injection Jj Ermias, M.DNito 11/04/2005 Injection Injection Jj Ermias, M.DNito 09/28/2005 Injection Injection Jj Ermias, M.DNito 09/21/2005 Injection Injection Jj Ermias, M.DNito 09/07/2005 Injection Injection Jj Ermisa, M.DNito 08/24/2005 Injection Injection Jj Ermias, M.DNito 08/03/2005 Injection Injection Jj Ermias, M.DNito 07/13/2005 Injection Injection Jj Ermias, Chiquis.DNito 06/24/2005 Injection Injection Jj Ermias, M.DNito 06/01/2005 Injection Injection Jj Ermias, M.DNito 05/18/2005 Injection Injection Jj Ermias, M.DNito 04/20/2005 Injection Injection Jj Ermias, M.DNito 03/23/2005 Injection Injection Jj Ermias, M.DNito 02/23/2005 Injection Injection Jj Ermias, M.DNito 01/19/2005 Injection Injection Jj Ermias, M.DNito 12/29/2004 Injection Injection Jj Ermias, M.DNito 12/17/2004 Injection Injection Jj Ermias, M.DNito 11/26/2004 Injection Injection Jj Ermias, M.DNito 11/12/2004 Injection Injection Jj Ermias, M.DNito 10/27/2004 Injection Injection Jj Ermias, M.DNito 10/08/2004 Injection Injection Jj Ermias, M.DNito 09/24/2004 Injection Injection Jj Ermias, M.DNito 09/10/2004 Injection Injection Jj Ermias, M.DNito 08/20/2004 Injection Injection Jj Ermias, M.DNito 08/06/2004 Injection Injection Jj Ermias, M.DNito 07/23/2004 Injection Injection Jj Ermias, M.DNito 07/09/2004 Injection Injection Jj Ermias, M.D. 06/25/2004 Injection Injection Jj Ermias, M.DNito 06/11/2004 Injection Injection Jj Ermias, M.DNito 05/28/2004 Injection Injection Jj Ermias, M.DNito 05/14/2004 Injection Injection Jj Ermias, M.DNito 04/30/2004 Injection Injection Jj Ermias, M.DNito 04/14/2004 Injection Injection Jj Ermias, M.DNito 03/17/2004 Injection Injection Jj Ermias, M.DNito 02/18/2004 Injection Injection Jj Ermias, M.DNito 01/23/2004 Injection Injection Jj Ermias, M.DNito 12/26/2003 Injection Injection Jj Ermias, M.DNito 11/28/2003 Injection Injection Jj Ermias, M.DNito 11/12/2003 Injection Injection Jj Ermias, M.DNito 10/31/2003 Injection Injection Jj Ermias, M.DNito 10/17/2003 Injection Injection Jj Ermias, M.DNito 09/26/2003 Injection Injection Jj Ermias, M.DNito 09/19/2003 Injection Injection Jj Ermias, M.DNito 09/05/2003 Injection Injection Jj Ermias, M.DNito 08/22/2003 Injection Injection Jj Ermias, M.DNito 08/08/2003 Injection Injection Jj Ermias, M.DNito 07/25/2003 Injection Injection Jj Ermias, M.DNito 07/11/2003 Injection Injection Jj Ermias, M.DNito 06/27/2003 Injection Injection Jj Ermias, M.DNito 06/13/2003 Injection Injection Jj Ermias, M.DNito 05/30/2003 Injection Injection Jj Ermias, M.DNito 05/16/2003 Injection Injection Jj Ermias, M.DNito 04/25/2003 Injection Injection Jj Ermias, M.DNito 04/18/2003 Injection Injection Jj Monson M.D. 04/04/2003 Injection Injection Jj Monson M.D. 03/21/2003 Injection Injection Jj Monson M.D. 03/07/2003 Injection Injection Jj Monson M.D. 02/21/2003 Injection Injection Jj Monson M.D. 01/29/2003 Injection Injection Jj Monson M.D. 01/15/2003 Injection Injection Jj Monson M.D. 01/01/2003 Injection Injection Jj Monson M.D. 12/20/2002 Injection Injection Jj Monson M.D. 12/06/2002 Injection Injection Jj Monson M.D. 11/22/2002 Injection Injection Jj Monson M.D. 11/08/2002 Injection Injection Jj Monson M.D. 10/25/2002 Injection Injection Jj Monson M.D. 10/11/2002 Injection Injection Jj Monson M.D. 09/25/2002 Injection Injection Jj Monson M.D. 09/06/2002 Injection Immunizations CPT Code Status Date Vaccine Lot # [id number] Given Unknown Pneumococcal Vaccine 63708 Given Unknown Pneumococcal Vaccine 30717 Given Unknown Pneumococcal Vaccine 16981 Given Unknown Influenza Vaccine 07458 Given Unknown Influenza Vaccine 78768 Given Unknown Influenza Vaccine Vital Signs Date Vital Result Comment 10/04/2018 9:08am Height 62 inches 5'2" Weight 194.00 lb Weight 87.998 kg Respiratory Rate 20 /min Heart Rate 88 /min O2 % BldC Oximetry 95 % BP Systolic 127 mmHg BP Diastolic 53 mmHg Asthma Control Test 20 BMI (Body Mass Index) 35.5 kg/m2 11/01/2017 4:30pm Height 62 inches 5'2" Weight 195.00 lb Weight 88.452 kg Respiratory Rate 20 /min Heart Rate 97 /min 99 first take Body Temperature 100.0 F O2 % BldC Oximetry 95 % BP Systolic 138 mmHg 163/87 first BP Diastolic 76 mmHg 163/87 first Asthma Control Test 17 BMI (Body Mass Index) 35.7 kg/m2 Results Description No Information Available Procedures Date Code Description Status 09/26/2018 37203 Injection Completed 09/12/2018 16394 Injection Completed 08/30/2018 14357 Injection Completed 08/17/2018 32311 Injection Completed 08/01/2018 40420 Injection Completed 07/20/2018 91289 Injection Completed 07/06/2018 52233 Extract 1-10 Completed 07/04/2018 66836 Injection Completed 06/20/2018 65317 Injection Completed 05/30/2018 41933 Injection Completed 05/16/2018 45462 Injection Completed 05/04/2018 91855 Injection Completed Medical Devices Description No Information Available Encounters Type Date Location Provider Dx Diagnosis Office Visit 10/04/2018 [facility] Alba Ularavind, J30.1 Allergic rhinitis 9:00a MALTED MILK MASHER-C due to pollen J30.2 Other seasonal allergic rhinitis J30.81 Allergic rhinitis due to animal (cat) (dog) hair and dander J30.89 Other allergic rhinitis Assessments Date Code Description Provider 10/04/2018 J30.1 Allergic rhinitis due to pollen Alba Uldrich, MALTED MILK MASHER-C 10/04/2018 J30.2 Other seasonal allergic rhinitis Alba Uldrich, MALTED MILK MASHER-C 10/04/2018 J30.81 Allergic rhinitis due to animal (cat) Alba Uldrich, MALTED MILK MASHER -C (dog) hair and dander 10/04/2018 J30.89 Other allergic rhinitis Alba Uldrich, MALTED MILK MASHER-C 09/26/2018 J30.1 Allergic rhinitis due to pollen Cristian Abreu M.D. 09/26/2018 J30.1 Allergic rhinitis due to pollen Allergy Injection 09/26/2018 J30.2 Other seasonal allergic rhinitis Cristian Abreu M.D. 09/26/2018 J30.2 Other seasonal allergic rhinitis Allergy Injection 09/26/2018 J30.81 Allergic rhinitis due to animal (cat) Cristian Abreu M.D. (dog) hair and dander 09/26/2018 J30.81 Allergic rhinitis due to animal (cat) Allergy Injection (dog) hair and dander 09/26/2018 J30.89 Other allergic rhinitis Cristian Abreu M.D. 09/26/2018 J30.89 Other allergic rhinitis Allergy Injection 09/12/2018 J30.1 Allergic rhinitis due to pollen Cristian Abreu M.D. 09/12/2018 J30.1 Allergic rhinitis due to pollen Allergy Injection 09/12/2018 J30.2 Other seasonal allergic rhinitis Cristian Abreu M.D. 09/12/2018 J30.2 Other seasonal allergic rhinitis Allergy Injection 09/12/2018 J30.81 Allergic rhinitis due to animal (cat) Cristian Abreu M.D. (dog) hair and dander 09/12/2018 J30.81 Allergic rhinitis due to animal (cat) Allergy Injection (dog) hair and dander 09/12/2018 J30.89 Other allergic rhinitis Cristian Abreu M.D. 09/12/2018 J30.89 Other allergic rhinitis Allergy Injection 08/30/2018 J30.1 Allergic rhinitis due to pollen Cristian Abreu M.D. 08/30/2018 J30.1 Allergic rhinitis due to pollen Allergy Injection 08/30/2018 J30.2 Other seasonal allergic rhinitis Cristian Abreu M.D. 08/30/2018 J30.2 Other seasonal allergic rhinitis Allergy Injection 08/30/2018 J30.81 Allergic rhinitis due to animal (cat) Cristian Abreu M.D. (dog) hair and dander 08/30/2018 J30.81 Allergic rhinitis due to animal (cat) Allergy Injection (dog) hair and dander 08/30/2018 J30.89 Other allergic rhinitis Cristian Abreu M.D. 08/30/2018 J30.89 Other allergic rhinitis Allergy Injection 08/17/2018 J30.1 Allergic rhinitis due to pollen Cristian Abreu M.D. 08/17/2018 J30.1 Allergic rhinitis due to pollen Allergy Injection 08/17/2018 J30.2 Other seasonal allergic rhinitis Cristian Abreu M.D. 08/17/2018 J30.2 Other seasonal allergic rhinitis Allergy Injection 08/17/2018 J30.81 Allergic rhinitis due to animal (cat) Cristian Abreu M.D. (dog) hair and dander 08/17/2018 J30.81 Allergic rhinitis due to animal (cat) Allergy Injection (dog) hair and dander 08/17/2018 J30.89 Other allergic rhinitis Cristian Abreu M.D. 08/17/2018 J30.89 Other allergic rhinitis Allergy Injection 08/01/2018 J30.1 Allergic rhinitis due to pollen Cristian Abreu M.D. 08/01/2018 J30.1 Allergic rhinitis due to pollen Allergy Injection 08/01/2018 J30.2 Other seasonal allergic rhinitis Cristian Abreu M.D. 08/01/2018 J30.2 Other seasonal allergic rhinitis Allergy Injection 08/01/2018 J30.81 Allergic rhinitis due to animal (cat) Cristian Abreu M.D. (dog) hair and dander 08/01/2018 J30.81 Allergic rhinitis due to animal (cat) Allergy Injection (dog) hair and dander 08/01/2018 J30.89 Other allergic rhinitis Cristian Abreu M.D. 08/01/2018 J30.89 Other allergic rhinitis Allergy Injection 07/20/2018 J30.1 Allergic rhinitis due to pollen Cristian Abreu M.D. 07/20/2018 J30.1 Allergic rhinitis due to pollen Allergy Injection 07/20/2018 J30.2 Other seasonal allergic rhinitis Cristian Abreu M.D. 07/20/2018 J30.2 Other seasonal allergic rhinitis Allergy Injection 07/20/2018 J30.81 Allergic rhinitis due to animal (cat) Cristian Arbeu M.D. (dog) hair and dander 07/20/2018 J30.81 Allergic rhinitis due to animal (cat) Allergy Injection (dog) hair and dander 07/20/2018 J30.89 Other allergic rhinitis Cristian Abreu M.D. 07/20/2018 J30.89 Other allergic rhinitis Allergy Injection 07/06/2018 J30.1 Allergic rhinitis due to pollen Cristian Abreu M.D. 07/06/2018 J30.1 Allergic rhinitis due to pollen Lab 07/06/2018 J30.2 Other seasonal allergic rhinitis Cristian Abreu M.D. 07/06/2018 J30.2 Other seasonal allergic rhinitis Lab 07/06/2018 J30.81 Allergic rhinitis due to animal (cat) Cristian Abreu M.D. (dog) hair and dander 07/06/2018 J30.81 Allergic rhinitis due to animal (cat) Lab (dog) hair and dander 07/06/2018 J30.89 Other allergic rhinitis Cristian Abreu M.D. 07/06/2018 J30.89 Other allergic rhinitis Lab 07/04/2018 J30.1 Allergic rhinitis due to pollen Cristian Abreu M.D. 07/04/2018 J30.1 Allergic rhinitis due to pollen Allergy Injection 07/04/2018 J30.2 Other seasonal allergic rhinitis Cristian Abreu M.D. 07/04/2018 J30.2 Other seasonal allergic rhinitis Allergy Injection 07/04/2018 J30.81 Allergic rhinitis due to animal (cat) Cristian Abreu M.D. (dog) hair and dander 07/04/2018 J30.81 Allergic rhinitis due to animal (cat) Allergy Injection (dog) hair and dander 07/04/2018 J30.89 Other allergic rhinitis Cristian Abreu M.D. 07/04/2018 J30.89 Other allergic rhinitis Allergy Injection 06/20/2018 J30.1 Allergic rhinitis due to pollen Cristian Abreu M.D. 06/20/2018 J30.1 Allergic rhinitis due to pollen Allergy Injection 06/20/2018 J30.2 Other seasonal allergic rhinitis Cristian Abreu M.D. 06/20/2018 J30.2 Other seasonal allergic rhinitis Allergy Injection 06/20/2018 J30.81 Allergic rhinitis due to animal (cat) Cristian Abreu M.D. (dog) hair and dander 06/20/2018 J30.81 Allergic rhinitis due to animal (cat) Allergy Injection (dog) hair and dander 06/20/2018 J30.89 Other allergic rhinitis Cristian Abreu M.D. 06/20/2018 J30.89 Other allergic rhinitis Allergy Injection 05/30/2018 J30.1 Allergic rhinitis due to pollen Cristian Abreu M.D. 05/30/2018 J30.1 Allergic rhinitis due to pollen Allergy Injection 05/30/2018 J30.2 Other seasonal allergic rhinitis Cristian Abreu M.D. 05/30/2018 J30.2 Other seasonal allergic rhinitis Allergy Injection 05/30/2018 J30.81 Allergic rhinitis due to animal (cat) Cristian Abreu M.D. (dog) hair and dander 05/30/2018 J30.81 Allergic rhinitis due to animal (cat) Allergy Injection (dog) hair and dander 05/30/2018 J30.89 Other allergic rhinitis Cristian Abreu M.D. 05/30/2018 J30.89 Other allergic rhinitis Allergy Injection 05/16/2018 J30.1 Allergic rhinitis due to pollen Cristian Abreu M.D. 05/16/2018 J30.1 Allergic rhinitis due to pollen Allergy Injection 05/16/2018 J30.2 Other seasonal allergic rhinitis Cristian Abreu M.D. 05/16/2018 J30.2 Other seasonal allergic rhinitis Allergy Injection 05/16/2018 J30.81 Allergic rhinitis due to animal (cat) Cristian Abreu M.D. (dog) hair and dander 05/16/2018 J30.81 Allergic rhinitis due to animal (cat) Allergy Injection (dog) hair and dander 05/16/2018 J30.89 Other allergic rhinitis Cristian Abreu M.D. 05/16/2018 J30.89 Other allergic rhinitis Allergy Injection 05/04/2018 J30.1 Allergic rhinitis due to pollen Cristian Abreu M.D. 05/04/2018 J30.1 Allergic rhinitis due to pollen Allergy Injection 05/04/2018 J30.2 Other seasonal allergic rhinitis Cristian Abreu M.D. 05/04/2018 J30.2 Other seasonal allergic rhinitis Allergy Injection 05/04/2018 J30.81 Allergic rhinitis due to animal (cat) Cristian Abreu M.D. (dog) hair and dander 05/04/2018 J30.81 Allergic rhinitis due to animal (cat) Allergy Injection (dog) hair and dander 05/04/2018 J30.89 Other allergic rhinitis Cristian Abreu M.D. 05/04/2018 J30.89 Other allergic rhinitis Allergy Injection Plan of Treatment Future Appointment(s):01/24/2019 8:40 am - ANTONIA Crenshaw at [facility]10/10/2018 10:45 am - Allergy Injection at [facility]10/04/2018 - OSCAR Crenshaw-CJ30.1 Allergic rhinitis due to aykohgT47.2 Other seasonal allergic aodclqpgV28.81 Allergic rhinitis due to animal (cat) (dog) hair and nmhgbeO14.89 Other allergic rhinitisNew Medication:Pulmicort Flexhaler 180 mcg/ ActRecommendations:Continue all medications as prescribed.Refrain from wearing perfumes/scented colognes while visitingour office. Continue the Fluticasone 2 sprays each nostril daily Stop the Flovent and use the Pulmicort 2 puffs twice a day Continue the Proair 2 puffs every 4 hours for chest congestion, coughing, shortness of breath, or wheezing Monitor Albuterol use. If using more than 2x/week, please call the office as your asthma medications may need to be adjusted. Continue the allergy shots Functional Status Description No Information Available Mental Status Description No Information Available Referrals Description No Information Available
[2018-11-12 10:03] VITALS: BP 145/55
--- NOTE | 2018-11-12 10:18 | UC ---
Complaint Female HPI - HPI Summary HPI Summary: Intermittent pain across lower pelvic area. Has urinary frequency, but no pain or burning x2 days. IS CURRENTLY DOING CHEMO TREATMENTS. LAST ONE TO START TOMORROW. - History Of Current Complaint Chief Complaint: UCGU Stated Complaint: URINARY COMPLAINT Time Seen by Provider: 11/12/18 09:58 Hx Obtained From: Patient Hx Last Menstrual Period: n/a ?: No Onset/Duration: Sudden Onset, Lasting Days Timing: Constant Severity Initially: Mild Severity Currently: Mild Pain Intensity: 0 Aggravating Factor(s): Urination - increased frequency, no pain - Allergies/Home Medications Allergies/Adverse Reactions: Allergies Allergy/AdvReac Type Severity Reaction Status Date / Time Adhesive Tape Allergy Intermediate Rash Verified 11/12/18 09:56 amoxicillin Allergy Hives Verified 11/12/18 09:56 Penicillins Allergy Hives Verified 11/12/18 09:56 tetracycline Allergy Headache Verified 11/12/18 09:56 Home Medications: Home Medications Chlorambucil 1 dose IV SEE INSTRUCTIONS 11/12/18 [History Confirmed 11/12/18] Hydrochlorothiazide TAB* [Hydrodiuril TAB*] 12.5 mg PO DAILY PRN 11/12/18 [ History Confirmed 11/12/18] Ketorolac TAB * [Toradol TAB *] 10 mg PO Q6H PRN 11/12/18 [History Confirmed 07/26] Obinutuzumab* [Gazyva*] 1 dose .SEE ORDER SEE INSTRUCTIONS 11/12/18 [History Confirmed 11/12/18] PMH/Surg Hx/FS Hx/Imm Hx Previously Healthy: Yes - Surgical History Surgical History: Yes Surgery Procedure, Year, and Place: G[facility]ADDER 2004[place] [place] [id number] right knee surgery- [facility]. x2Abd wall hernia-[facility], then mesh infection and subsequent removal. Hernia repair Mar 2016. TUBAL LIGATION - Family History Known Family History: Positive: None Negative: Cardiac Disease, Hypertension - Social History Alcohol Use: None Substance Use Type: None Smoking Status (MU): Never Smoked Tobacco - Immunization History Most Recent Influenza Vaccination: 2015 Most Recent Tetanus Shot: UTD Most Recent Pneumonia Vaccination: 11/2013 Vaccination Up to Date: Yes Review of Systems All Other Systems Reviewed And Are Negative: Yes Genitourinary: Positive: Frequency Is Patient Immunocompromised?: Yes - currently receiveing chemo Physical Exam Triage Information Reviewed: Yes Appearance: Well-Appearing, Well-Nourished, Pain Distress Vital Signs: Initial Vital Signs Temp 98.6 F 11/12/18 09:56 Pulse 101 11/12/18 09:56 Resp 20 11/12/18 09:56 BP 145/55 11/12/18 09:56 Pulse Ox 97 11/12/18 09:56 Vital Signs Reviewed: Yes Eye Exam: Normal ENT Exam: Normal Dental Exam: Normal Neck exam: Normal Respiratory Exam: Normal Respiratory: Positive: Chest non-tender, Lungs clear, Normal breath sounds Cardiovascular Exam: Normal Cardiovascular: Positive: RRR, No Murmur, Pulses Normal Abdominal Exam: Normal Abdomen Description: Positive: CVA Tenderness (R) - neg, CVA Tenderness (L) - nweg, Other: - lower abdominal tenderness Bowel Sounds: Positive: Present Musculoskeletal Exam: Normal Neurological Exam: Normal Psychological Exam: Normal Skin Exam: Normal Complaint Female Dx - Course Course Of Treatment: hx obtained, exam performed ,meds reviewed, UA obtained, it was clean, she has been pushing fluids, she is symtpomatic. treated and advised to start treatment , will follow up with urine culture - Differential Dx/Diagnosis Provider Diagnosis: Increased urinary frequency, Bilateral lower abdominal discomfort Discharge ED - Sign-Out/Discharge Documenting (check all that apply): Patient Departure All imaging exams completed and their final reports reviewed: No Studies - Discharge Plan Condition: Stable Disposition: HOME Prescriptions: Nitrofurantoin Monohyd/M-Cryst [Macrobid 100 mg Capsule] 100 mg PO BID #14 cap Patient Education Materials: Dysuria (ED) Referrals: Jonh Gallardo MD [Primary Care Provider] - Additional Instructions: 1. start the medication as prescribed. 2. continue to push fluids 3. Rest and follow up with your PCP if symptoms worsen - Billing Disposition and Condition Condition: STABLE Disposition: Home - Attestation Statements Provider Attestation: I was available for consult. This patient was seen by the YESSICA. The patient was not presented to , seen by or examined by ok -Carroll Mendieta MD
== END 2018-11-12 10:32 | disposition home or self-care (01) ==
LOC: UCCORT 09:35
DX: R35.0 Frequency of micturition (principal); R19.8 Other specified symptoms and signs involving the digestive system and abdomen; Z91.09 Other allergy status, other than to drugs and biological substances; Z88.0 Allergy status to penicillin; Z88.1 Allergy status to other antibiotic agents
CPT/HCPCS: 81003; 87086; 99212; G0463

== ENCOUNTER 2019-01-22 09:05 | Emergency (ER) | payer MEDICARE ==
--- OUTSIDE RECORDS SUMMARY | 2019-01-22 09:22 | XMS REPORT | Continuity of Care Document ---
:1940 External Reference #:[id number] Author Name Jonh Gallardo M.D. Address [address] [facility] [address] [place] [address] Care Team Providers Name Role Phone HCP given Care Team Information Network Cabler Unavailable Chivo Soler MD - Gastroenterology Care Team Information Network [place] [phone] Rakan Shaw MD - Otolaryngology Care Team Information Network [place] [facility] - Care Team Information Network [place] [phone] Obstetrics & Gynecology [facility] - Care Team Information Network [place] [phone] Nutrition, Education Cristiano Levy MD - Ophthalmology Care Team Information Network [place] Problems Active Problems Provider Date Gastroparesis syndrome Jonh Gallardo M.D. Onset: 12/05/2009 Gastroesophageal reflux disease Jonh Gallardo M.D. Onset: 12/05/2009 Benign essential hypertension Jonh Gallardo M.D. Onset: 12/05/2009 Pure hypercholesterolemia Jonh Gallardo M.D. Onset: 06/05/2010 Impaired fasting glycaemia Jonh Gallardo M.D. Onset: 06/05/2010 Chronic lymphoid leukemia, disease Jonh Gallardo M.D. Onset: 06/30/2012 Intermittent asthma Branod Farmer M.D. Onset: 03/09/2016 Essential hypertension Brando Farmer M.D. Onset: 03/09/2016 Intermittent asthma Jonh Gallardo M.D. Onset: 03/07/2018 Intermittent asthma Jonh Gallardo M.D. Onset: 12/26/2018 Intermittent asthma Keyanna Fernando Onset: 04/06/2018 Social History Type Date Description Comments Sex Unknown Tobacco Use Reviewed: 01/08/14 Denies Cigarette Use Smoking Status Reviewed: 04/06/18 Denies Cigarette Use Tobacco Use Start: Unknown Non Smoker Tobacco Use Start: Unknown Patient has never smoked Allergies, Adverse Reactions, Alerts Active Allergies Reaction Severity Comments Date Amoxicillin Hives 07/23/2008 Penicillins hives 12/01/2012 Adhesives skin breakdown 08/26/2014 Inactive Allergies Pantoprazole Sodium Hives 11/12/2008 Medications Active Medications SIG Qnty Indications Ordering Provider Date Azithromycin 2 by mouth on day 6tabs R05 Jonh Gallardo, 12/26/2018 250mg then 1 by mouth M.D. Tablets daily for 4 more days; for prolonged cough Pulmicort Flexhaler 2 puffs 2x/day; J45.20 Unknown 12/25/2018 for asthma 180mcg/Act Aerosol R05 Omeprazole Take 1 Capsule By 180caps K21.9 Jonh Gallardo, 03/06/2018 20mg Capsules Mouth Twice Daily M.DNito DR For Acid Reflux R10.13 Domperidone 1 by mouth three times K31.84 Unknown 01/09/2017 10mg a day; for gastroparesis Metamucil 1 Tbsp per day Unknown 01/09/2017 Powder Proair HFA Inhale 2 Puffs PO Q 4 J45.20 Unknown 06/22/2016 108(90Base) H When Needed. mcg/Act Aerosol Pre-Exercise 2 Puffs Nystatin apply to affected 30units B37.2 Jonh Gallardo, 04/21/2016 127252Rsmj/GM areas under breasts M.D. Cream three times daily as needed for fungal rashes Fish Oil 2 daily Unknown 05/13/2015 1000mg Calcium/Mag/D3 daily Unknown 05/13/2015 Advil prn for H/A or pain Unknown 08/25/2014 200mg Tablets Vitamin D one po daily Unknown 07/23/2014 Capsules Allergy Inj. as directed Unknown 07/23/2014 Temazepam Take 1 Capsule By 30caps G47.00 Jonh Gallardo, 01/08/2014 15mg Capsules Mouth Every Night as M.D. Needed For Sleep. Maximum Daily Dose Is 1 Artificial Tears 2 drops each eye 3 to 15ml 375.20 Jonh Gallardo, 2013 1.4% 4 times a day M.D. Solution Sucralfate Take 1 Tablet By Mouth 360tabs R10.13 Jonh Gallardo, 2012 1gm Tablets 1 Hour Before Meals Or M.D. Food And AT Bedtime Fluticasone 2 sprays to both 1Bottle J30.9 Pelon Macias, 07/23/2008 Propionate nostrils once daily D.O. 50mcg/Act Suspension Medications Administered in Office Medication SIG Qnty Indications Ordering Provider Date H1N1 Swine Flu Vaccine Jonh Gallardo M.D. 01/21/2009 Injection Immunizations CPT Code Status Date Vaccine Lot # [id number] Given 11/22/2018 Influenza Vaccine, Inactivated, Subunit, Adjuvanted, For Intrmusc 09715 Given 11/23/2017 Influenza Vaccine, Inactivated, Subunit, [id number] Adjuvanted, For Intrmusc 96319 Given 07/12/2017 Shingrix Zoster (Shingles) Vaccine (HZV) Recomb,Subnit,Adjuvanted 85854 Given 09/20/2016 Influenza Vaccine Split Virus Preservative Free Im [id number] Use (hi-dose) 37406 Given 12/10/2015 Influenza Virus Vaccine, Quadrivalent, Split, Im Use 14934 Given 01/03/2015 Influenza Vaccine Split Virus Preservative Free Im [id number] Use (hi-dose) 70734 Given 12/27/2014 Prevnar 13 [id number] 96724 Given 01/08/2014 Adacel or Boostrix, TDaP [id number] 69197 Given 10/20/2013 Flu, Split Virus 3Yrs 84480 Given 12/01/2012 Flu, Split Virus 3Yrs [id number] 68766 Given 12/21/2010 Zostavax [id number] 87763 Given 10/17/2010 Flu, Split Virus 3Yrs 83859 Given 10/23/2009 Flu, Split Virus 3Yrs 74402 Given 11/12/2008 Pneumococcal Immunization [id number] 88167 Given 11/12/2008 Td Immunization [id number] 70427 Given 08/02/2008 Zostavax [id number] Vital Signs Date Vital Result Comment 12/26/2018 3:43pm Body Temperature 98.8 F Weight 197.00 lb 04/06/2018 9:18am BP Systolic 138 mmHg BP Diastolic 72 mmHg Weight 199.00 lb with shoes Results Test Acquired Date Facility Test Result H/L Range Note Urine Culture And 11/12/2018 [facility] Urine SEE RESULT 1, 2 Sensitivities [phone] Culture BELOW Poc Urinalysis 11/12/2018 [facility] Poc Negative Negative [phone] Glucose, Urine Poc Bilirubin, Urine Negative Negative Poc Ketone, Urine Negative Negative Poc Specific [place], Urine <= 1.005 Low 1.010-1.030 Poc Blood, Urine Negative Negative Poc pH, Urine 6.0 Normal 5-9 Poc Protein, Urine Negative Negative Poc Urobilinogen, Urine 0.2 Negative Poc Nitrite, Urine Negative Negative Poc Leukocytes, Urine Negative Negative Poc Color, Urine Yellow Poc Clarity, Urine Clear 3 Urinalysis Profile 09/11/2018 [facility] Urine Color Straw [phone] Urine Appearance Clear Urine Specific [place] 1.006 Low 1.010-1.030 Urine pH 6.0 Normal 5-9 Urine Urobilinogen Negative Negative Urine Ketones Negative Negative Urine Protein Negative Negative Urine Leukocytes Trace Abnormal Negative Urine Blood Negative Negative * * Abnormal Negative 4 Urine Nitrite Negative Negative Urine Bilirubin Negative Negative Urine Glucose Negative Negative Urine White Blood Cell Trace(0-5/hpf) Absent Urine Red Blood Cell Trace(0-2/hpf) Absent Urine Bacteria Absent Absent Urine Squamous Epithelial Cell Present Abnormal Absent Urine Culture And 09/11/2018 [facility] Urine Culture SEE RESULT 5 Sensitivities [phone] BELOW CBC Auto Diff 09/11/2018 [facility] White Blood 6.8 10^3/uL Normal 3.5-10 [phone] Count .8 Red Blood Count 4.56 10^6/uL Normal 3.70-4.87 Hemoglobin 13.7 g/dL Normal 12.0-16.0 Hematocrit 39 % Normal 35-47 Mean Corpuscular Volume 86 fL Normal 80-97 Mean Corpuscular Hemoglobin 30 pg Normal 27-31 Mean Corpuscular HGB Conc 35 g/dL Normal 31-36 Red Cell Distribution Width 13 % Normal 10-15 Platelet Count 102 10^3/uL Low 150-450 Mean Platelet Volume 9.1 fL Normal 7.4-10.4 Abs Neutrophils 5.1 10^3/uL Normal 1.5-7.7 Abs Lymphocytes 0.9 10^3/uL Low 1.0-4.8 Abs Monocytes 0.7 10^3/uL Normal 0-0.8 Abs Eosinophils 0.1 10^3/uL Normal 0-0.6 Abs Basophils 0.1 10^3/uL Normal 0-0.2 Abs Nucleated RBC 0.0 10^3/uL Granulocyte % 74.5 % Lymphocyte % 13.0 % Monocyte % 9.8 % Eosinophil % 1.4 % Basophil % 1.3 % Nucleated Red Blood Cells % 0.0 Comp Metabolic Panel 09/11/2018 [facility] Sodium 139 mmol/L Normal 135-145 [phone] Potassium 4.1 mmol/L Normal 3.5-5.0 Chloride 102 mmol/L Normal 101-111 Co2 Carbon Dioxide 28 mmol/L Normal 22-32 Anion Gap 9 mmol/L Normal 2-11 Glucose 89 mg/dL Normal 70-100 Blood Urea Nitrogen 19 mg/dL Normal 6-24 Creatinine 0.78 mg/dL Normal 0.51-0.95 BUN/Creatinine Ratio 24.4 High 8-20 Calcium 9.7 mg/dL Normal 8.6-10.3 Total Protein 6.9 g/dL Normal 6.4-8.9 Albumin 4.7 g/dL Normal 3.2-5.2 Globulin 2.2 g/dL Normal 2-4 Albumin/Globulin Ratio 2.1 Normal 1-3 Total Bilirubin 0.90 mg/dL Normal 0.2-1.0 Alkaline Phosphatase 88 U/L Normal 34-104 Alt 17 U/L Normal 7-52 Ast 24 U/L Normal 13-39 Egfr Non- 71.6 >60 Egfr 86.7 >60 6 CBC Auto Diff 07/10/2018 [facility] White Blood 4.7 10^3/uL Normal 3.5-10.8 7 [phone] Count Red Blood Count 4.29 10^6/uL Normal 3.70-4.87 Hemoglobin 12.8 g/dL Normal 12.0-16.0 Hematocrit 38 % Normal 35-47 Mean Corpuscular Volume 89 fL Normal 80-97 Mean Corpuscular Hemoglobin 30 pg Normal 27-31 Mean Corpuscular HGB Conc 34 g/dL Normal 31-36 Red Cell Distribution Width 14 % Normal 10.5-15 Platelet Count 100 10^3/uL Low 150-450 Mean Platelet Volume 9.7 fL Normal 7.4-10.4 Abs Neutrophils 3.1 10^3/uL Normal 1.5-7.7 Abs Lymphocytes 1.2 10^3/uL Normal 1.0-4.8 Abs Monocytes 0.4 10^3/uL Normal 0-0.8 Abs Eosinophils 0.1 10^3/uL Normal 0-0.6 Abs Basophils 0.0 10^3/uL Normal 0-0.2 Abs Nucleated RBC 0.0 10^3/uL Granulocyte % 65.4 % Lymphocyte % 25.1 % Monocyte % 7.4 % Eosinophil % 1.3 % Basophil % 0.8 % Nucleated Red Blood Cells % 0.1 Comp Metabolic Panel 07/10/2018 [facility] Sodium 140 mmol/L Normal 135-145 [phone] Potassium 4.0 mmol/L Normal 3.5-5.0 Chloride 107 mmol/L Normal 101-111 Co2 Carbon Dioxide 26 mmol/L Normal 22-32 Anion Gap 7 mmol/L Normal 2-11 Calcium 9.1 mg/dL Normal 8.6-10.3 Albumin 4.3 g/dL Normal 3.2-5.2 Total Bilirubin 0.90 mg/dL Normal 0.2-1.0 Glucose 111 mg/dL High 70-100 Blood Urea Nitrogen 20 mg/dL Normal 6-24 Creatinine 0.68 mg/dL Normal 0.51-0.95 BUN/Creatinine Ratio 29.4 High 8-20 Total Protein 5.9 g/dL Low 6.4-8.9 Globulin 1.6 g/dL Low 2-4 Albumin/Globulin Ratio 2.7 Normal 1-3 Alkaline Phosphatase 68 U/L Normal 34-104 Alt 14 U/L Normal 7-52 Ast 17 U/L Normal 13-39 Egfr Non- 83.9 >60 Egfr 101.5 >60 8 1 [id number] 2 SEE RESULT BELOW Name: EMMY OVIEDO : [address]: Carroll Mendieta MD Acct: [id number] Unit: [id number] AGE: 78 Location: [facility] Re11/12/18 SEX: F Status: DEP ER SPEC: [id number] SABINE: 11/12/[address]: Esthela Martinez NP REQ: [id number] RECD: 11/12/18 STATUS: JAZMIN NIELSON DR: Carroll Montemayor MD _ SOURCE: URINE SPDESC: ORDERED: Urine Culture COMMENTS: [id number] Procedure Result Reported Site Urine Culture Final 11/13/18- 1558 ML No Growth (<1,000 CFU/mL) * ML - Main Lab . END OF REPORT DEPARTMENT OF PATHOLOGY, [address] [place] [address] Mane Crocker M.D. Director [facility] # [id number] 3 Manager Credit: [id number] 4 *Ascorbic acid is present which may interfere with detection of blood. 5 SEE RESULT BELOW Name: EMMY OVIEDO Davian : [address]: Aba Montemayor MD Acct: [id number] Unit: [id number] AGE: 78 Location: [facility] Re09/11/18 SEX: F Status: REG REF SPEC: [id number] SABINE: 09/11/18-16[address] [facility] [address]: Aba Montemayor MD REQ: [id number] RECD: 09/11/18 STATUS: JAZMIN NIELSON DR: Robert Gallardo MD _ SOURCE: URINE SPDESC: ORDERED: Urine Culture Procedure Result Reported Site Urine Culture Final 09/12/18- 1622 ML No Growth (<1,000 CFU/mL) * ML - Main Lab . END OF REPORT DEPARTMENT OF PATHOLOGY, [address] [place] [address] Mane Crocker M.D. Director [facility] # [id number] 6 Because ethnic data is not always readily available, this report includes an eGFR for both -Americans and non- Americans. The National Kidney Disease Education Program (NKDEP) does not endorse the use of the MDRD equation for patients that are not between the ages of 18 and 70, are , have extremes of body size, muscle mass, or nutritional status, or are non- or non-. According to the National Kidney Foundation, irrespective of diagnosis, the stage of the disease is based on the level of kidney function: Stage Description GFR(mL/min/1.73 m(2)) 1 Kidney damage with normal or decreased GFR 90 2 Kidney damage with mild decrease in GFR 60-89 3 Moderate decrease in GFR 30-59 4 Severe decrease in GFR 15-29 5 Kidney failure <15 (or dialysis) 7 [id number] 8 Because ethnic data is not always readily available, this report includes an eGFR for both -Americans and non- Americans. The National Kidney Disease Education Program (NKDEP) does not endorse the use of the MDRD equation for patients that are not between the ages of 18 and 70, are , have extremes of body size, muscle mass, or nutritional status, or are non- or non-. According to the National Kidney Foundation, irrespective of diagnosis, the stage of the disease is based on the level of kidney function: Stage Description GFR(mL/min/1.73 m(2)) 1 Kidney damage with normal or decreased GFR 90 2 Kidney damage with mild decrease in GFR 60-89 3 Moderate decrease in GFR 30-59 4 Severe decrease in GFR 15-29 5 Kidney failure <15 (or dialysis) Procedures Date Code Description Status 02/03/2018 32319139 Mammogram Completed 11/25/2016 44193495 Colonoscopy Completed Medical Devices Description No Information Available Encounters Type Date Location Provider Dx Diagnosis Office Visit 12/26/2018 Main Office Jnoh Gallardo J45.20 Mild intermittent 3:00p M.D. asthma, uncomplicated R05 Cough J06.9 Acute upper respiratory infection, unspecified Assessments Date Code Description Provider 12/26/2018 J45.20 Mild intermittent asthma, uncomplicated Jonh Gallardo M.D. 12/26/2018 R05 Cough Jonh Gallardo M.D. 12/26/2018 J06.9 Acute upper respiratory infection, Jonh Gallardo M.D. unspecified Plan of Treatment 04/06/2018 - Keyanna FernandoZ01.818 Encounter for other preprocedural szmrmsfoehxR95.2 Incisional hernia without obstruction or gangreneComments: Planned surgery with Dr. Giron in May. Ok at this timeJ45.20 Mild intermittent asthma, ggulpvynvozymS71.9 Gastro-esophageal reflux disease without stgigsrqwuaI44.84 VzwgfmvuvbuotJ50 Essential (primary) hypertensionComments:pt advised to report cp, change in angina , sob etContinue same meds with no change. Comply with diet and exercise. Lose weight and watch salt in diet.R73.01 Impaired fasting glucoseComments: controlled at this time Functional Status Description No Information Available Mental Status Description No Information Available Referrals Description No Information Available
--- OUTSIDE RECORDS SUMMARY | 2019-01-22 09:22 | XMS REPORT | Continuity of Care Document ---
:1940 External Reference #:[id number] Author Name Andres Deshpande MD, FACS (transmitted by agent of provider Silvestre Sanchez) Address [address] [facility] [place] [address] [place] [address] Care Team Providers Name Role Phone Aba Montemayor MD - Hematology Care Team Information [place] Jonh Gallardo MD - Internal Care Team Information [place] Medicine Problems Active Problems Provider Date Abdominal abscess Rohith Sesay M.D.,FACP Onset: 09/18/2014 Note: abdo wall/rectus Social History Type Date Description Comments Sex Unknown Tobacco Use Start: Unknown Patient has never smoked Smoking Status Reviewed: 12/18/18 Patient has never smoked Exercise Type/Frequency Exercises rarely Allergies, Adverse Reactions, Alerts Active Allergies Reaction Severity Comments Date Penicillin hives 08/30/2014 Tape skin irritation 09/12/2014 Tetracycline headache 09/12/2014 Amoxicillin hives 09/12/2014 Medications Active Medications SIG Qnty Indications Ordering Provider Date Sucralfate 1 by mouth four Unknown 1gm Tablets times a day Omeprazole 1 by mouth twice a Unknown 20mg day Capsules DR Vitamin B-12 every day Unknown 1000mcg Tablets Metamucil 1 tbsp daily Unknown 28.3% Powder Fish Oil 1 tab by mouth Unknown 1000mg every morning Capsules Vitamin D High 1 by mouth every Unknown Potency day 1000Unit Capsules Hydroeye as directed Unknown Temazepam 1 at at bedtime as Unknown 15mg Capsules needed Domperidone 10 mg three times Unknown a day Biotin 1 tab daily Unknown 1000mcg Tablets Immunizations Description No Information Available Vital Signs Date Vital Result Comment 12/18/2018 9:45am Heart Rate 80 /min BP Systolic 160 mmHg BP Diastolic 84 mmHg Respiratory Rate 16 /min Body Temperature 97.6 F 05/31/2018 11:23am Height 62 inches 5'2" Weight 198.00 lb Heart Rate 78 /min BP Systolic Sitting 148 mmHg BP Diastolic Sitting 72 mmHg Respiratory Rate 16 /min Body Temperature 97.1 F BMI (Body Mass Index) 36.2 kg/m2 Results Test Acquired Date Facility Test Result H/L Range Note Urine Culture And 11/12/2018 [facility] Urine SEE RESULT 1 , [address] [place] [address] [phone] Poc Urinalysis 11/12/2018 [facility] Poc Negative Negative [address] Glucose, [place] [address] Urine [phone] Poc Bilirubin, Urine Negative Negative Poc Ketone, Urine Negative Negative Poc Specific [place], Urine <= 1.005 Low 1.010-1.030 Poc Blood, Urine Negative Negative Poc pH, Urine 6.0 Normal 5-9 Poc Protein, Urine Negative Negative Poc Urobilinogen, Urine 0.2 Negative Poc Nitrite, Urine Negative Negative Poc Leukocytes, Urine Negative Negative Poc Color, Urine Yellow Poc Clarity, Urine Clear 3 1 [id number] 2 SEE RESULT BELOW Name: EMMY OVIEDO : [address]: Carroll Mendieta MD Acct: [id number] Unit: [id number] AGE: 78 Location: [facility] Re11/12/18 SEX: F Status: DEP ER SPEC: [id number] SABINE: 11/12/18-[address] [facility] [address]: Esthela Martinez NP REQ: [id number] RECD: 11/12/18 STATUS: JAZMIN NIELSON DR: Carroll Montemayor MD _ SOURCE: URINE [facility]: ORDERED: Urine Culture COMMENTS: [id number] Procedure Result Reported Site Urine Culture Final 11/13/18- 1558 ML No Growth (<1,000 CFU/mL) * ML - Main Lab . END OF REPORT DEPARTMENT OF PATHOLOGY, [address] [place] [address] Mane Crocker M.D. Director [facility] # [id number] 3 Home Service Advisor: [id number] Procedures Date Code Description Status 12/18/2018 28928 Removal Tunneled Central Venous Access Dev W/Sub Completed Port/Pump 07/18/2013 27869982 Mammogram Completed 07/09/2013 28952904 Mammogram Completed Medical Devices Description No Information Available Encounters Type Date Location Provider Dx Diagnosis Office Visit 09/19/2018 [facility] Aba Montemayor, C91.12 Chronic lymphocytic 10:00a [facility] AT M.D. leukemia of B-cell [place] type in relapse R53.83 Other fatigue Office Visit 06/27/2018 11:40a [facility] Aba Montemayor, C91.12 Chronic [facility] Deisy lymphocytic AT [place] leukemia of B-cell type in relapse R53.83 Other fatigue Assessments Date Code Description Provider 12/18/2018 C91.11 Chronic lymphocytic leukemia of B-cell Andres Deshpande MD , FACS type in remission 09/19/2018 C91.12 Chronic lymphocytic leukemia of B-cell Aba Montemayor M.D. type in relapse 09/19/2018 R53.83 Other fatigue Aba Montemayor M.D. 06/27/2018 C91.12 Chronic lymphocytic leukemia of B-cell Aba Montemayor M.D. type in relapse 06/27/2018 R53.83 Other fatigue Aba Montemayor M.D. Plan of Treatment Future Appointment(s):12/25/2018 8:45 am - Andres Deshpande MD, FACS at [facility]12/18/2018 - Andres Deshpande MD, FACSC91.11 Chronic lymphocytic leukemia of B-cell type in remissionFollow up:1 weekInstructions: instruction sheet given Functional Status Description No Information Available Mental Status Description No Information Available Referrals Description No Information Available
--- OUTSIDE RECORDS SUMMARY | 2019-01-22 09:22 | XMS REPORT | Continuity of Care Document ---
:1940 External Reference #:[id number] Author Name Andres Deshpande MD, FACS (transmitted by agent of provider Silvestre Sanchez) Address [address] [facility] [place] [address] [place] [address] Care Team Providers Name Role Phone Aba Montemayor MD - Hematology Care Team Information Supervisor Doping Jonh Gallardo MD - Internal Care Team Information Supervisor Doping Medicine Problems Active Problems Provider Date Abdominal abscess Rohith Sesay M.D.,FACP Onset: 09/18/2014 Note: abdo wall/rectus Social History Type Date Description Comments Sex Unknown Tobacco Use Start: Unknown Patient has never smoked Smoking Status Reviewed: 12/25/18 Patient has never smoked Exercise Type/Frequency Exercises [...] Available Vital Signs Date Vital Result Comment 12/25/2018 8:50am Heart Rate 88 /min BP Systolic Sitting 142 mmHg BP Diastolic Sitting 68 mmHg Respiratory Rate 18 /min Body Temperature 98.0 F 12/18/2018 9:45am Heart Rate 80 /min BP Systolic 160 mmHg BP Diastolic 84 mmHg Respiratory Rate 16 /min Body Temperature 97.6 F Results Test Acquired Date Facility Test Result H/L Range Note Urine Culture And 11/12/2018 [facility] Urine SEE RESULT 1 , [address] [place] [address] [phone] Poc Urinalysis 11/12/2018 [facility] Poc Negative Negative [address] Glucose, [place] [address] Urine [phone] Poc Bilirubin, Urine Negative Negative Poc Ketone, Urine Negative Negative Poc Specific [place], Urine <= 1.005 Low 1.010-1.030 Poc Blood, Urine Negative Negative Poc pH, Urine 6.0 Normal 5-9 Poc Protein, Urine Negative Negative Poc Urobilinogen, Urine 0.2 Negative Poc Nitrite, Urine Negative Negative Poc Leukocytes, Urine Negative Negative Poc Color, Urine Yellow Poc Clarity, Urine Clear 3 1 [id number] 2 SEE RESULT BELOW Name: EMMY OVIEDO : [address]: Carroll Mendieta MD Acct: [id number] Unit: [id number] AGE: 78 Location: [facility] Re11/12/18 SEX: F Status: DEP ER SPEC: [id number] SABINE: 11/12/18-[address]: Esthela Martinez NP REQ: [id number] RECD: 11/12/185 STATUS: COMP OTHR DR: Carroll Montemayor MD _ SOURCE: URINE SPDESC: ORDERED: Urine Culture COMMENTS: [id number] Procedure Result Reported Site Urine Culture Final 11/13/18- 1558 ML No Growth (<1,000 CFU/mL) * ML - Main Lab . END OF REPORT DEPARTMENT OF PATHOLOGY, [address] [place] [address] Mane Crocker M.D. Director [facility] # [id number] 3 Commercial Mortgage Broker: [id number] Procedures Date Code Description Status 12/18/2018 72393 Removal Tunneled Central Venous Access Dev W/Sub Completed Port/Pump 07/18/2013 01477830 Mammogram Completed 07/09/2013 41728754 Mammogram Completed Medical Devices Description No Information Available Encounters Type Date Location Provider Dx Diagnosis Office Visit 09/19/2018 [facility] Aba Montemayor, C91.12 Chronic lymphocytic 10:00a [facility] leukemia of B-cell [place] type in relapse R53.83 Other fatigue Office Visit 06/27/2018 11:40a [facility] Aba Montemayor, C91.12 Chronic [facility] [place] lymphocytic AT [place] leukemia of B-cell type in relapse R53.83 Other fatigue Assessments Date Code Description Provider 12/25/2018 C91.11 Chronic lymphocytic leukemia of B-cell Andres Deshpande MD , FACS type in remission 12/18/2018 C91.11 Chronic lymphocytic leukemia of B-cell Andres Deshpande MD , FACS type in remission 09/19/2018 C91.12 Chronic lymphocytic leukemia of B-cell Aba Montemayor M.D. type in relapse 09/19/2018 R53.83 Other fatigue Aba Montemayor M.D. 06/27/2018 C91.12 Chronic lymphocytic leukemia of B-cell Aba Montemayor M.D. type in relapse 06/27/2018 R53.83 Other fatigue Aba Montemayor M.D. Plan of Treatment 12/25/2018 - Andres Deshpande MD, FACSC91.11 Chronic lymphocytic leukemia of B- cell type in remissionFollow up:None needed Functional Status Description No Information Available Mental Status Description No Information Available Referrals Description No Information Available
[2019-01-22 09:36] VITALS: BP 141/59
--- NOTE | 2019-01-22 09:57 | UC ---
Respiratory Complaint HPI - HPI Summary HPI Summary: 78-year-old female who has had cold symptoms and a cough for 3 days. She denies any fever or chills. She states at night she has been wheezing. She does have asthma however has not been using her albuterol inhaler because "I forgot I had that". - History of Current Complaint Chief Complaint: UCGeneralIllness Stated Complaint: CHEST CONGESTION Time Seen by Provider: 01/22/19 09:56 Hx Obtained From: Patient Hx Last Menstrual Period: n/a ?: No Onset/Duration: Gradual Onset Timing: Intermittent Episodes Severity Initially: Mild Severity Currently: Mild Pain Intensity: 8 Character: Cough: Nonproductive Alleviating Factors: Nothing - Patient forgot she had an albuterol inhaler she could use for wheezing. Associated Signs And Symptoms: Positive: Wheezing, URI, Nasal Congestion - Allergies/Home Medications Allergies/Adverse Reactions: Allergies Allergy/AdvReac Type Severity Reaction Status Date / Time Adhesive Tape Allergy Intermediate Rash Verified 01/22/19 09:26 amoxicillin Allergy Hives Verified 01/22/19 09:26 Penicillins Allergy Hives Verified 01/22/19 09:26 tetracycline Allergy Headache Verified 01/22/19 09:26 PMH/Surg Hx/FS Hx/Imm Hx Previously Healthy: Yes Respiratory History: Asthma Cancer History: Other - CLL - Surgical History Surgical History: Yes Surgery Procedure, Year, and Place: cholecystectomy 2004--[facility] [place]-. hysterectomy Complete-[facility]. right knee surgery-as a teen. abd wall hernia x2-[facility], then mesh infection and subsequent removal. Hernia repair Mar 2016. Tubal ligation - Family History Known Family History: Positive: None Negative: Cardiac Disease, Hypertension - Social History Alcohol Use: None Substance Use Type: None Smoking Status (MU): Never Smoked Tobacco - Immunization History Most Recent Influenza Vaccination: 2016 Most Recent Tetanus Shot: UTD Most Recent Pneumonia Vaccination: 11/2013 Vaccination Up to Date: Yes Review of Systems All Other Systems Reviewed And Are Negative: Yes Respiratory: Positive: Cough - Patient states rarely she can bring up some yellow sputum. Denies any shortness of breath. Is Patient Immunocompromised?: No - Finished chemo in June 2018 Physical Exam Triage Information Reviewed: Yes Appearance: Well-Appearing, No Pain Distress, Well-Nourished Vital Signs: Initial Vital Signs Temp 97.9 F 01/22/19 09:28 Pulse 87 01/22/19 09:28 Resp 18 01/22/19 09:28 BP 141/59 01/22/19 09:28 Pulse Ox 98 01/22/19 09:28 Vital Signs Reviewed: Yes Eyes: Positive: Conjunctiva Clear ENT: Positive: Hearing grossly normal, Pharynx normal, TMs normal, Uvula midline Neck: Positive: Supple, Nontender, No Lymphadenopathy Respiratory: Positive: No respiratory distress, No accessory muscle use, Wheezing - Patient has mild wheezing with forced expiration. No distress, good air movement. Cardiovascular: Positive: RRR, No Murmur, Pulses Normal, Brisk Capillary Refill Musculoskeletal Exam: Normal Neurological Exam: Normal Psychological Exam: Normal Skin Exam: Normal Respiratory Course/Dx - Course Course Of Treatment: Chest x-ray:FINDINGS: The heart is within normal limits in size. There is mitral annular calcification present. There is a linear density in the right middle lobe most consistent with subsegmental atelectasis. The lungs are otherwise clear. There is flattening of the diaphragms suggestive of chronic pulmonary disease. No pleural effusion is seen. IMPRESSION: FINDINGS CONSISTENT WITH COPD, NO EVIDENCE FOR ACUTE DISEASE DuoNeb treatment: Patient felt better following the DuoNeb treatment. At this point time she chose to try using her albuterol inhaler 2 puffs every 4 hours as needed and preferred not to be on prednisone. She does have an appointment with her co founder and president on Tuesday and she would prefer to wait until that appointment to be rechecked and then might be given the possibility of prednisone. - Differential Dx/Diagnosis Provider Diagnosis: Bronchitis Discharge ED - Sign-Out/Discharge Documenting (check all that apply): Patient Departure All imaging exams completed and their final reports reviewed: Yes - Discharge Plan Condition: Good Disposition: HOME Prescriptions: Albuterol HFA INHALER* [Ventolin HFA Inhaler*] 2 puff INH Q4H PRN 5 Days #1 mdi PRN Reason: Wheezing Patient Education Materials: Acute Bronchitis (ED) Referrals: Jonh Gallardo MD [Primary Care Provider] - Additional Instructions: Increase fluids, use your albuterol inhaler 2 puffs every 4 hours as needed while awake. Definite recheck on Tuesday with your co founder and president as previously scheduled. If you have any worsening symptoms, difficulty breathing, chest pain , go to the emergency room for further treatment. - Billing Disposition and Condition Condition: GOOD Disposition: Home
[2019-01-22] MEDS ORDERED: Acetaminophen TAB* 325 MG PO ONE (10:02)
[2019-01-22] MEDS ORDERED: Albuterol/Ipratropium NEB.SOL* Albuterol 2.5 MG/Ipratropium 0.5 MG 3 ML INH ONE (10:03)
== END 2019-01-22 11:01 | disposition home or self-care (01) ==
LOC: UCCORT 09:05
DX: J45.909 Unspecified asthma, uncomplicated (principal); R09.81 Nasal congestion; Z85.6 Personal history of leukemia; Z88.0 Allergy status to penicillin; Z88.1 Allergy status to other antibiotic agents; Z91.09 Other allergy status, other than to drugs and biological substances
CPT/HCPCS: 71046; 99212; A9270-GY; G0463

== ENCOUNTER 2021-01-28 13:41 | Inpatient (IN) ==
[2021-01-28] MEDS ORDERED: Diltiazem IV push/loading dose 5 MG/ML 5 ML vial (25 mg) IV SLOW PU ONE (14:33)
[2021-01-28 14:50] LABS: Hematocrit 39 % (35-47); Hemoglobin 12.9 g/dL (12.0-16.0); Mean Corpuscular HGB Conc 33 g/dL (31-36); Mean Corpuscular Hemoglobin 30 pg (27-31); Mean Corpuscular Volume 92 fL (80-97); Mean Platelet Volume 10.6 fL (7.4-10.4); Platelet Count 158 10^3/uL (150-450); Red Blood Count 4.23 10^6 /uL (3.70-4.87); Red Cell Distribution Width 14 % (10-15); White Blood Count 28.1 10^3/uL (3.5-10.8)
[2021-01-28 14:53] LABS: Urine Appearance Clear; Urine Bilirubin Negative (Negative); Urine Blood Negative (Negative); Urine Color Yellow; Urine Glucose Negative (Negative); Urine Ketones Negative (Negative); Urine Nitrite Negative (Negative); Urine Protein Negative (Negative); Urine Specific Gravity 1.012 (1.002-1.030); Urine Urobilinogen Negative (Negative)
[2021-01-28 14:55] LABS: Urine Bacteria Absent (Absent); Urine Red Blood Cell Trace(0-2/hpf) (Absent); Urine Squamous Epithelial Cell Present (Absent); Urine White Blood Cell 3+(>20/hpf) (Absent)
[2021-01-28 14:58] LABS: INR 1.2 (0.86-1.15)
[2021-01-28 15:07] LABS: ALT 34 U/L (7-52); AST 39 U/L (13-39); Albumin 4.2 g/dL (3.2-5.2); Albumin/Globulin Ratio 1.9 (1-3); Alkaline Phosphatase 78 U/L (35-149); Anion Gap 9 mmol/L (2-11); Blood Urea Nitrogen 19 mg/dL (6-24); CO2 Carbon Dioxide 26 mmol/L (22-32); Chloride 101 mmol/L (101-111); Globulin 2.2 g/dL (2-4); Glucose 94 mg/dL (70-100); Magnesium 1.9 mg/dL (1.9-2.7); Potassium 3.8 mmol/L (3.5-5.0); Sodium 136 mmol/L (135-145); Total Protein 6.4 g/dL (6.4-8.9); eGFR CKD-EPI 79.7 (>60)
[2021-01-28 15:12] LABS: Troponin I 1.84 ng/mL (<0.03)
[2021-01-28] MEDS: Diltiazem IV BAG D5W Premix 125 MG/125 ML BAG IV SCH (15:50)
[2021-01-28 16:19] LABS: ABS Basophils 0.2 10^3/ul (0-0.2); ABS Eosinophils 0.1 10^3/ul (0-0.6); ABS Lymphocytes 21.7 10^3/ul (1.0-4.8); ABS Monocytes 0.8 10^3/ul (0-0.8); ABS Neutrophils 5.4 10^3/ul (1.5-7.7); ABS Nucleated RBC 0.1 10^3/ul; Eosinophil % 0.3 %; Lymphocyte % 77.1 %; Nucleated Red Blood Cells % 0.2
[2021-01-28] MEDS ORDERED: Iohexol 350 (CONTRAST) 500 ML MDV IV ONE (16:27)
[2021-01-28 17:14] LABS: TSH Ultra Thyroid Stim Horm 1.48 mcIU/mL (0.34-5.60)
[2021-01-28] MEDS ORDERED: Heparin DRIP 25,000 UNITS BAG 25,000 UNITS/500 ML BAG IV SCH (17:15)
[2021-01-28] MEDS ORDERED: Heparin 5000 UNITS/ML 1 mL VIAL IV SCH (18:00)
[2021-01-28 18:19] LABS: Activated Partial Thrombo Time 30.1 seconds (26.0-38.0)
[2021-01-28 19:32] LABS: Troponin I 2.68 ng/mL (<0.03)
[2021-01-28 23:49] LABS: Troponin I 3.19 ng/mL (<0.03)
[2021-01-29] MEDS: Diltiazem IV BAG D5W Premix 125 MG/125 ML BAG IV SCH ×3 (00:16→19:59)
[2021-01-29 07:33] LABS: Hematocrit 35 % (35-47); Hemoglobin 11.5 g/dL (12.0-16.0); Mean Corpuscular HGB Conc 34 g/dL (31-36); Mean Corpuscular Hemoglobin 31 pg (27-31); Mean Corpuscular Volume 92 fL (80-97); Mean Platelet Volume 10.4 fL (7.4-10.4); Platelet Count 153 10^3/uL (150-450); Red Blood Count 3.75 10^6 /uL (3.70-4.87); Red Cell Distribution Width 13 % (10-15); White Blood Count 24.6 10^3/uL (3.5-10.8)
[2021-01-29 07:34] LABS: ABS Basophils 0.1 10^3/ul (0-0.2); ABS Eosinophils 0.1 10^3/ul (0-0.6); ABS Lymphocytes 18.1 10^3/ul (1.0-4.8); ABS Monocytes 0.7 10^3/ul (0-0.8); ABS Neutrophils 5.6 10^3/ul (1.5-7.7); Eosinophil % 0.3 %; Lymphocyte % 73.6 %; Nucleated Red Blood Cells % 0.1
[2021-01-29] MEDS: Mometasone 220 MCG MDI INH SCH ×2 (07:52→19:26)
[2021-01-29] MEDS: Cholecalciferol (VIT D3) 1,000 unit TAB PO SCH (08:13)
[2021-01-29] MEDS ORDERED: Digoxin IV 0.5 MG/2 ML AMP (0.25 MG/ML) IV SLOW PU ONE (15:02)
[2021-01-29] MEDS ORDERED: Potassium Chloride LIQUID 20 MEQ/15 ML LIQUID PO ONE (15:03)
[2021-01-29] MEDS ORDERED: Metoprolol Tartrate 5 mg VIAL 5 ml VIAL (1 mg/ml) IV ONE (15:53)
[2021-01-30] MEDS: Diltiazem IV BAG D5W Premix 125 MG/125 ML BAG IV SCH (06:12)
[2021-01-30 06:23] LABS: Hematocrit 37 % (35-47); Mean Corpuscular HGB Conc 33 g/dL (31-36); Mean Corpuscular Hemoglobin 30 pg (27-31); Mean Corpuscular Volume 93 fL (80-97); Mean Platelet Volume 10.1 fL (7.4-10.4); Platelet Count 171 10^3/uL (150-450); Red Blood Count 3.95 10^6 /uL (3.70-4.87); Red Cell Distribution Width 14 % (10-15); White Blood Count 24.5 10^3/uL (3.5-10.8)
[2021-01-30 06:29] LABS: ABS Basophils 0.1 10^3/ul (0-0.2); ABS Eosinophils 0.1 10^3/ul (0-0.6); ABS Lymphocytes 18.4 10^3/ul (1.0-4.8); ABS Monocytes 0.7 10^3/ul (0-0.8); ABS Neutrophils 5.2 10^3/ul (1.5-7.7); Eosinophil % 0.4 %; Lymphocyte % 75.1 %; Nucleated Red Blood Cells % 0.1
[2021-01-30 06:39] LABS: eGFR CKD-EPI 71.7 (>60)
[2021-01-30] MEDS: Mometasone 220 MCG MDI INH SCH ×2 (08:10→19:55)
[2021-01-30] MEDS ORDERED: Midazolam 5 mg/5 ml VIAL 1 mg/ml 5 ml VIAL (5 mg) ONE (09:37)
[2021-01-30] MEDS ORDERED: VERAPAMIL 2.5 MG/ML 2 ML VIAL ** 5 mg/2 ml ONE (09:37)
[2021-01-30] MEDS ORDERED: nitroGLYCERIN DRIP 25,000 MCG/250 ML BTL ONE (09:37)
[2021-01-30] MEDS ORDERED: Heparin 1,000 UNIT/ML 10 ml (10,000 UNITS) CATHLAB/DIALYSIS ONE (09:37)
[2021-01-30] MEDS ORDERED: fentaNYL 100 mcg/2 ml 50 MCG/ML VIAL ONE (09:37)
[2021-01-30] MEDS ORDERED: Heparin 2 UNITS/ML 1000 mls 3,000 ML IV ONE (09:37)
[2021-01-30] MEDS ORDERED: Lidocaine 1% VIAL 10 MG/ML VIAL ONE (09:38)
[2021-01-30] MEDS ORDERED: Iohexol 350 (CONTRAST) 200 ML MDV IV ONE (09:38)
[2021-01-30] MEDS: Aspirin EC 81 mg TAB.EC (enteric coated) PO SCH (09:58)
[2021-01-30] MEDS: Cholecalciferol (VIT D3) 1,000 unit TAB PO SCH (09:58)
[2021-01-31 03:40] LABS: Hematocrit 33 % (35-47); Hemoglobin 10.6 g/dL (12.0-16.0); Mean Corpuscular HGB Conc 33 g/dL (31-36); Mean Corpuscular Hemoglobin 30 pg (27-31); Mean Corpuscular Volume 93 fL (80-97); Mean Platelet Volume 9.4 fL (7.4-10.4); Platelet Count 148 10^3/uL (150-450); Red Cell Distribution Width 14 % (10-15); White Blood Count 16.4 10^3/uL (3.5-10.8)
[2021-01-31 03:48] LABS: ABS Basophils 0.1 10^3/ul (0-0.2); ABS Eosinophils 0.1 10^3/ul (0-0.6); ABS Lymphocytes 11.2 10^3/ul (1.0-4.8); ABS Monocytes 0.6 10^3/ul (0-0.8); ABS Neutrophils 4.2 10^3/ul (1.5-7.7); Eosinophil % 0.6 %; Lymphocyte % 68.7 %
[2021-01-31] MEDS: Mometasone 220 MCG MDI INH SCH (07:26)
[2021-01-31] MEDS: Aspirin EC 81 mg TAB.EC (enteric coated) PO SCH (08:32)
[2021-01-31] MEDS: Cholecalciferol (VIT D3) 1,000 unit TAB PO SCH (08:33)
[2021-01-31 11:14] LABS: POC SO2 64 %
[2021-01-31 11:14] LABS: POC SO2 94 %
[2021-01-31 11:14] LABS: POC SO2 63 %
[2021-01-31 11:36] VITALS: BP 128/67
== END 2021-01-31 11:44 | disposition home or self-care (01) | DRG 287 ==
LOC: ED 13:41 → EDHOLD 18:12 → MEDTELE 21:35
PROVIDERS: ADMIT Internal Medicine Hematology & Oncology; ATTEND Internal Medicine Hematology & Oncology